=== PATIENT | male | born 1945 | race Caucasian/White ===

== ENCOUNTER 2017-10-08 16:43 | Inpatient (IN) | payer MEDICARE ==
[2017-10-08 18:42] LABS: ABS Basophils 0 10^3/ul (0-0.2); ABS Eosinophils 0 10^3/ul (0-0.6); ABS Lymphocytes 1.7 10^3/ul (1.0-4.8); ABS Monocytes 1.2 10^3/ul (0-0.8); ABS Neutrophils 11.9 10^3/ul (1.5-7.7); ABS Nucleated RBC 0 10^3/ul; Eosinophil % 0.1 % (0-6); Hematocrit 40 % (42-52); Hemoglobin 13.9 g/dl (14.0-18.0); Lymphocyte % 11.2 % (25-47); Mean Corpuscular HGB Conc 35 g/dl (31-36); Mean Corpuscular Hemoglobin 31 pg (27-31); Mean Corpuscular Volume 89 fL (80-94); Mean Platelet Volume 8 um3 (7.4-10.4); Nucleated Red Blood Cells % 0; Platelet Count 198 10^3/ul (150-450); Red Cell Distribution Width 14 % (10.5-15); White Blood Count 14.9 10^3/ul (3.5-10.8)
[2017-10-08 18:53] LABS: EGFR Non-African American 73.9 (>60)
--- NOTE | 2017-10-08 19:25 | RAD ---
INDICATION: Swelling of the left great toe COMPARISON: Left great toe radiograph April 20, 2016 TECHNIQUE: 3 views of the left foot were obtained. FINDINGS: There is soft tissue swelling evident at the left great toe. Along the dorsal margin of the distal left great toe phalanx there is a cortical defect similar in appearance to the April 20, 2016 radiograph. Otherwise the adequately corticated bones are properly aligned. Joint spaces appear maintained. No fracture, dislocation or focal bony abnormality is seen. IMPRESSION: SOFT TISSUE SWELLING IS EVIDENT IN THE LEFT GREAT TOE. A CORTICAL DEFECT ALONG THE PLANTAR MARGIN OF THE LEFT GREAT TOE DISTAL PHALANX IS SIMILAR IN APPEARANCE TO THE APRIL 20, 2016 RADIOGRAPH.
[2017-10-08] MEDS ORDERED: NS 0.9% 1000 ML*IV.FLUID IV ONE (19:40)
[2017-10-08 19:48] LABS: INR 1.02 (0.77-1.02)
[2017-10-08] MEDS ORDERED: Cefepime(*) 2 GM in NS 0.9% 50 ML* 50 ML IVPB ONE (19:49)
[2017-10-08] MEDS ORDERED: metroNIDAZOLE IV 500 MG/100ML* 500 MG/100 ML BAG IVPB ONE (19:49)
[2017-10-08] MEDS ORDERED: Ondansetron INJ* 2 MG/ML VIAL IV ONE (19:53)
[2017-10-08] MEDS ORDERED: Vancomycin(*) 1,250 MG in NS 0.9% 250 ML* 250 ML IVPB STA (19:53)
[2017-10-08] MEDS ORDERED: Vancomycin(*) 1,000 MG VIAL IVPB SCH (20:00)
--- NOTE | 2017-10-08 20:00 | ED ---
Lower Extremity - HPI Summary HPI Summary: 72M presents with left foot pain for past week. In the past day he has had increased swelling in his left great toe. He has a history of recurrent ulcer at the location due to his shoes. He states that he was seen for the wound clinic for the ulcer over the summer. The area started to bleed today. He has been having low grade fevers and rigors. He admits to nausea and dizziness. He denies any chest pain or SOB. He denies any abdominal pain. He has mild erythema around area. He has history of neuropathy in area. He does not have a history of PVD. He is diabetic on metformin. He does have stent placed. He had osteo a couple years ago near this toe. - History of Current Complaint Chief Complaint: EDExtremityLower Stated Complaint: LT FOOT BIG TOE SWOLLEN/REDNESS Time Seen by Provider: 10/08/17 18:35 Pain Intensity: 8 - Allergies/Home Medications Allergies/Adverse Reactions: Allergies Allergy/AdvReac Type Severity Reaction Status Date / Time Codeine Allergy Unknown Verified 01/26/16 14:32 Reaction Details Doxycycline Allergy Numbness Verified 10/08/17 17:10 Pregabalin [From Lyrica] Allergy Swelling Verified 10/08/17 17:10 Home Medications: Home Medications metFORMIN* [Glucophage 1000 MG TAB *] 1,000 mg PO BID 10/08/17 [History Confirmed 10/08/17] PMH/Surg Hx/FS Hx/Imm Hx Endocrine/Hematology History: Reports: Hx Diabetes Cardiovascular History: Reports: Hx Hypertension, Other Cardiovascular Problems/ Disorders - stent Denies: Hx Pacemaker/ICD Sensory History: Denies: Hx Hearing Aid Psychiatric History: Denies: Hx Panic Disorder - Surgical History Surgery Procedure, Year, and Place: ANGIOPLASTY STENTS DONE AT [facility] ~8 YEARS AGO PT DOES NOT HAVE ANY CARDS, LITHOTRIPSY, HERNIA REPAIR X2 , WISDOM TOOTH Infectious Disease History: No Infectious Disease History: Denies: Traveled Outside the [place] in Last 30 Days - Family History Known Family History: Positive: Hypertension - Social History Alcohol Use: None Substance Use Type: Reports: None Smoking Status (MU): Never Smoked Tobacco Review of Systems Positive: Fever Negative: Chest Pain Negative: Shortness Of Breath Positive: Other - swelling and redness left great toe All Other Systems Reviewed And Are Negative: Yes Physical Exam Triage Information Reviewed: Yes Vital Signs On Initial Exam: Initial Vitals Temp Pulse Resp BP Pulse Ox 99.4 F 83 17 117/67 96 10/08/17 17:05 10/08/17 17:05 10/08/17 17:05 10/08/17 17:05 10/08/17 17:05 Vital Signs Reviewed: Yes Appearance: Positive: Well-Appearing Skin: Positive: Warm, Dry Head/Face: Positive: Normal Head/Face Inspection Eyes: Positive: Normal, EOMI, KEZIA, Conjunctiva Clear ENT: Positive: Normal ENT inspection, Pharynx normal, TMs normal Respiratory/Lung Sounds: Positive: Clear to Auscultation, Breath Sounds Present Cardiovascular: Positive: Normal, RRR Abdomen Description: Positive: Nontender, Soft Bowel Sounds: Positive: Present Musculoskeletal: Positive: Strength/ROM Intact - left foot, Edema Left - great toe, Other - 2cm by 2cm ulcer on left toe with minimial bleeding, small amount of erythema surrounding area, no sensation to area Neurological: Positive: Normal Psychiatric: Positive: Normal - [place] Coma Scale Coma Scale Total: 15 Diagnostics - Vital Signs Vital Signs Temp Pulse Resp BP Pulse Ox 10/08/17 19:30 78 149/68 96 10/08/17 19:07 80 96 10/08/17 19:04 140/66 10/08/17 17:05 99.4 F 83 17 117/67 96 - Laboratory Lab Results: Lab Results 10/08/17 10/08/17 10/08/17 Range/Units 18:20 18:20 18:20 WBC 14.9 H (3.5-10.8) 10^3/ul RBC 4.50 (4.0-5.4) 10^6/ul Hgb 13.9 L (14.0-18.0) g/dl Hct 40 L (42-52) % MCV 89 (80-94) fL MCH 31 (27-31) pg MCHC 35 (31-36) g/dl RDW 14 (10.5-15) % Plt Count 198 (150-450) 10^3/ul MPV 8 (7.4-10.4) um3 Neut % (Auto) 80.1 (38-83) % Lymph % (Auto) 11.2 L (25-47) % Sutton % (Auto) 8.3 (1-9) % Eos % (Auto) 0.1 (0-6) % Baso % (Auto) 0.3 (0-2) % Absolute Neuts (auto) 11.9 H (1.5-7.7) 10^3/ul Absolute Lymphs (auto) 1.7 (1.0-4.8) 10^3/ul Absolute Monos (auto) 1.2 H (0-0.8) 10^3/ul Absolute Eos (auto) 0 (0-0.6) 10^3/ul Absolute Basos (auto) 0 (0-0.2) 10^3/ul Absolute Nucleated RBC 0 10^3/ul Nucleated RBC % 0 ESR Pending INR (Anticoag Therapy) (0.77-1.02) Sodium 133 (133-145) mmol/L Potassium 4.1 (3.5-5.0) mmol/L Chloride 95 L (101-111) mmol/L Carbon Dioxide 28 (22-32) mmol/L Anion Gap 10 (2-11) mmol/L BUN 18 (6-24) mg/dL Creatinine 1.00 (0.67-1.17) mg/dL Est GFR ( Amer) 95.0 (>60) Est GFR (Non-Af Amer) 73.9 (>60) BUN/Creatinine Ratio 18.0 (8-20) Glucose 191 H (70-100) mg/dL Lactic Acid 2.9 H* (0.5-2.0) mmol/L Calcium 9.8 (8.6-10.3) mg/dL Total Bilirubin 0.60 (0.2-1.0) mg/dL AST 8 L (13-39) U/L ALT 12 (7-52) U/L Alkaline Phosphatase 58 (34-104) U/L C-Reactive Protein 148.61 H (< 5.00) mg/L Total Protein 7.2 (6.4-8.9) g/dL Albumin 4.1 (3.2-5.2) g/dL Globulin 3.1 (2-4) g/dL Albumin/Globulin Ratio 1.3 (1-3) 10/08/17 Range/Units 18:20 WBC (3.5-10.8) 10^3/ul RBC (4.0-5.4) 10^6/ul Hgb (14.0-18.0) g/dl Hct (42-52) % MCV (80-94) fL MCH (27-31) pg MCHC (31-36) g/dl RDW (10.5-15) % Plt Count (150-450) 10^3/ul MPV (7.4-10.4) um3 Neut % (Auto) (38-83) % Lymph % (Auto) (25-47) % Sutton % (Auto) (1-9) % Eos % (Auto) (0-6) % Baso % (Auto) (0-2) % Absolute Neuts (auto) (1.5-7.7) 10^3/ul Absolute Lymphs (auto) (1.0-4.8) 10^3/ul Absolute Monos (auto) (0-0.8) 10^3/ul Absolute Eos (auto) (0-0.6) 10^3/ul Absolute Basos (auto) (0-0.2) 10^3/ul Absolute Nucleated RBC 10^3/ul Nucleated RBC % ESR INR (Anticoag Therapy) 1.02 (0.77-1.02) Sodium (133-145) mmol/L Potassium (3.5-5.0) mmol/L Chloride (101-111) mmol/L Carbon Dioxide (22-32) mmol/L Anion Gap (2-11) mmol/L BUN (6-24) mg/dL Creatinine (0.67-1.17) mg/dL Est GFR ( Amer) (>60) Est GFR (Non-Af Amer) (>60) BUN/Creatinine Ratio (8-20) Glucose (70-100) mg/dL Lactic Acid (0.5-2.0) mmol/L Calcium (8.6-10.3) mg/dL Total Bilirubin (0.2-1.0) mg/dL AST (13-39) U/L ALT (7-52) U/L Alkaline Phosphatase (34-104) U/L C-Reactive Protein (< 5.00) mg/L Total Protein (6.4-8.9) g/dL Albumin (3.2-5.2) g/dL Globulin (2-4) g/dL Albumin/Globulin Ratio (1-3) Result Diagrams: 10/08/17 18:20 10/08/17 18:20 Lab Statement: Any lab studies that have been ordered have been reviewed, and results considered in the medical decision making process. Lower Extremity Course/Dx - Course Course Of Treatment: 72M presents with left foot pain for past week. In the past day he has had increased swelling in his left great toe. He has a history of recurrent ulcer at the location due to his shoes. He states that he was seen for the wound clinic for the ulcer over the summer. The area started to bleed today. He has been having low grade fevers and rigors. He admits to nausea and dizziness. He denies any chest pain or SOB. He denies any abdominal pain. He has mild erythema around area. He has history of neuropathy in area. He does not have a history of PVD. He is diabetic on metformin. He does have stent placed. He had osteo a couple years ago near this toe. on exam has 2cm by 2cm ulceration of left great toe with edema and erythema. wbc 14 and lactic 2.9 xray shows soft tissue swelling. dr sears called and recommended vascular study on patient which was normal. gave iv fluids and antibiotic accoring to septic criteria. dr nieto agrees to admit for diabetic ulcer. - Diagnoses Differential Diagnosis/HQI/PQRI: Positive: Cellulitis, Osteomyelitis, Other - diabetic ulcer Provider Diagnoses: Diabetic foot ulcer Discharge - Discharge Plan Condition: Stable Disposition: ADMITTED TO [facility]
--- NOTE | 2017-10-08 22:02 | RAD ---
INDICATION: Left lower extremity claudication. COMPARISON: MARLYN dated April 20, 2016 TECHNIQUE: Rubio scale, color Doppler, and spectral analysis utilized to image the left lower extremity arteries. Flow velocities were determined at each visualized artery. REPORT: The left common femoral artery, proximal femoral profundus, superficial femoral artery, popliteal artery and infrapopliteal arteries exhibit patency. There is flow identified at the dorsalis pedis and distal most portion of the posterior tibial artery. There are mildly elevated flow velocities recorded and the superficial femoral artery measuring 151 cm/s proximally and up to 178 cm/s at the mid SFA. The popliteal artery measures up to 116 cm/s. There are no pathologically dilated arteries visualized. IMPRESSION: In-line flow is documented from the common iliac to proximal pedal arteries in the left lower extremity. There are mildly increased flow velocities in the superficial femoral and popliteal arteries.
[2017-10-08 23:33] LABS: Urine Appearance Clear; Urine Blood Negative (Negative); Urine Color Yellow; Urine Ketones Trace (Negative); Urine Protein 1+(30 mg/dL) (Negative); Urine Specific Gravity 1.017 (1.010-1.030); Urine Urobilinogen Negative (Negative)
[2017-10-08] MEDS ORDERED: Dextrose 50% Syringe 50 ML* 25 GM/50 ML SYRINGE IV PUSH PRN (23:55)
[2017-10-09] MEDS ORDERED: Vancomycin per Pharmacy* NOTE FOLLOW UP PRN (00:02)
[2017-10-09] MEDS: Insulin LISPRO* 1 UNITS UNIT SUBCUT SCH ×5 (00:29→20:52)
[2017-10-09] MEDS: Atorvastatin* 20 MG TAB PO SCH ×2 (00:31→17:34)
[2017-10-09] MEDS ORDERED: Cefepime(*) 2 GM in D5W 100 ML BAG* 100 ML IVPB ONE (01:00)
[2017-10-09] MEDS: metroNIDAZOLE IV 500 MG/100ML* 500 MG/100 ML BAG IVPB SCH ×3 (03:32→20:18)
[2017-10-09 05:43] LABS: ABS Basophils 0 10^3/ul (0-0.2); ABS Eosinophils 0 10^3/ul (0-0.6); ABS Lymphocytes 1.5 10^3/ul (1.0-4.8); ABS Monocytes 0.9 10^3/ul (0-0.8); ABS Nucleated RBC 0 10^3/ul; Eosinophil % 0.2 % (0-6); Hematocrit 33 % (42-52); Hemoglobin 11.7 g/dl (14.0-18.0); Lymphocyte % 14.3 % (25-47); Mean Corpuscular HGB Conc 36 g/dl (31-36); Mean Corpuscular Hemoglobin 32 pg (27-31); Mean Corpuscular Volume 89 fL (80-94); Mean Platelet Volume 8 um3 (7.4-10.4); Nucleated Red Blood Cells % 0; Platelet Count 148 10^3/ul (150-450); Red Blood Count 3.72 10^6/ul (4.0-5.4); Red Cell Distribution Width 14 % (10.5-15); White Blood Count 10.4 10^3/ul (3.5-10.8)
[2017-10-09 06:01] LABS: EGFR Non-African American 92.9 (>60)
--- NOTE | 2017-10-09 07:31 | HP ---
HISTORY AND PHYSICAL: DATE OF ADMISSION: 10/08/17 ADMITTING PROVIDER: Calin Tijerina MD PRIMARY CARE PHYSICIAN: Jose F Gupta MD CHIEF COMPLAINT: Fevers, chills, left first toe ulceration x2 to 3 weeks with open drainage. 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 The patient denies any recent antibiotic use. He does see a senior sales assistant starts with a 'P', he states but cannot relate otherwise, does not have a firm grasp on his medication history, who presents with leukocytosis, subjective fevers, lactic acid at 2.9 and x-ray of the left foot showing soft tissue swelling, CRP elevated at 148. Started on Flagyl, vancomycin, and cefepime for concern for diabetic foot ulcer. The patient denies any headaches, does have episode of severe nausea the morning of admission, no dysuria. The patient has noted some erythema on his left foot. PAST MEDICAL HISTORY: 1. Hypertension. 2. Diabetes. 3. Diabetic neuropathy. 4. Hyperlipidemia. HOME MEDICATIONS: 1. Simvastatin 40 mg q.p.m. 2. Lisinopril 10 mg/hydrochlorothiazide 12.5 mg p.o. daily. 3. Gabapentin 600 mg p.o. t.i.d. 4. Plavix 75 mg p.o. daily. 5. Atenolol 50 mg p.o. daily. 6. Aspirin 325 mg daily. 7. Metformin 1000 mg p.o. b.i.d. ALLERGIES: CODEINE, DOXYCYCLINE, PREGABALIN. FAMILY HISTORY: Father of heart disease at age 47, mother at age 94. SOCIAL HISTORY: Nonsmoker, nondrinker. The patient desires to be a full code. REVIEW OF SYSTEMS: Complete 14-point review of systems is negative except as per HPI. PHYSICAL EXAMINATION GENERAL APPEARANCE: No acute distress. VITAL SIGNS: Currently temperature 101.1, satting 94% on room air, respiratory rate 18, pulse 80, and blood pressure 132/68. HEENT: Normocephalic, atraumatic. Pupils equally round and reactive to light. Extraocular motions are intact. Oropharynx clear. NECK: Supple. PULMONARY: Clear to auscultation bilaterally with no wheezing, rales, or rhonchi. CARDIOVASCULAR: Regular rate and rhythm. No murmurs, rubs, or gallops. ABDOMEN: Soft, nontender, nondistended. No peritoneal signs. No guarding. EXTREMITIES: Warm, well perfused. Left foot with erythema and distal first toe with an area of ulceration and erythema, no davie drainage. NEUROLOGIC: Cranial nerves II through XII grossly intact. LABORATORY DATA: White count 14.9, hemoglobin 13.9, hematocrit 40, platelets 198. INR 1.02. Sodium 133, potassium 4.1, chloride 95, carbon dioxide 28, creatinine 1.00, glucose 191, lactic acid 2.9, CRP 148, troponin 0.00. Urinalysis 1+ protein, 1+ rbc's, trace ketones. IMAGING: Foot x-ray of the left foot demonstrated soft tissue left great toe with a cortical defect along the plantar margin of the left great toe distal phalanx, similar in appearance to 04/20/16. Duplex of the lower left extremity showed in- line flow documented from the common iliac to proximal pedal arteries in the left lower extremity. There is a mild increase in flow velocities at the superficial femoral and popliteal arteries. ASSESSMENT AND PLAN: The patient is a 72-year-old male presenting with likely a diabetic foot ulcer with elevated lactic acid, fevers, leukocytosis, meeting SIRS criteria. The patient is being admitted for inpatient status for IV antibiotics. We will get a wound consult. Consider MRI of the left lower extremity. We will add ESR. Consider ID consult. We will continue the vancomycin, Flagyl, and cefepime for now. We will put him on sliding scale insulin. Hold his metformin. Point of care testing q.a.c. and q.h.s. Continue his atenolol and hold his lisinopril/hydrochlorothiazide for now. We will titrate back his antihypertensives in the setting of infection as able. We will continue his Plavix and aspirin. Continue simvastatin. Continue carbohydrate consistent diet. He is a full code. [id number]/CPS #: [id number] MTDD
[2017-10-09] MEDS ORDERED: Atenolol TAB* 50 MG PO SCH (09:00)
[2017-10-09] MEDS ORDERED: Aspirin TAB* 325 MG PO SCH (09:00)
[2017-10-09] MEDS ORDERED: Clopidogrel TAB* 75 MG PO SCH (09:00)
[2017-10-09] MEDS: Gabapentin CAP(*) 300 MG PO SCH ×3 (09:37→20:52)
[2017-10-09] MEDS ORDERED: Vancomycin(*) 1,000 MG in NS 0.9% 250 ML* 250 ML IVPB SCH (10:00)
[2017-10-09] MEDS ORDERED: Morphine INJ* 2 MG/ML 1 ML SYRINGE (TWO MG - NEW SYRINGE VERSION) IV ONE (10:44)
[2017-10-09] MEDS: Cefepime(*) 2 GM in D5W 50 ML BAG* 50 ML IVPB SCH (13:40)
[2017-10-09] MEDS: oxyCODONE/Acetamin 5/325 MG* TAB PO PRN (15:02)
--- NOTE | 2017-10-09 16:06 | RAD ---
Indication: Ulcer at the LEFT great toe. Assess for osteomyelitis Comparison: October 08, 2017 radiographs. May 03, 2016 3 phase bone scan Technique: Tiny Picturesa 1.5 Farzana [id number] with GEM suite. Noncontrast MRI LEFT foot from the level of the transverse tarsal joint through the toes. Report: Diffuse bone marrow edema at the first distal phalanx with osseous erosion at the tuft and partial loss of normal T1 marrow hyperintensity throughout. Small interphalangeal joint effusion. No additional suspicious bone marrow signal change within the [id number]. Negative for fracture. Diffuse subcutaneous tissue plane and skeletal muscle edema without evidence for a loculated soft tissue abscess collection. IMPRESSION: The constellation of findings is consistent with osteomyelitis at the first distal phalanx corresponding with the reported soft tissue ulcer. No loculated soft tissue plane abscess collection evident.
--- NOTE | 2017-10-09 20:07 | PN ---
Subjective Date of Service: 10/09/17 Interval History: Patient seen and examined. Was initially refusing insulin per RN, but now ok with taking. Had MRI, states pain improved after morphine before MRI and PRN percocet, Has significant neuropathy at baseline, but stabbing quality pain to affected wound. Some chills intermittently when pain increases. Low grade fevers overnight. Tolerating PO. No chest pain, no SO, no N/V. Objective Active Medications: Acetaminophen (Tylenol Tab*) 650 mg PO Q6H PRN PRN Reason: FEVER/PAIN Aspirin (Aspirin Tab*) 325 mg PO BEDTIME JEANNE Atenolol (Tenormin Tab*) 50 mg PO BEDTIME JEANNE Atorvastatin Calcium (Lipitor*) 20 mg PO QPM [facility] Last Admin: 10/09/17 17:34 Dose: Not Given Clopidogrel Bisulfate (Plavix Tab*) 75 mg PO 2100 [facility] Dextrose (D50w Syringe 50 Ml*) 12.5 gm IV PUSH .FOR FS < 60 - SS PRN PRN Reason: FS < 60 Gabapentin (Neurontin Cap(*)) 600 mg PO TID [facility] Last Admin: 10/09/17 13:40 Dose: 600 mg Metronidazole/Sodium Chloride (Flagyl 500 Mg Ivpb*) 500 mg in 100 mls @ 100 mls /hr IVPB Q8H [facility] Last Admin: 10/09/17 12:36 Dose: 100 mls/hr Cefepime HCl 2 gm/ Dextrose 50 mls @ 100 mls/hr IVPB Q12H [facility] Last Admin: 10/09/17 13:40 Dose: 100 mls/hr Insulin Human Lispro (Humalog*) 0 units SUBCUT ACHS [facility] PRN Reason: Protocol Last Admin: 10/09/17 18:12 Dose: 2 units Oxycodone/Acetaminophen (Percocet 5/325 Tab*) 1 tab PO Q6H PRN PRN Reason: PAIN Last Admin: 10/09/17 15:02 Dose: 1 tab Pharmacy Profile Note (Vancomycin Trough Check) 1 note FOLLOW UP 929 ONE Stop: 10/10/17 09:31 Vital Signs - 8 hr 10/09/17 10/09/17 10/09/17 13:27 13:40 15:02 Respiratory 16 16 16 Rate 10/09/17 17:36 Respiratory 16 Rate Oxygen Devices in Use Now: None Appearance: Alert, NAD Eyes: No Scleral Icterus, PERRLA Ears/Nose/Mouth/Throat: NL Teeth, Lips, Gums, Mucous Membranes Moist Neck: NL Appearance and Movements; NL JVP, Trachea Midline Respiratory: Symmetrical Chest Expansion and Respiratory Effort, Clear to Auscultation Cardiovascular: NL Sounds; No Murmurs; No JVD, RRR Abdominal: NL Sounds; No Tenderness; No Distention Extremities: No Edema - wound dressed and wrapped, dressing CDI Skin: No Rash or Ulcers Neurological: Alert and Oriented x 3 Nutrition: Taking PO's Result Diagrams: 10/09/17 05:25 10/09/17 05:25 Additional Lab and Data: Lab Results 10/08/17 10/08/17 10/08/17 Range/Units 18:20 18:20 18:20 WBC 14.9 H (3.5-10.8) 10^3/ul RBC 4.50 (4.0-5.4) 10^6/ul Hgb 13.9 L (14.0-18.0) g/dl Hct 40 L (42-52) % MCV 89 (80-94) fL MCH 31 (27-31) pg MCHC 35 (31-36) g/dl RDW 14 (10.5-15) % Plt Count 198 (150-450) 10^3/ul MPV 8 (7.4-10.4) um3 Neut % (Auto) 80.1 (38-83) % Lymph % (Auto) 11.2 L (25-47) % [place] % (Auto) 8.3 (1-9) % Eos % (Auto) 0.1 (0-6) % Baso % (Auto) 0.3 (0-2) % Absolute Neuts (auto) 11.9 H (1.5-7.7) 10^3/ul Absolute Lymphs (auto) 1.7 (1.0-4.8) 10^3/ul Absolute Monos (auto) 1.2 H (0-0.8) 10^3/ul Absolute Eos (auto) 0 (0-0.6) 10^3/ul Absolute Basos (auto) 0 (0-0.2) 10^3/ul Absolute Nucleated RBC 0 10^3/ul Nucleated RBC % 0 ESR Pending INR (Anticoag Therapy) (0.77-1.02) Sodium 133 (133-145) mmol/L Potassium 4.1 (3.5-5.0) mmol/L Chloride 95 L (101-111) mmol/L Carbon Dioxide 28 (22-32) mmol/L Anion Gap 10 (2-11) mmol/L BUN 18 (6-24) mg/dL Creatinine 1.00 (0.67-1.17) mg/dL Est GFR ( Amer) 95.0 (>60) Est GFR (Non-Af Amer) 73.9 (>60) BUN/Creatinine Ratio 18.0 (8-20) Glucose 191 H (70-100) mg/dL Lactic Acid 2.9 H* (0.5-2.0) mmol/L Calcium 9.8 (8.6-10.3) mg/dL Total Bilirubin 0.60 (0.2-1.0) mg/dL AST 8 L (13-39) U/L ALT 12 (7-52) U/L Alkaline Phosphatase 58 (34-104) U/L C-Reactive Protein 148.61 H (< 5.00) mg/L Total Protein 7.2 (6.4-8.9) g/dL Albumin 4.1 (3.2-5.2) g/dL Globulin 3.1 (2-4) g/dL Albumin/Globulin Ratio 1.3 (1-3) 10/08/17 Range/Units 18:20 WBC (3.5-10.8) 10^3/ul RBC (4.0-5.4) 10^6/ul Hgb (14.0-18.0) g/dl Hct (42-52) % MCV (80-94) fL MCH (27-31) pg MCHC (31-36) g/dl RDW (10.5-15) % Plt Count (150-450) 10^3/ul MPV (7.4-10.4) um3 Neut % (Auto) (38-83) % Lymph % (Auto) (25-47) % [place] % (Auto) (1-9) % Eos % (Auto) (0-6) % Baso % (Auto) (0-2) % Absolute Neuts (auto) (1.5-7.7) 10^3/ul Absolute Lymphs (auto) (1.0-4.8) 10^3/ul Absolute Monos (auto) (0-0.8) 10^3/ul Absolute Eos (auto) (0-0.6) 10^3/ul Absolute Basos (auto) (0-0.2) 10^3/ul Absolute Nucleated RBC 10^3/ul Nucleated RBC % ESR INR (Anticoag Therapy) 1.02 (0.77-1.02) Sodium (133-145) mmol/L Potassium (3.5-5.0) mmol/L Chloride (101-111) mmol/L Carbon Dioxide (22-32) mmol/L Anion Gap (2-11) mmol/L BUN (6-24) mg/dL Creatinine (0.67-1.17) mg/dL Est GFR ( Amer) (>60) Est GFR (Non-Af Amer) (>60) BUN/Creatinine Ratio (8-20) Glucose (70-100) mg/dL Lactic Acid (0.5-2.0) mmol/L Calcium (8.6-10.3) mg/dL Total Bilirubin (0.2-1.0) mg/dL AST (13-39) U/L ALT (7-52) U/L Alkaline Phosphatase (34-104) U/L C-Reactive Protein (< 5.00) mg/L Total Protein (6.4-8.9) g/dL Albumin (3.2-5.2) g/dL Globulin (2-4) g/dL Albumin/Globulin Ratio (1-3) Microbiology and Other Data: Microbiology 10/09/17 00:30 Nasal Screen MRSA (PCR)(JACKELIN) - Final Nasal Mrsa Negative Diagnostic Imaging: Patient Name: ZORA GASPAR Medical Record#: [id number] Ordering Physician: Britany Grant NP Acct.#: [id number] : 1945 Age: 72 Sex: M Location: SURGICAL STAY UNIT Exam Date: 10/09/17 0750 ADM Status: ADM IN Order Information: MRI LOWER EXTREMITY LEFT W/O Accession Number: [id number] CPT: 46715 Indication: Ulcer at the LEFT great toe. Assess for osteomyelitis Comparison: October 08, 2017 radiographs. May 03, 2016 3 phase bone scan Technique: GE [place] 1.5 Farzana [id number] with GEM suite. Noncontrast MRI LEFT foot from the level of the transverse tarsal joint through the toes. Report: Diffuse bone marrow edema at the first distal phalanx with osseous erosion at the tuft and partial loss of normal T1 marrow hyperintensity throughout. Small interphalangeal joint effusion. No additional suspicious bone marrow signal change within the [id number]. Negative for fracture. Diffuse subcutaneous tissue plane and skeletal muscle edema without evidence for a loculated soft tissue abscess collection. IMPRESSION: The constellation of findings is consistent with osteomyelitis at the first distal phalanx corresponding with the reported soft tissue ulcer. No loculated soft tissue plane abscess collection evident. <Electronically signed by Samson Ortiz MD in OV> 10/09/17 1602 Dictated By: Samson Ortiz MD Dictated Date/Time: 10/09/17 1602 Transcribed Date/Time: 10/09/17 9868 Copy to: CC:Jluis Zepeda MD; Britany Grant NP; Calin Tijerina MD; Jose F Gupta MD Imaging - [facility] Imaging - [facility] [address] [address] ph ([phone]) ph ([phone]) ph ([phone]) 1 of 1 Assess/Plan/Problems-Billing Assessment: This is a 72 year old male patient with severe diabetic toe wound, neuropathy, HTN and HLP that now presents with osteomyelitis of the toe requiring IV atbx and surgical consultation. - Patient Problems (1) Acute osteomyelitis of toe of left foot Code(s): M86.172 - OTHER ACUTE OSTEOMYELITIS, LEFT ANKLE AND FOOT SNOMED Code( s): 903197724 Comment: - ID consulted - MRI as above - Will consult surgery in AM to evaluate MRI, consider debridement vs partial amputation? - Local wound care - Follow cultures - Follow temps and WBCs - NPM=775, LA=1.5 (2) Diabetes mellitus Code(s): E11.9 - TYPE 2 DIABETES MELLITUS WITHOUT COMPLICATIONS SNOMED Code(s) : 62108976 Comment: - Lispro SS with BG AC and HS (3) Diabetic neuropathy Code(s): E11.40 - TYPE 2 DIABETES MELLITUS WITH DIABETIC NEUROPATHY, UNSP SNOMED Code(s): 716171203 Comment: - Maintained on gabapentin - Percocet PRN (4) Hypertension Code(s): I10 - ESSENTIAL (PRIMARY) HYPERTENSION SNOMED Code(s): 67523171 Comment: - Stable on atenolol (5) Hyperlipidemia Code(s): E78.5 - HYPERLIPIDEMIA, UNSPECIFIED SNOMED Code(s): 41395402 Comment: - may use simvastatin from home Status and Disposition: Remain inpatient for IV atbx and possible surgical intervention. Counseling and/or Coordination of Care Minutes: coordinated with staff and patient.
[2017-10-09] MEDS: Acetaminophen TAB* 325 MG PO PRN (20:18)
[2017-10-09] MEDS: Atenolol TAB* 50 MG PO SCH (20:52)
[2017-10-09] MEDS: Aspirin TAB* 325 MG PO SCH (20:52)
[2017-10-09] MEDS: Clopidogrel TAB* 75 MG PO SCH (20:52)
--- NOTE | 2017-10-09 22:20 | CONS ---
CONSULTATION REPORT: DATE OF CONSULTATION: 10/09/17 REQUESTING PROVIDER: Britany Grant NP CONSULTING SERVICE: Infectious Disease. REASON FOR CONSULTATION: Left great toe infection. IMPRESSION: 1. Distal left great toe ulcer in the setting of a hammertoe deformity, diabetic neuropathy, mild vascular disease. He is growing group B-strep in the blood, source is likely the toe, he has had an MRI that shows osteomyelitis of distal phalanx. Given the duration of his symptoms, I suspect he most likely has a chronic osteomyelitis. 2. Diabetes with neuropathy. 3. History of left great toe ulcer 2016, which has come and gone over the last year and a half. RECOMMENDATIONS: 1. We will stop vancomycin, continue Flagyl, change cefepime to ceftriaxone and check a transthoracic echocardiogram. Given another good source for the bacteremia, no murmur and no peripheral stigmata, if there is a negative transthoracic echocardiogram, there is no infective endocarditis. 2. I will ask Dr. Carr and Dr. Harding to check in with him. The patient and I discussed combination of partial toe amputation and mcfp antibiotics as his best chance to cure this and prevent relapse and remission of his ulcer over the next months to years. HISTORY OF PRESENT ILLNESS: This is a 72-year-old man with diabetes, neuropathy , and left great toe infection, admitted with fevers, chills, and redness in the toes spreading up to forefoot and midfoot. He came to the hospital on the and an x- ray was taken in the emergency room that showed a cortical defect on the plantar distal phalanx. He had an MRI today that showed osteomyelitis of the distal phalanx, left great toe as well. He was started on vancomycin, cefepime, Flagyl overnight. Blood cultures were taken that came back all growing Group B streptococcus. He had fever to 38.5 overnight, he is afebrile now, he does not have pain in the toe, does not have much feeling in his toes at all. His white count was 15,000 on admission, it is down to 10,000 today. About a year and a half ago, he was followed at the wound clinic, the left great toe had a similar presentation. He had an x-ray at that time that showed cortical changes in the distal phalanx as well. The wound eventually healed up , though has since then sometimes opened partially, then closed again, has developed a callus, has followed with the Podiatry. PAST MEDICAL HISTORY: 1. Diabetes with neuropathy. 2. Left great toe osteomyelitis. 3. Hypertension. 4. Hyperlipidemia. ALLERGIES: CODEINE, DOXYCYCLINE, PREGABALIN. MEDICATIONS: 1. Tylenol. 2. Aspirin. 3. Atenolol. 4. Lipitor. 5. Cefepime 2 g IV every 12 hours. 6. Plavix. 7. Gabapentin. 8. Flagyl 500 mg every 8 hours. 9. Vancomycin. SOCIAL HISTORY: He lives outside [place] with . He has no travel. FAMILY HISTORY: No recurrent infections or tuberculosis. Father at 47 with coronary artery disease. Mother at 94 of old age. REVIEW OF SYSTEMS: A 14-point review of systems is negative except as noted above. PHYSICAL EXAMINATION: Vital Signs: Temperature is 37.5, heart rate 95, respiratory rate 20, blood pressure 140/70, oxygen saturation is 93% on room air. In general, he is awake, not in distress. Neurologic: He is oriented x3. Follows all commands. Answers all questions. Moves all the extremities. Sensation is decreased to light touch in both feet. HEENT: There is no conjunctival hemorrhage. Oropharynx is without lesions. Neck: Supple. Lymph nodes: There is no inguinal, axillary, or epitrochlear lymphadenopathy. Heart: Regular rate and rhythm without murmurs, rubs, or gallops. Lungs: Clear to auscultation bilaterally. Abdomen: Soft, nontender, nondistended. There are bowel sounds present. Skin: There is no rash or splinter hemorrhages. Musculoskeletal: There is no spine tenderness to palpation. There is 1+ dorsalis pedis pulses bilaterally. The left great toe has somewhat of a hammertoe deformity and a distal ulcer at the tip with a surrounding callus, extends up to the nail bed. There is nothing draining, there is nothing to culture, there is no fluctuance or crepitus. There is diffuse edema, distortion of the toe anatomy and erythema spreading up into the forefoot. LABORATORY DATA: White blood cell count 10, hemoglobin 11.7, platelets 148, creatinine 0.8, CRP was 115 on admission. Please see impression and recommendations outlined above. Thank you for asking me to see Mr. Mejia in consultation. [id number]/[facility] #: [id number] [facility]
[2017-10-10] MEDS: Cefepime(*) 2 GM in D5W 50 ML BAG* 50 ML IVPB SCH ×2 (01:03→13:32)
[2017-10-10] MEDS: metroNIDAZOLE IV 500 MG/100ML* 500 MG/100 ML BAG IVPB SCH ×3 (03:59→19:40)
[2017-10-10 06:25] LABS: ABS Basophils 0 10^3/ul (0-0.2); ABS Eosinophils 0 10^3/ul (0-0.6); ABS Lymphocytes 1.2 10^3/ul (1.0-4.8); ABS Monocytes 0.8 10^3/ul (0-0.8); ABS Neutrophils 5.9 10^3/ul (1.5-7.7); ABS Nucleated RBC 0 10^3/ul; Eosinophil % 0.5 % (0-6); Hematocrit 36 % (42-52); Hemoglobin 12.2 g/dl (14.0-18.0); Lymphocyte % 15.5 % (25-47); Mean Corpuscular HGB Conc 34 g/dl (31-36); Mean Corpuscular Hemoglobin 30 pg (27-31); Mean Corpuscular Volume 89 fL (80-94); Mean Platelet Volume 8 um3 (7.4-10.4); Nucleated Red Blood Cells % 0.2; Platelet Count 147 10^3/ul (150-450); Red Blood Count 4.04 10^6/ul (4.0-5.4); Red Cell Distribution Width 14 % (10.5-15); White Blood Count 8.1 10^3/ul (3.5-10.8)
[2017-10-10 06:36] LABS: EGFR Non-African American 77.4 (>60)
[2017-10-10] MEDS: Insulin LISPRO* 1 UNITS UNIT SUBCUT SCH ×4 (08:03→21:27)
[2017-10-10] MEDS ORDERED: Vancomycin Trough Check NOTE FOLLOW UP ONE (09:30)
[2017-10-10] MEDS: Gabapentin CAP(*) 300 MG PO SCH ×3 (10:32→21:25)
--- NOTE | 2017-10-10 12:42 | HP ---
ORTHOPEDIC HISTORY AND PHYSICAL/CONSULTATION: DATE OF ADMISSION: 10/10/17 REQUESTING SERVICE: Infectious Diseases. CHIEF COMPLAINT: Left great toe pain. HISTORY OF PRESENT ILLNESS: Shayne is a 72-year-old man with diabetes, diabetic neuropathy, coronary artery disease, who presents with fevers and chills and left great toe pain and infection. He reports that he has had multiple ulcers on his great toe over the last few years that periodically close up and reopen. This most recent bout started 2 to 3 weeks ago with an ulcer at the tip of his great toe. He reports that pain, swelling and redness have gradually gotten worse over the last few weeks. He was admitted to the medical service and Infectious Diseases was consulted and recommended a surgical consultation when osteomyelitis was found. The pain and ulcer are located at the left great toe and are reported as daily, mild, dull. He reports that the pain is worse with dependency and weightbearing, and improved with elevation and rest. There is associated swelling and redness. PAST MEDICAL HISTORY: Coronary artery disease, hypertension, diabetes, diabetic neuropathy, hyperlipidemia. PAST SURGICAL HISTORY: He reports that he had stents placed in 2002 and he has been on Plavix since then. HOME MEDICATIONS: 1. Simvastatin. 2. Lisinopril. 3. Gabapentin. 4. Plavix. 5. Atenolol. 6. Aspirin. 7. Metformin. ALLERGIES: CODEINE, DOXYCYCLINE, PREGABALIN. FAMILY HISTORY: Heart disease in his father. SOCIAL HISTORY: He does not smoke or use illicit drugs. He uses no assistive ambulatory devices at baseline. REVIEW OF SYSTEMS: Positive for recent fever. Negative for recent visual changes, difficulty swallowing, chest pain, shortness of breath, abdominal pain , hematuria, easy bruising, diffuse weakness, lack of coordination, or diffuse rash. PHYSICAL EXAMINATION GENERAL: He is well appearing and in no acute distress. VITAL SIGNS: His temperature is 99.0, pulse rate 71, respiratory rate 16, O2 saturation 97% on room air, and blood pressure 121/64. CARDIOVASCULAR: Pulse examination reveals weak, but present, dorsalis pedal pulses bilaterally. He does have brisk capillary refill in all 4 of his extremities. There are no varicosities. LYMPHATIC: No lymphadenopathy is appreciated to the left lower extremity. SKIN: Bilateral upper and right lower extremity do not reveal any ulcerative lesions. PSYCHIATRIC/NEUROLOGICAL: He has appropriate mood and affect. He is alert and oriented to person, place and time. There is no significant abnormality in coordination appreciated. He has normoreflexive in the left lower extremity. ABDOMEN: He is soft, nontender, nondistended. MUSCULOSKELETAL: Gait analysis reveals a bit of an antalgic gait on the left side. Bilateral upper extremities and contralateral lower extremity show full range of motion and no evidence of instability and no tenderness to palpation. He has 5/5 strength and there is no gross deformity. Examination of the left lower extremity reveals with sitting he has good 5/5 motor strength, but does have increased light touch sensation throughout the foot. There is no global swelling, edema, or varicosities; however, there is some local swelling at the great toe with some erythema. There is an ulcer at the tip of the great toe as well without active drainage at this time. There is associated erythema. He does have a weakly palpable dorsalis pedis pulse and good capillary refill. He has painless range of motion of the ankle. IMAGING: X-rays and MRI were obtained and independently reviewed and do show osteomyelitis of the distal phalanx of the left great toe. LABORATORY DATA: CRP 148. White blood count 8.1, down from 14.9 on admission; hematocrit 36. ESR 41. ASSESSMENT: Shayne is a 72-year-old man with diabetic neuropathy who has had recurrent problem with his left great toe with ulceration. He does now have both an ulceration and underlying osteomyelitis of the distal phalanx. We discussed both nonoperative and operative options at length today in his hospital room. This did include nonoperative treatment with antibiotics versus a partial great toe amputation. We discussed the pros and cons and risks and benefits of surgery at length. These did include possibility of not healing and clearing the infection, need for further surgery or amputation, and even the chance catastrophic complication, such as loss of limb. We also discussed basic surgical risks including bleeding, infection, wound problems, and blood clot. After having this discussion he did express his desire to move forward with a left partial great toe amputation. Therefore, we will plan on doing this tomorrow. He will be n.p.o. from midnight tonight. We did discuss the recovery and all of his questions were answered. [id number]/[facility] #: [id number] TANGELA
--- NOTE | 2017-10-10 13:22 | ECHO ---
Patient: ZORA GASPAR [facility] Rec#: [id number] : 1945 Date: 10/10/2017 Age: 72y Height: 175.26 cm / 69.0 in Weight: 78.93 kg / 174.0 lbs Sex: M BSA: 1.95 Room#: [facility] Admit Date#: 10/08/2017 Type: Inpatient Referring: Jluis Zepeda MD Reading: Kenya Jiang MD Highway Landscape Architect: Ifrah HamiltonMALORIE CC: Jose F Gupta MD Transthoracic Echocardiogram Indication: Bacteremia, + BC BP: 139/79 HR: 65 Rhythm: NSR Findings History: DMII, HTN, HLD, + BS strep Agalactiae. Technical Comments: The study quality is fair. Completed at 0935. Left Ventricle: The left ventricular chamber size is normal. Mild concentric left ventricular hypertrophy is observed. There is normal left ventricular systolic function. The estimated ejection fraction is 60-65%. There is no consistent Doppler evidence of clinically significant diastolic dysfunction. Left Atrium: The left atrium is mildly dilated. Right Ventricle: Moderator Band present. The right ventricle is mildly dilated. Near the apex is an area of relative hypokinesis on the free wall, hinge point seen. The right ventricular global systolic function is low normal. Right Atrium: The right atrium is moderately dilated. Aortic Valve: The aortic valve is trileaflet. There is mild thickening of the non coronary cusp.Lambl'e exressence noted. There is a trace of aortic regurgitation. There is no evidence of aortic stenosis. A mass is visualized on the aortic valve which appears consistent with a vegetation.image 7, posterior leaflet, narrow mobile structure flipping to both sides of the leaflet. Mitral Valve: There is posterior mitral annular calcification. The mitral valve leaflets are mildly thickened. There is a trace of mitral regurgitation. There is no evidence of mitral stenosis. No vegetation is observed on the mitral valve. Tricuspid Valve: The tricuspid valve leaflets are normal. There is mild tricuspid regurgitation. The right ventricular systolic pressure is estimated at 33 mmHg. No pulmonary hypertension is noted. There is no tricuspid stenosis. No vegetation is observed on the tricuspid valve. Pulmonic Valve: The pulmonic valve appears normal. There is a trace pulmonic regurgitation. There is no pulmonic stenosis. No vegetation is observed on the pulmonic valve. Pericardium: There is no significant pericardial effusion. Aorta: There is mild dilatation of the ascending aorta. There is no dilatation of the aortic arch. There is moderate dilatation of the aortic root. Pulmonary Artery: The main pulmonary artery appears normal. Venous: The inferior vena cava is dilated. There is an approximate 50% respiratory change in the inferior vena cava dimension. Conclusions Mild concentric left ventricular hypertrophy is observed. There is normal left ventricular systolic function. The estimated ejection fraction is 60-65%. The right ventricle is mildly dilated. Near the apex of the free wall of the RV is an area of relative hypokinesis, hinge point seen. There is mild thickening of the non coronary cusp of the trileaflet aortic valve. Lambl'e exressence noted posteriorly (0.1x0.4 cm). Aadditionaly, a mass is visualized on the aortic valve suggestive of a vegetation: image 7, posterior leaflet, narrow mobile structure flipping to both sides of the leaflet (0.3 x 0.6 cm). There is a trace of aortic regurgitation. The mitral valve leaflets are mildly thickened. There is a trace of mitral regurgitation. There is mild tricuspid regurgitation. There is a trace pulmonic regurgitation. Mild dilatation of the ascending aorta: 3.7 cm. No prior study to compare. Consider MARAH (transesophogeal echo) for follow up on aortic valve iif clinically appropriate. Measurements Name Value Normal Range RVIDd (AP) 2D 3.3 cm (0.9 - 2.6) RVDdMajor (2D) 4.5 cm (2.2 - 4.4) RAd ISD 4CH 5.8 cm (3.4 - 4.9) RA (A4C)W 3.9 cm (2.9 - 4.6) IVSd (2D) 1.1 cm (0.6 - 1) LVPWd (2D) 1.1 cm (0.6 - 1) LVIDd (2D) 4.5 cm (3.6 - 5.4) LVIDs (2D) 2.7 cm - LV FS (2D) 39 % (25 - 45) EF Teichholz (2D) 7 % - Aortic Annulus 2 cm (1.4 - 2.6) Ao root diameter (2D) 4.1 cm (2.1 - 3.5) Ascending Ao 3.7 cm (2.1 - 3.4) Aortic arch 2.7 cm (1.8 - 3.4) LA dimension (AP) 2D 4.6 cm (2.3 - 3.8) LAd ISD 4CH 5.7 cm (2.9 - 5.3) LA ISD 4CH W 4.6 cm (2.5 - 4.5) Name Value Normal Range LA ESV SP 4CH (A/L) 68 ml - LA ESV SP 2CH (A/L) 41 ml - LA ESV BP (A/L) 61 ml - LA ESV BP (A/L) index 31 ml/m2 - LA ESV SP 4CH (MOD) 62 ml - LA ESV SP 2CH (MOD) 39 ml - Name Value Normal Range MV E-wave Vmax 0.67 m/sec - MV deceleration time 153.18 msec - MV A-wave Vmax 0.52 m/sec - MV E:A ratio 1.29 ratio - LV septal e' Vmax 0.06 m/sec - LV lateral e' Vmax 0.1 m/sec - LV E:e' septal ratio 11.17 ratio - LV E:e' lateral ratio 6.7 ratio - Name Value Normal Range AV Vmax 1.2 m/sec - AV VTI 24.45 cm - AV peak gradient 5.62 mmHg - AV mean gradient 3.01 mmHg - LVOT diameter 2 cm - LVOT Vmax 0.98 m/sec - LVOT VTI 21.29 cm - LVOT peak gradient 3.85 mmHg - LVOT mean gradient 2.13 mmHg - MELISSA Vmax 0.49 m/sec - Name Value Normal Range TR Vmax 2.5 m/sec - TR peak gradient 25 mmHg - RAP 8 mmHg - RVSP 33 mmHg - IVC diameter 2.3 cm - Name Value Normal Range PV Vmax 0.84 m/sec - PV peak gradient 2.84 mmHg -
[2017-10-10] MEDS ORDERED: Buffered Lidocaine 0.9% SYRIN* 5 ML/SYR SYRINGE INTRADERM ONE (14:09)
[2017-10-10] MEDS: Acetaminophen TAB* 325 MG PO PRN (17:25)
[2017-10-10] MEDS: CMCS: Simvastatin TAB(NF) 20 MG TAB PO SCH ×2 (18:44→18:46)
--- NOTE | 2017-10-10 19:43 | PN ---
Subjective Date of Service: 10/10/17 Interval History: Patient seen and examined. Febrile, t-max 101 today. States pain is improved in toe, denies chest pain, no SOB, no n/v, has chills frequently. Seen by ortho, plan was for surgery in AM. Patient agreeable, however, reviewed ECHO, there is a vegetation on his aortic valve. Call out to ortho. Objective Active Medications: Acetaminophen (Tylenol Tab*) 650 mg PO Q6H PRN PRN Reason: FEVER/PAIN Last Admin: 10/10/17 17:25 Dose: 650 mg Aspirin (Aspirin Tab*) 325 mg PO BEDTIME [facility] Last Admin: 10/09/17 20:52 Dose: 325 mg Atenolol (Tenormin Tab*) 50 mg PO [facility]EDTIME [facility] Last Admin: 10/09/17 20:52 Dose: 50 mg Clopidogrel Bisulfate (Plavix Tab*) 75 mg PO 2100 [facility] Last Admin: 10/09/17 20:52 Dose: 75 mg Dextrose (D50w Syringe 50 Ml*) 12.5 gm IV PUSH .FOR FS < 60 - SS PRN PRN Reason: FS < 60 Gabapentin (Neurontin Cap(*)) 600 mg PO TID [facility] Last Admin: 10/10/17 15:18 Dose: 600 mg Metronidazole/Sodium Chloride (Flagyl 500 Mg Ivpb*) 500 mg in 100 mls @ 100 mls /hr IVPB Q8H [facility] Last Admin: 10/10/17 12:23 Dose: 100 mls/hr Cefepime HCl 2 gm/ Dextrose 50 mls @ 100 mls/hr IVPB Q12H [facility] Last Admin: 10/10/17 13:32 Dose: 100 mls/hr Lactated Ringer's (Lactated Ringers 1000 Ml Bag*) 1,000 mls @ 125 mls/hr IV PER RATE [facility] Insulin Human Lispro (Humalog*) 0 units SUBCUT ACHS [facility] PRN Reason: Protocol Last Admin: 10/10/17 17:37 Dose: 1 units Oxycodone/Acetaminophen (Percocet 5/325 Tab*) 1 tab PO Q6H PRN PRN Reason: PAIN Last Admin: 10/09/17 15:02 Dose: 1 tab Simvastatin (Zocor(Nf)) 40 mg PO QPM [facility] Last Admin: 10/10/17 18:46 Dose: 20 mg Vital Signs - 8 hr 10/10/17 10/10/17 10/10/17 12:43 15:07 15:18 Temperature 99.2 F Pulse Rate 73 Respiratory 15 16 16 Rate Blood Pressure 128/63 (mmHg) O2 Sat by Pulse 98 Oximetry 10/10/17 10/10/17 10/10/17 15:19 17:23 17:31 Temperature 101.2 F Pulse Rate Respiratory 16 16 Rate Blood Pressure (mmHg) O2 Sat by Pulse Oximetry Oxygen Devices in Use Now: None Appearance: Alert, NAD, resting comfortably Eyes: No Scleral Icterus, PERRLA Ears/Nose/Mouth/Throat: Mucous Membranes Moist Neck: NL Appearance and Movements; NL JVP, Trachea Midline Respiratory: Symmetrical Chest Expansion and Respiratory Effort, Clear to Auscultation Cardiovascular: NL Sounds; No Murmurs; No JVD, RRR Abdominal: NL Sounds; No Tenderness; No Distention Extremities: No Edema, No Clubbing, Cyanosis Skin: - - wound to left great toe dressed Neurological: Alert and Oriented x 3, NL Gait, - - poor historian Nutrition: Taking PO's Result Diagrams: 10/10/17 05:58 10/10/17 05:58 Additional Lab and Data: Lab Results 10/08/17 10/08/17 10/08/17 Range/Units 18:20 18:20 18:20 WBC 14.9 H (3.5-10.8) 10^3/ul RBC 4.50 (4.0-5.4) 10^6/ul Hgb 13.9 L (14.0-18.0) g/dl Hct 40 L (42-52) % MCV 89 (80-94) fL MCH 31 (27-31) pg MCHC 35 (31-36) g/dl RDW 14 (10.5-15) % Plt Count 198 (150-450) 10^3/ul MPV 8 (7.4-10.4) um3 Neut % (Auto) 80.1 (38-83) % Lymph % (Auto) 11.2 L (25-47) % [place] % (Auto) 8.3 (1-9) % Eos % (Auto) 0.1 (0-6) % Baso % (Auto) 0.3 (0-2) % Absolute Neuts (auto) 11.9 H (1.5-7.7) 10^3/ul Absolute Lymphs (auto) 1.7 (1.0-4.8) 10^3/ul Absolute Monos (auto) 1.2 H (0-0.8) 10^3/ul Absolute Eos (auto) 0 (0-0.6) 10^3/ul Absolute Basos (auto) 0 (0-0.2) 10^3/ul Absolute Nucleated RBC 0 10^3/ul Nucleated RBC % 0 ESR Pending INR (Anticoag Therapy) (0.77-1.02) Sodium 133 (133-145) mmol/L Potassium 4.1 (3.5-5.0) mmol/L Chloride 95 L (101-111) mmol/L Carbon Dioxide 28 (22-32) mmol/L Anion Gap 10 (2-11) mmol/L BUN 18 (6-24) mg/dL Creatinine 1.00 (0.67-1.17) mg/dL Est GFR ( Amer) 95.0 (>60) Est GFR (Non-Af Amer) 73.9 (>60) BUN/Creatinine Ratio 18.0 (8-20) Glucose 191 H (70-100) mg/dL Lactic Acid 2.9 H* (0.5-2.0) mmol/L Calcium 9.8 (8.6-10.3) mg/dL Total Bilirubin 0.60 (0.2-1.0) mg/dL AST 8 L (13-39) U/L ALT 12 (7-52) U/L Alkaline Phosphatase 58 (34-104) U/L C-Reactive Protein 148.61 H (< 5.00) mg/L Total Protein 7.2 (6.4-8.9) g/dL Albumin 4.1 (3.2-5.2) g/dL Globulin 3.1 (2-4) g/dL Albumin/Globulin Ratio 1.3 (1-3) 10/08/17 Range/Units 18:20 WBC (3.5-10.8) 10^3/ul RBC (4.0-5.4) 10^6/ul Hgb (14.0-18.0) g/dl Hct (42-52) % MCV (80-94) fL MCH (27-31) pg MCHC (31-36) g/dl RDW (10.5-15) % Plt Count (150-450) 10^3/ul MPV (7.4-10.4) um3 Neut % (Auto) (38-83) % Lymph % (Auto) (25-47) % [place] % (Auto) (1-9) % Eos % (Auto) (0-6) % Baso % (Auto) (0-2) % Absolute Neuts (auto) (1.5-7.7) 10^3/ul Absolute Lymphs (auto) (1.0-4.8) 10^3/ul Absolute Monos (auto) (0-0.8) 10^3/ul Absolute Eos (auto) (0-0.6) 10^3/ul Absolute Basos (auto) (0-0.2) 10^3/ul Absolute Nucleated RBC 10^3/ul Nucleated RBC % ESR INR (Anticoag Therapy) 1.02 (0.77-1.02) Sodium (133-145) mmol/L Potassium (3.5-5.0) mmol/L Chloride (101-111) mmol/L Carbon Dioxide (22-32) mmol/L Anion Gap (2-11) mmol/L BUN (6-24) mg/dL Creatinine (0.67-1.17) mg/dL Est GFR ( Amer) (>60) Est GFR (Non-Af Amer) (>60) BUN/Creatinine Ratio (8-20) Glucose (70-100) mg/dL Lactic Acid (0.5-2.0) mmol/L Calcium (8.6-10.3) mg/dL Total Bilirubin (0.2-1.0) mg/dL AST (13-39) U/L ALT (7-52) U/L Alkaline Phosphatase (34-104) U/L C-Reactive Protein (< 5.00) mg/L Total Protein (6.4-8.9) g/dL Albumin (3.2-5.2) g/dL Globulin (2-4) g/dL Albumin/Globulin Ratio (1-3) Microbiology and Other Data: Microbiology 10/09/17 00:30 Nasal Screen MRSA (PCR)(JACKELIN) - Final Nasal Mrsa Negative Microbiology 10/08/17 18:25 Aerobic Blood Culture - Preliminary Blood Venous Strep Agalactiae - (Group B) Staphylococcus Aureus Anaerobic Blood Culture - Preliminary Strep Agalactiae - (Group B) Staphylococcus Aureus 10/08/17 18:20 Aerobic Blood Culture - Preliminary Blood Venous Strep Agalactiae - (Group B) Staphylococcus Aureus Anaerobic Blood Culture - Preliminary Strep Agalactiae - (Group B) Staphylococcus Aureus Diagnostic Imaging: Patient: ZORA GASPAR [facility] Rec#: [id number] : 1945 Date: 10/10/2017 Age: 72y Height: 175.26 cm / 69.0 in Weight: 78.93 kg / 174.0 lbs Sex: M BSA: 1.95 Room#: 341-2 Admit Date#: 10/08/2017 Type: Inpatient Referring: Jluis Zepeda MD Reading: Kenya Jiang MD Micro Paleontologist: Ifrah Hamilton RDCS CC: Jose F Gupta MD Transthoracic Echocardiogram Indication: Bacteremia, + BC BP: 139/79 HR: 65 Rhythm: NSR Findings History: DMII, HTN, HLD, + BS strep Agalactiae. Technical Comments: The study quality is fair. Completed at 0935. Left Ventricle: The left ventricular chamber size is normal. Mild concentric left ventricular hypertrophy is observed. There is normal left ventricular systolic function. The estimated ejection fraction is 60-65%. There is no consistent Doppler evidence of clinically significant diastolic dysfunction. Left Atrium: The left atrium is mildly dilated. Right Ventricle: Moderator Band present. The right ventricle is mildly dilated. Near the apex is an area of relative hypokinesis on the free wall, hinge point seen. The right ventricular global systolic function is low normal. Right Atrium: The right atrium is moderately dilated. Aortic Valve: The aortic valve is trileaflet. There is mild thickening of the non coronary cusp.Lambl'e exressence noted. There is a trace of aortic regurgitation. There is no evidence of aortic stenosis. A mass is visualized on the aortic valve which appears consistent with a vegetation.image 7, posterior leaflet, narrow mobile structure flipping to both sides of the leaflet. Mitral Valve: There is posterior mitral annular calcification. The mitral valve leaflets are mildly thickened. There is a trace of mitral regurgitation. There is no evidence of mitral stenosis. No vegetation is observed on the mitral valve. Tricuspid Valve: The tricuspid valve leaflets are normal. There is mild tricuspid regurgitation. The right ventricular systolic pressure is estimated at 33 mmHg. No pulmonary hypertension is noted. There is no tricuspid stenosis. No vegetation is observed on the tricuspid valve. Pulmonic Valve: The pulmonic valve appears normal. There is a trace pulmonic regurgitation. There is no pulmonic stenosis. No vegetation is observed on the pulmonic valve. Pericardium: There is no significant pericardial effusion. Aorta: There is mild dilatation of the ascending aorta. There is no dilatation of the aortic arch. There is moderate dilatation of the aortic root. Pulmonary Artery: The main pulmonary artery appears normal. Venous: The inferior vena cava is dilated. There is an approximate 50% respiratory change in the inferior vena cava dimension. Conclusions Mild concentric left ventricular hypertrophy is observed. There is normal left ventricular systolic function. The estimated ejection fraction is 60-65%. The right ventricle is mildly dilated. Near the apex of the free wall of the RV is an area of relative hypokinesis, hinge point seen. There is mild thickening of the non coronary cusp of the trileaflet aortic valve. Lambl'e exressence noted posteriorly (0.1x0.4 cm). Aadditionaly, a mass is visualized on the aortic valve suggestive of a vegetation: image 7, posterior leaflet, narrow mobile structure flipping to both sides of the leaflet (0.3 x 0.6 cm). There is a trace of aortic regurgitation. The mitral valve leaflets are mildly thickened. There is a trace of mitral regurgitation. There is mild tricuspid regurgitation. There is a trace pulmonic regurgitation. Mild dilatation of the ascending aorta: 3.7 cm. No prior study to compare. Consider MARAH (transesophogeal echo) for follow up on aortic valve iif clinically appropriate. Measurements Name Value Normal Range RVIDd (AP) 2D 3.3 cm (0.9 - 2.6) RVDdMajor (2D) 4.5 cm (2.2 - 4.4) RAd ISD 4CH 5.8 cm (3.4 - 4.9) RA (A4C)W 3.9 cm (2.9 - 4.6) IVSd (2D) 1.1 cm (0.6 - 1) LVPWd (2D) 1.1 cm (0.6 - 1) LVIDd (2D) 4.5 cm (3.6 - 5.4) LVIDs (2D) 2.7 cm - LV FS (2D) 39 % (25 - 45) EF Teichholz (2D) 7 % - Aortic Annulus 2 cm (1.4 - 2.6) Ao root diameter (2D) 4.1 cm (2.1 - 3.5) Ascending Ao 3.7 cm (2.1 - 3.4) Aortic arch 2.7 cm (1.8 - 3.4) LA dimension (AP) 2D 4.6 cm (2.3 - 3.8) LAd ISD 4CH 5.7 cm (2.9 - 5.3) LA ISD 4CH W 4.6 cm (2.5 - 4.5) Name Value Normal Range LA ESV SP 4CH (A/L) 68 ml - LA ESV SP 2CH (A/L) 41 ml - LA ESV BP (A/L) 61 ml - LA ESV BP (A/L) index 31 ml/m2 - LA ESV SP 4CH (MOD) 62 ml - LA ESV SP 2CH (MOD) 39 ml - Name Value Normal Range MV E-wave Vmax 0.67 m/sec - MV deceleration time 153.18 msec - MV A-wave Vmax 0.52 m/sec - MV E:A ratio 1.29 ratio - LV septal e' Vmax 0.06 m/sec - LV lateral e' Vmax 0.1 m/sec - LV E:e' septal ratio 11.17 ratio - Patient Name: ZORA GASPAR Medical Record#: [id number] Ordering Physician: Britany Grant NP Acct.#: [id number] : 1945 Age: 72 Sex: M Location: SURGICAL STAY UNIT Exam Date: 10/09/17 0750 ADM Status: ADM IN Order Information: MRI LOWER EXTREMITY LEFT W/O Accession Number: [id number] CPT: 05296 Indication: Ulcer at the LEFT great toe. Assess for osteomyelitis Comparison: October 08, 2017 radiographs. May 03, 2016 3 phase bone scan Technique: [facility] [place] 1.5 Farzana [id number] with GEM suite. Noncontrast MRI LEFT foot from the level of the transverse tarsal joint through the toes. Report: Diffuse bone marrow edema at the first distal phalanx with osseous erosion at the tuft and partial loss of normal T1 marrow hyperintensity throughout. Small interphalangeal joint effusion. No additional suspicious bone marrow signal change within the [id number]. Negative for fracture. Diffuse subcutaneous tissue plane and skeletal muscle edema without evidence for a loculated soft tissue abscess collection. IMPRESSION: The constellation of findings is consistent with osteomyelitis at the first distal phalanx corresponding with the reported soft tissue ulcer. No loculated soft tissue plane abscess collection evident. <Electronically signed by Samson Ortiz MD in OV> 10/09/17 1602 Dictated By: Samson Ortiz MD Dictated Date/Time: 10/09/17 1602 Transcribed Date/Time: 10/09/17 1557 Copy to: CC:Jluis Zepeda MD; Britany Grant NP; Calin Tijerina MD; Jose F Gupta MD Imaging - [facility] Imaging - [facility] Imaging - [facility] [address] [address] ph [phone]) ph [phone]) ph ([phone]) 1 of 1 Assess/Plan/Problems-Billing Assessment: This is a 72 year old male patient with severe diabetic toe wound, neuropathy, HTN and HLP that now presents with osteomyelitis of the toe, strep bacteremia, vegetation of the aortic valve and fever. - Patient Problems (1) Acute osteomyelitis of toe of left foot Code(s): M86.172 - OTHER ACUTE OSTEOMYELITIS, LEFT ANKLE AND FOOT SNOMED Code( s): 879091389 Comment: - ID following - MRI as above - Ortho consult appreciated, surgery recommended, however, given vegetation on aortic valve leaflet, patient is NOT clear for surgery tomorrow, Will order MARAH to evaluate valve and EKG - Local wound care - Follow cultures - Follow temps and WBCs - SQE=231, LA=1.5 (2) Diabetes mellitus Code(s): E11.9 - TYPE 2 DIABETES MELLITUS WITHOUT COMPLICATIONS SNOMED Code(s) : 31357886 Comment: - Lispro SS with BG AC and HS (3) Diabetic neuropathy Code(s): E11.40 - TYPE 2 DIABETES MELLITUS WITH DIABETIC NEUROPATHY, UNSP SNOMED Code(s): 326017624 Comment: - Maintained on gabapentin - Percocet PRN (4) Hypertension Code(s): I10 - ESSENTIAL (PRIMARY) HYPERTENSION SNOMED Code(s): 30977085 Comment: - Stable on atenolol (5) Hyperlipidemia Code(s): E78.5 - HYPERLIPIDEMIA, UNSPECIFIED SNOMED Code(s): 37546293 Comment: - may use simvastatin from home (6) History of coronary artery disease Code(s): Z86.79 - PERSONAL HISTORY OF OTHER DISEASES OF THE CIRCULATORY SYSTEM SNOMED Code(s): 046794735 Comment: - States cardiac stents in the past with negative lexiscans since - Will order EKG - May nee stress test in light of infected aortic valve (7) Aortic valve vegetation Code(s): I33.0 - ACUTE AND SUBACUTE INFECTIVE ENDOCARDITIS SNOMED Code(s): 187932009 Comment: - Not clear for surgery - Follow up transesophageal echo and EKG Status and Disposition: Call out to ortho and ID. Cannot proceed with surgery tomorrow. Nursing staff aware. Counseling and/or Coordination of Care Minutes: coordinated with staff
[2017-10-10] MEDS: Atenolol TAB* 50 MG PO SCH (21:25)
[2017-10-10] MEDS: Clopidogrel TAB* 75 MG PO SCH (21:25)
[2017-10-10] MEDS: Aspirin TAB* 325 MG PO SCH (21:25)
[2017-10-11] MEDS: Cefepime(*) 2 GM in D5W 50 ML BAG* 50 ML IVPB SCH (00:15)
[2017-10-11] MEDS: metroNIDAZOLE IV 500 MG/100ML* 500 MG/100 ML BAG IVPB SCH (03:37)
[2017-10-11 05:40] LABS: ABS Basophils 0 10^3/ul (0-0.2); ABS Eosinophils 0.2 10^3/ul (0-0.6); ABS Lymphocytes 1.7 10^3/ul (1.0-4.8); ABS Monocytes 0.7 10^3/ul (0-0.8); ABS Neutrophils 3.1 10^3/ul (1.5-7.7); ABS Nucleated RBC 0 10^3/ul; Eosinophil % 2.9 % (0-6); Hematocrit 34 % (42-52); Hemoglobin 11.7 g/dl (14.0-18.0); Lymphocyte % 29.9 % (25-47); Mean Corpuscular HGB Conc 34 g/dl (31-36); Mean Corpuscular Hemoglobin 30 pg (27-31); Mean Corpuscular Volume 88 fL (80-94); Mean Platelet Volume 8 um3 (7.4-10.4); Nucleated Red Blood Cells % 0; Platelet Count 152 10^3/ul (150-450); Red Blood Count 3.88 10^6/ul (4.0-5.4); Red Cell Distribution Width 14 % (10.5-15); White Blood Count 5.8 10^3/ul (3.5-10.8)
[2017-10-11 05:59] LABS: EGFR Non-African American 90.3 (>60)
[2017-10-11] MEDS: Gabapentin CAP(*) 300 MG PO SCH ×3 (08:05→20:50)
--- NOTE | 2017-10-11 08:40 | PN ---
Subjective Date of Service: 10/11/17 Interval History: Patient seen and examined. Fevers improved overnight. Discussed results of TTE this morning with patient. Reviewed EKG. Patient states pain is tolerable. Still having chills. Denies chest pain, no SOB, no n/v, no diarrhea. Objective Active Medications: Acetaminophen (Tylenol Tab*) 650 mg PO Q6H PRN PRN Reason: FEVER/PAIN Last Admin: 10/10/17 17:25 Dose: 650 mg Aspirin (Aspirin Tab*) 325 mg PO BEDTIME [facility] Last Admin: 10/10/17 21:25 Dose: 325 mg Atenolol (Tenormin Tab*) 50 mg PO BEDTIME [facility] Last Admin: 10/10/17 21:25 Dose: 50 mg Clopidogrel Bisulfate (Plavix Tab*) 75 mg PO 2100 [facility] Last Admin: 10/10/17 21:25 Dose: 75 mg Dextrose (D50w Syringe 50 Ml*) 12.5 gm IV PUSH .FOR FS < 60 - SS PRN PRN Reason: FS < 60 Gabapentin (Neurontin Cap(*)) 600 mg PO TID [facility] Last Admin: 10/11/17 08:05 Dose: Not Given Metronidazole/Sodium Chloride (Flagyl 500 Mg Ivpb*) 500 mg in 100 mls @ 100 mls /hr IVPB Q8H [facility] Last Admin: 10/11/17 03:37 Dose: 100 mls/hr Lactated Ringer's (Lactated Ringers 1000 Ml Bag*) 1,000 mls @ 125 mls/hr IV PER RATE [facility] Last Admin: 10/11/17 00:29 Dose: 125 mls/hr Cefazolin Sodium/Dextrose (Kefzol 2 Gm Premix(*)) 2 gm in 50 mls @ 100 mls/hr IVPB Q8H [facility] Insulin Human Lispro (Humalog*) 0 units SUBCUT ACHS [facility] PRN Reason: Protocol Last Admin: 10/10/17 21:27 Dose: Not Given Oxycodone/Acetaminophen (Percocet 5/325 Tab*) 1 tab PO Q6H PRN PRN Reason: PAIN Last Admin: 10/09/17 15:02 Dose: 1 tab Simvastatin (Zocor(Nf)) 40 mg PO QPM [facility] Last Admin: 10/10/17 18:46 Dose: 20 mg Vital Signs - 8 hr 10/11/17 03:30 Temperature 98.1 F Pulse Rate 60 Respiratory 19 Rate Blood Pressure 110/50 (mmHg) O2 Sat by Pulse 95 Oximetry Oxygen Devices in Use Now: None Appearance: Alert, resting comfortably Eyes: No Scleral Icterus Ears/Nose/Mouth/Throat: NL Teeth, Lips, Gums, Mucous Membranes Moist Neck: NL Appearance and Movements; NL JVP, Trachea Midline Respiratory: Symmetrical Chest Expansion and Respiratory Effort, Clear to Auscultation Cardiovascular: NL Sounds; No Murmurs; No JVD, RRR Abdominal: NL Sounds; No Tenderness; No Distention Extremities: No Edema, No Clubbing, Cyanosis Skin: - - left great toe dressing CDI Neurological: NL Gait Nutrition: Taking PO's Result Diagrams: 10/11/17 05:05 10/11/17 05:05 Additional Lab and Data: Lab Results 10/08/17 10/08/17 10/08/17 Range/Units 18:20 18:20 18:20 WBC 14.9 H (3.5-10.8) 10^3/ul RBC 4.50 (4.0-5.4) 10^6/ul Hgb 13.9 L (14.0-18.0) g/dl Hct 40 L (42-52) % MCV 89 (80-94) fL MCH 31 (27-31) pg MCHC 35 (31-36) g/dl RDW 14 (10.5-15) % Plt Count 198 (150-450) 10^3/ul MPV 8 (7.4-10.4) um3 Neut % (Auto) 80.1 (38-83) % Lymph % (Auto) 11.2 L (25-47) % Hudson % (Auto) 8.3 (1-9) % Eos % (Auto) 0.1 (0-6) % Baso % (Auto) 0.3 (0-2) % Absolute Neuts (auto) 11.9 H (1.5-7.7) 10^3/ul Absolute Lymphs (auto) 1.7 (1.0-4.8) 10^3/ul Absolute Monos (auto) 1.2 H (0-0.8) 10^3/ul Absolute Eos (auto) 0 (0-0.6) 10^3/ul Absolute Basos (auto) 0 (0-0.2) 10^3/ul Absolute Nucleated RBC 0 10^3/ul Nucleated RBC % 0 ESR Pending INR (Anticoag Therapy) (0.77-1.02) Sodium 133 (133-145) mmol/L Potassium 4.1 (3.5-5.0) mmol/L Chloride 95 L (101-111) mmol/L Carbon Dioxide 28 (22-32) mmol/L Anion Gap 10 (2-11) mmol/L BUN 18 (6-24) mg/dL Creatinine 1.00 (0.67-1.17) mg/dL Est GFR ( Amer) 95.0 (>60) Est GFR (Non-Af Amer) 73.9 (>60) BUN/Creatinine Ratio 18.0 (8-20) Glucose 191 H (70-100) mg/dL Lactic Acid 2.9 H* (0.5-2.0) mmol/L Calcium 9.8 (8.6-10.3) mg/dL Total Bilirubin 0.60 (0.2-1.0) mg/dL AST 8 L (13-39) U/L ALT 12 (7-52) U/L Alkaline Phosphatase 58 (34-104) U/L C-Reactive Protein 148.61 H (< 5.00) mg/L Total Protein 7.2 (6.4-8.9) g/dL Albumin 4.1 (3.2-5.2) g/dL Globulin 3.1 (2-4) g/dL Albumin/Globulin Ratio 1.3 (1-3) 10/08/17 Range/Units 18:20 WBC (3.5-10.8) 10^3/ul RBC (4.0-5.4) 10^6/ul Hgb (14.0-18.0) g/dl Hct (42-52) % MCV (80-94) fL MCH (27-31) pg MCHC (31-36) g/dl RDW (10.5-15) % Plt Count (150-450) 10^3/ul MPV (7.4-10.4) um3 Neut % (Auto) (38-83) % Lymph % (Auto) (25-47) % Hudson % (Auto) (1-9) % Eos % (Auto) (0-6) % Baso % (Auto) (0-2) % Absolute Neuts (auto) (1.5-7.7) 10^3/ul Absolute Lymphs (auto) (1.0-4.8) 10^3/ul Absolute Monos (auto) (0-0.8) 10^3/ul Absolute Eos (auto) (0-0.6) 10^3/ul Absolute Basos (auto) (0-0.2) 10^3/ul Absolute Nucleated RBC 10^3/ul Nucleated RBC % ESR INR (Anticoag Therapy) 1.02 (0.77-1.02) Sodium (133-145) mmol/L Potassium (3.5-5.0) mmol/L Chloride (101-111) mmol/L Carbon Dioxide (22-32) mmol/L Anion Gap (2-11) mmol/L BUN (6-24) mg/dL Creatinine (0.67-1.17) mg/dL Est GFR ( Amer) (>60) Est GFR (Non-Af Amer) (>60) BUN/Creatinine Ratio (8-20) Glucose (70-100) mg/dL Lactic Acid (0.5-2.0) mmol/L Calcium (8.6-10.3) mg/dL Total Bilirubin (0.2-1.0) mg/dL AST (13-39) U/L ALT (7-52) U/L Alkaline Phosphatase (34-104) U/L C-Reactive Protein (< 5.00) mg/L Total Protein (6.4-8.9) g/dL Albumin (3.2-5.2) g/dL Globulin (2-4) g/dL Albumin/Globulin Ratio (1-3) Microbiology and Other Data: Microbiology 10/09/17 00:30 Nasal Screen MRSA (PCR)(JACKELIN) - Final Nasal Mrsa Negative Microbiology 10/08/17 18:25 Aerobic Blood Culture - Preliminary Blood Venous Strep Agalactiae - (Group B) Staphylococcus Aureus Anaerobic Blood Culture - Preliminary Strep Agalactiae - (Group B) Staphylococcus Aureus 10/08/17 18:20 Aerobic Blood Culture - Preliminary Blood Venous Strep Agalactiae - (Group B) Staphylococcus Aureus Anaerobic Blood Culture - Preliminary Strep Agalactiae - (Group B) Staphylococcus Aureus Diagnostic Imaging: Patient: ZORA GASPAR [facility] Rec#: [id number] : 1945 Date: 10/10/2017 Age: 72y Height: 175.26 cm / 69.0 in Weight: 78.93 kg / 174.0 lbs Sex: M BSA: 1.95 Room#: [facility] Admit Date#: 10/08/2017 Type: Inpatient Referring: Jluis Zepeda MD Reading: Kenya Jiang MD Windsurfing Instructor: Ifrah Hamilton RDCS CC: Jose F Gupta MD Transthoracic Echocardiogram Indication: Bacteremia, + BC BP: 139/79 HR: 65 Rhythm: NSR Findings History: DMII, HTN, HLD, + BS strep Agalactiae. Technical Comments: The study quality is fair. Completed at 0935. Left Ventricle: The left ventricular chamber size is normal. Mild concentric left ventricular hypertrophy is observed. There is normal left ventricular systolic function. The estimated ejection fraction is 60-65%. There is no consistent Doppler evidence of clinically significant diastolic dysfunction. Left Atrium: The left atrium is mildly dilated. Right Ventricle: Moderator Band present. The right ventricle is mildly dilated. Near the apex is an area of relative hypokinesis on the free wall, hinge point seen. The right ventricular global systolic function is low normal. Right Atrium: The right atrium is moderately dilated. Aortic Valve: The aortic valve is trileaflet. There is mild thickening of the non coronary cusp.Lambl'e exressence noted. There is a trace of aortic regurgitation. There is no evidence of aortic stenosis. A mass is visualized on the aortic valve which appears consistent with a vegetation.image 7, posterior leaflet, narrow mobile structure flipping to both sides of the leaflet. Mitral Valve: There is posterior mitral annular calcification. The mitral valve leaflets are mildly thickened. There is a trace of mitral regurgitation. There is no evidence of mitral stenosis. No vegetation is observed on the mitral valve. Tricuspid Valve: The tricuspid valve leaflets are normal. There is mild tricuspid regurgitation. The right ventricular systolic pressure is estimated at 33 mmHg. No pulmonary hypertension is noted. There is no tricuspid stenosis. No vegetation is observed on the tricuspid valve. Pulmonic Valve: The pulmonic valve appears normal. There is a trace pulmonic regurgitation. There is no pulmonic stenosis. No vegetation is observed on the pulmonic valve. Pericardium: There is no significant pericardial effusion. Aorta: There is mild dilatation of the ascending aorta. There is no dilatation of the aortic arch. There is moderate dilatation of the aortic root. Pulmonary Artery: The main pulmonary artery appears normal. Venous: The inferior vena cava is dilated. There is an approximate 50% respiratory change in the inferior vena cava dimension. Conclusions Mild concentric left ventricular hypertrophy is observed. There is normal left ventricular systolic function. The estimated ejection fraction is 60-65%. The right ventricle is mildly dilated. Near the apex of the free wall of the RV is an area of relative hypokinesis, hinge point seen. There is mild thickening of the non coronary cusp of the trileaflet aortic valve. Lambl'e exressence noted posteriorly (0.1x0.4 cm). Aadditionaly, a mass is visualized on the aortic valve suggestive of a vegetation: image 7, posterior leaflet, narrow mobile structure flipping to both sides of the leaflet (0.3 x 0.6 cm). There is a trace of aortic regurgitation. The mitral valve leaflets are mildly thickened. There is a trace of mitral regurgitation. There is mild tricuspid regurgitation. There is a trace pulmonic regurgitation. Mild dilatation of the ascending aorta: 3.7 cm. No prior study to compare. Consider MARAH (transesophogeal echo) for follow up on aortic valve iif clinically appropriate. Measurements Name Value Normal Range RVIDd (AP) 2D 3.3 cm (0.9 - 2.6) RVDdMajor (2D) 4.5 cm (2.2 - 4.4) RAd ISD 4CH 5.8 cm (3.4 - 4.9) RA (A4C)W 3.9 cm (2.9 - 4.6) IVSd (2D) 1.1 cm (0.6 - 1) LVPWd (2D) 1.1 cm (0.6 - 1) LVIDd (2D) 4.5 cm (3.6 - 5.4) LVIDs (2D) 2.7 cm - LV FS (2D) 39 % (25 - 45) EF Teichholz (2D) 7 % - Aortic Annulus 2 cm (1.4 - 2.6) Ao root diameter (2D) 4.1 cm (2.1 - 3.5) Ascending Ao 3.7 cm (2.1 - 3.4) Aortic arch 2.7 cm (1.8 - 3.4) LA dimension (AP) 2D 4.6 cm (2.3 - 3.8) LAd ISD 4CH 5.7 cm (2.9 - 5.3) LA ISD 4CH W 4.6 cm (2.5 - 4.5) Name Value Normal Range LA ESV SP 4CH (A/L) 68 ml - LA ESV SP 2CH (A/L) 41 ml - LA ESV BP (A/L) 61 ml - LA ESV BP (A/L) index 31 ml/m2 - LA ESV SP 4CH (MOD) 62 ml - LA ESV SP 2CH (MOD) 39 ml - Name Value Normal Range MV E-wave Vmax 0.67 m/sec - MV deceleration time 153.18 msec - MV A-wave Vmax 0.52 m/sec - MV E:A ratio 1.29 ratio - LV septal e' Vmax 0.06 m/sec - LV lateral e' Vmax 0.1 m/sec - LV E:e' septal ratio 11.17 ratio - Patient Name: ZORA GASPAR Medical Record#: [id number] Ordering Physician: Britany Grant NP Acct.#: [id number] : 1945 Age: 72 Sex: M Location: SURGICAL STAY UNIT Exam Date: 10/09/17 0750 ADM Status: ADM IN Order Information: MRI LOWER EXTREMITY LEFT W/O Accession Number: [id number] CPT: 57845 Indication: Ulcer at the LEFT great toe. Assess for osteomyelitis Comparison: October 08, 2017 radiographs. May 03, 2016 3 phase bone scan Technique: [employer] 1.5 Farzana [id number] with GEM suite. Noncontrast MRI LEFT foot from the level of the transverse tarsal joint through the toes. Report: Diffuse bone marrow edema at the first distal phalanx with osseous erosion at the tuft and partial loss of normal T1 marrow hyperintensity throughout. Small interphalangeal joint effusion. No additional suspicious bone marrow signal change within the [id number]. Negative for fracture. Diffuse subcutaneous tissue plane and skeletal muscle edema without evidence for a loculated soft tissue abscess collection. IMPRESSION: The constellation of findings is consistent with osteomyelitis at the first distal phalanx corresponding with the reported soft tissue ulcer. No loculated soft tissue plane abscess collection evident. <Electronically signed by Samson Ortiz MD in OV> 10/09/17 1602 Dictated By: Samson Ortiz MD Dictated Date/Time: 10/09/17 1602 Transcribed Date/Time: 10/09/17 1557 Copy to: CC:Jluis Zepeda MD; Britany Grant NP; Calin Tijerina MD; Jose F Gupta MD Imaging - [facility] - [facility] [address] [place] [address] ph [phone]) ph ([phone]) ph ([phone]) 1 of 1 EKG Data: EKG INTERPRETATION ECG Report Patient Name ZORA GASPAR Birthdate 1945 Sex M Order Number [id number] Date of ECG 10/10/2017 20:52 Interpretation Sinus rhythm.normal P axis, V-rate 60- 99 Borderline prolonged NE interval.NE >212, V-rate 50- 90 Inferior Q waves suggestive of possible old inferior VT> ischemia. - BORDERLINE ECG - Electronically signed on 10/10/2017 at 22:14 by Janina Bunch MD Please go to [email or web address] website to view the EKG image Assess/Plan/Problems-Billing Assessment: This is a 72 year old male patient with severe diabetic toe wound, neuropathy, HTN and HLP that now presents with osteomyelitis of the toe, strep bacteremia, vegetation of the aortic valve and fever. - Patient Problems (1) Acute osteomyelitis of toe of left foot Code(s): M86.172 - OTHER ACUTE OSTEOMYELITIS, LEFT ANKLE AND FOOT SNOMED Code( s): 830235034 Comment: - ID following - MRI as above - Ortho consult appreciated, surgery recommended, however, given vegetation on aortic valve leaflet, patient is NOT clear for surgery today. Discussed with Dr. Harding - Discussed MARAH with Dr. Zepeda, will defer - Lexiscan today for pre-op clearance, may be some lateral ischemia on EKG, place on tele, keep NPO - Plan for OR Sunday if cardiac clearance is acceptable - Will refer for PICC, will need 6 weeks atbx (2) Diabetes mellitus Code(s): E11.9 - TYPE 2 DIABETES MELLITUS WITHOUT COMPLICATIONS SNOMED Code(s) : 52953172 Comment: - Lispro SS with BG AC and HS (3) Diabetic neuropathy Code(s): E11.40 - TYPE 2 DIABETES MELLITUS WITH DIABETIC NEUROPATHY, UNSP SNOMED Code(s): 845919201 Comment: - Maintained on gabapentin - Percocet PRN (4) Hypertension Code(s): I10 - ESSENTIAL (PRIMARY) HYPERTENSION SNOMED Code(s): 75689321 Comment: - Stable on atenolol (5) Hyperlipidemia Code(s): E78.5 - HYPERLIPIDEMIA, UNSPECIFIED SNOMED Code(s): 70818374 Comment: - may use simvastatin from home (6) History of coronary artery disease Code(s): Z86.79 - PERSONAL HISTORY OF OTHER DISEASES OF THE CIRCULATORY SYSTEM SNOMED Code(s): 861432017 Comment: - States cardiac stents in the past with negative stress since but can't remember date of last stress test - EKG with old Q wave and possible lateral ischemia - Lexiscan today (7) Aortic valve vegetation Code(s): I33.0 - ACUTE AND SUBACUTE INFECTIVE ENDOCARDITIS SNOMED Code(s): 154617921 Comment: - Not clear for surgery today - Discussed with Dr. Zepeda and Dr. Harding - Continue antibiotics and follow cultures - May be able to go for surgery Sunday if cardiac clearance is obtained Status and Disposition: Remain inpatient. Referral for PICC, possible surgery Sunday. Counseling and/or Coordination of Care Minutes: coordinated with staff, ortho and ID
--- NOTE | 2017-10-11 09:09 | PN ---
Progress Note - Progress Note Date of Service: 10/11/17 SOAP: Subjective: CC: bacteremia HPI: 72 year old man with left great toe infection admitted with fever and foot swelling which is improving with antibiotics. Fever resolved, no rash or diarrhea. Objective: Vital Signs Temp 36.7 C 10/11/17 03:30 Pulse 60 10/11/17 03:30 Resp 19 10/11/17 03:30 BP 110/50 10/11/17 03:30 Pulse Ox 95 10/11/17 03:30 Intake & Output 10/10/17 10/11/17 10/11/17 18:59 06:59 18:59 Intake Total 360 510 Output Total 800 800 Balance -440 -290 Weight 174 lb Intake: IVPB 110 ABX - FLAGYL 110 Oral 360 400 Output: Urine 800 800 Gen:awake, no distress HEENT:MMM Heart:RRR no murmur Lungs:CTA BL Abd:+BS NTND soft Skin: no rash MSK: L great toe edema and distal eschar Laboratory Results - last 24 hr 10/10/17 10/10/17 10/10/17 11:59 17:16 21:21 WBC RBC Hgb Hct MCV MCH MCHC RDW Plt Count MPV Neut % (Auto) Lymph % (Auto) Daniels % (Auto) Eos % (Auto) Baso % (Auto) Absolute Neuts (auto) Absolute Lymphs (auto) Absolute Monos (auto) Absolute Eos (auto) Absolute Basos (auto) Absolute Nucleated RBC Nucleated RBC % Sodium Potassium Chloride Carbon Dioxide Anion Gap BUN Creatinine Est GFR ( Amer) Est GFR (Non-Af Amer) BUN/Creatinine Ratio Glucose POC Glucose (mg/dL) 221 H 178 H 125 H Calcium 10/11/17 10/11/17 10/11/17 03:26 05:05 05:05 WBC 5.8 RBC 3.88 L Hgb 11.7 L Hct 34 L MCV 88 MCH 30 MCHC 34 RDW 14 Plt Count 152 MPV 8 Neut % (Auto) 54.4 Lymph % (Auto) 29.9 Daniels % (Auto) 12.2 H Eos % (Auto) 2.9 Baso % (Auto) 0.6 Absolute Neuts (auto) 3.1 Absolute Lymphs (auto) 1.7 Absolute Monos (auto) 0.7 Absolute Eos (auto) 0.2 Absolute Basos (auto) 0 Absolute Nucleated RBC 0 Nucleated RBC % 0 Sodium 135 Potassium 3.9 Chloride 105 Carbon Dioxide 23 Anion Gap 7 BUN 17 Creatinine 0.84 Est GFR ( Amer) 116.2 Est GFR (Non-Af Amer) 90.3 BUN/Creatinine Ratio 20.2 H Glucose 162 H POC Glucose (mg/dL) 162 H Calcium 8.5 L 10/11/17 10/11/17 06:10 08:11 WBC RBC Hgb Hct MCV MCH MCHC RDW Plt Count MPV Neut % (Auto) Lymph % (Auto) Daniels % (Auto) Eos % (Auto) Baso % (Auto) Absolute Neuts (auto) Absolute Lymphs (auto) Absolute Monos (auto) Absolute Eos (auto) Absolute Basos (auto) Absolute Nucleated RBC Nucleated RBC % Sodium Potassium Chloride Carbon Dioxide Anion Gap BUN Creatinine Est GFR ( Amer) Est GFR (Non-Af Amer) BUN/Creatinine Ratio Glucose POC Glucose (mg/dL) 164 H 164 H Calcium Microbiology 10/08/17 18:25 Blood Venous Aerobic Blood Culture - Preliminary Strep Agalactiae - (Group B) Staphylococcus Aureus 10/08/17 18:25 Blood Venous Anaerobic Blood Culture - Preliminary Strep Agalactiae - (Group B) Staphylococcus Aureus 10/08/17 18:20 Blood Venous Aerobic Blood Culture - Preliminary Strep Agalactiae - (Group B) Staphylococcus Aureus 10/08/17 18:20 Blood Venous Anaerobic Blood Culture - Preliminary Strep Agalactiae - (Group B) Staphylococcus Aureus Assessment: 1. Grp B Strep and Staph bacteremia 2. Aortic valve infective endocarditis 3. left great toe chronic osteomyelitis, cellulitis, myositis 4. diabetes with neuropathy 5. CAD, hx PCI Plan: 1. recheck BC (ordered), change cefepime to ancef 2 gm IV Q8hrs, PICC, will plan on 6 weeks IV treatment 2. toe amp per orthopedics Discussed w JUMANA Grant and Dr Montero
[2017-10-11] MEDS: Insulin LISPRO* 1 UNITS UNIT SUBCUT SCH ×4 (10:35→20:47)
[2017-10-11] MEDS: ceFAZolin 2 GM PREMIX (*) 2 GM/50 ML BAG IVPB SCH ×2 (10:36→17:42)
[2017-10-11] MEDS ORDERED: Regadenoson* 0.4 MG/5 ML SYRINGE ONE (11:30)
--- NOTE | 2017-10-11 13:18 | RAD ---
HISTORY: Cardiac catheterization, diabetes, hypertension, hyperlipidemia, preoperative screening COMPARISONS: None TECHNIQUE: A 1 day stress/rest myocardial perfusion study was performed, with pharmacologic stress. The stress portion was monitored by Dr. Santoro. Gated SPECT imaging was performed, without CT-based attenuation correction secondary to body habitus DOSE: Stress: Technetium 99m tetrofosmin, 25.6 millicuries, injected at 11:51 AM on October 11, 2017 Rest: Technetium 99m tetrofosmin, 10.1 millicuries, injected at 10:27 AM on October 11, 2017 Pharmacologic agent: Lexiscan FINDINGS: CARDIAC MONITORING: No EKG criteria of ischemia with stress EF: 73% TID: 0.93 MOTION: Normal motion, with normal wall thickening. PERFUSION: There are no fixed or reversible perfusion defects. OTHER: None IMPRESSION: NO FIXED OR REVERSIBLE PERFUSION DEFECTS. ASSESSMENT: LOW RISK. Based on imaging criteria from ACC/AHA 2002. Guideline Update for the Management of Patient's with Chronic Stable Angina, table 23. Noninvasive Risk Stratification. CPT II Codes: 0429E1V
[2017-10-11] MEDS: CMCS: Simvastatin TAB(NF) 20 MG TAB PO SCH (17:43)
[2017-10-11] MEDS: oxyCODONE/Acetamin 5/325 MG* TAB PO PRN (17:52)
[2017-10-11] MEDS: Clopidogrel TAB* 75 MG PO SCH (20:51)
[2017-10-11] MEDS: Aspirin TAB* 325 MG PO SCH (20:51)
[2017-10-11] MEDS: Atenolol TAB* 50 MG PO SCH (20:51)
[2017-10-12] MEDS: oxyCODONE/Acetamin 5/325 MG* TAB PO PRN (00:34)
[2017-10-12] MEDS: ceFAZolin 2 GM PREMIX (*) 2 GM/50 ML BAG IVPB SCH ×3 (01:25→16:55)
[2017-10-12 05:55] LABS: ABS Basophils 0 10^3/ul (0-0.2); ABS Eosinophils 0.2 10^3/ul (0-0.6); ABS Monocytes 0.6 10^3/ul (0-0.8); ABS Nucleated RBC 0 10^3/ul; Eosinophil % 3.6 % (0-6); Hematocrit 31 % (42-52); Lymphocyte % 34.5 % (25-47); Mean Corpuscular HGB Conc 36 g/dl (31-36); Mean Corpuscular Hemoglobin 31 pg (27-31); Mean Corpuscular Volume 87 fL (80-94); Mean Platelet Volume 7 um3 (7.4-10.4); Nucleated Red Blood Cells % 0.1; Platelet Count 163 10^3/ul (150-450); Red Blood Count 3.55 10^6/ul (4.0-5.4); Red Cell Distribution Width 14 % (10.5-15); White Blood Count 5.8 10^3/ul (3.5-10.8)
[2017-10-12 06:13] LABS: EGFR Non-African American 95.6 (>60)
[2017-10-12] MEDS: Insulin LISPRO* 1 UNITS UNIT SUBCUT SCH ×4 (07:19→21:34)
[2017-10-12] MEDS: Gabapentin CAP(*) 300 MG PO SCH ×3 (08:18→21:07)
--- NOTE | 2017-10-12 08:33 | PN ---
Progress Note - Progress Note Date of Service: 10/12/17 SOAP: Subjective: 72 y/o male with L great toe osteomyelitis scheduled for amp 10/11, however cancelled due to endocarditis, tentatively rescheduled for 10/[address] Harding. Patient concerned about how much would be amputated, will discuss with operating surgeon. vss afebrile overnight. Objective: General- Resting in be comfortably, NAD family at bedside MSK- L great toe with dressing on, no LAD< erythema, SITLT to midfoot, decreased towrds toes, full toe ROM Vital Signs Temp 97.6 F 10/12/17 11:46 Pulse 61 10/12/17 11:46 Resp 18 10/12/17 13:31 BP 140/71 10/12/17 11:46 Pulse Ox 98 10/12/17 11:46 Intake & Output 10/11/17 10/12/17 10/12/17 18:59 06:59 18:59 Intake Total 2382 Output Total 600 0 Balance 1782 0 Weight 78.925 kg Intake: IV Fluids 2021 ABX - CEFAZOLIN 115 LR 1907 Oral 360 Output: Urine 600 0 Other: Estimated Void Medium # Voids 2 Assessment: Stable 72 y/o male with osteomyelitis L great toe Plan: - IV ABX per ID- [place] - NPO sunday night Acetaminophen (Tylenol Tab*) 650 mg PO Q6H PRN PRN Reason: FEVER/PAIN Last Admin: 10/10/17 17:25 Dose: 650 mg Aspirin (Aspirin Tab*) 325 mg PO BEDTIME [facility] Last Admin: 10/11/17 20:51 Dose: 325 mg Atenolol (Tenormin Tab*) 50 mg PO BEDTIME [facility] Last Admin: 10/11/17 20:51 Dose: 50 mg Clopidogrel Bisulfate (Plavix Tab*) 75 mg PO 2100 [facility] Last Admin: 10/11/17 20:51 Dose: 75 mg Dextrose (D50w Syringe 50 Ml*) 12.5 gm IV PUSH .FOR FS < 60 - SS PRN PRN Reason: FS < 60 Famotidine (Pepcid Iv*) 20 mg IV ONCE ONE Stop: 10/15/17 08:01 Gabapentin (Neurontin Cap(*)) 600 mg PO TID [facility] Last Admin: 01/19/18 13:31 Dose: 600 mg Lactated Ringer's (Lactated Ringers 1000 Ml Bag*) 1,000 mls @ 125 mls/hr IV PER RATE [facility] Last Admin: 10/12/17 04:26 Dose: 125 mls/hr Cefazolin Sodium/Dextrose (Kefzol 2 Gm Premix(*)) 2 gm in 50 mls @ 100 mls/hr IVPB Q8H [facility] Last Admin: 10/12/17 08:18 Dose: 100 mls/hr Insulin Human Lispro (Humalog*) 0 units SUBCUT ACHS [facility] PRN Reason: Protocol Last Admin: 10/12/17 13:21 Dose: 2 units Oxycodone/Acetaminophen (Percocet 5/325 Tab*) 1 tab PO Q6H PRN PRN Reason: PAIN Last Admin: 10/12/17 00:34 Dose: 1 tab Simvastatin (Zocor(Nf)) 40 mg PO QPM [facility] Last Admin: 10/11/17 17:43 Dose: 20 mg
[2017-10-12] MEDS: CMCS: Simvastatin TAB(NF) 20 MG TAB PO SCH (16:55)
--- NOTE | 2017-10-12 18:31 | PN ---
Subjective Date of Service: 10/12/17 Interval History: Mr. Mejia denies any acute complaint today. He has had some neuropathic pain to his feet but this is a chronic problem that is helped with gabapentin. Objective Active Medications: Acetaminophen (Tylenol Tab*) 650 mg PO Q6H PRN Aspirin (Aspirin Tab*) 325 mg PO BEDTIME [facility] Atenolol (Tenormin Tab*) 50 mg PO BEDTIME [facility] Clopidogrel Bisulfate (Plavix Tab*) 75 mg PO 2100 [facility] Dextrose (D50w Syringe 50 Ml*) 12.5 gm IV PUSH .FOR FS < 60 - SS PRN Famotidine (Pepcid Iv*) 20 mg IV ONCE ONE Gabapentin (Neurontin Cap(*)) 600 mg PO TID [facility] Lactated Ringer's (Lactated Ringers 1000 Ml Bag*) 1,000 mls @ 125 mls/hr IV PER RATE [facility] Cefazolin Sodium/Dextrose (Kefzol 2 Gm Premix(*)) 2 gm in 50 mls @ 100 mls/hr IVPB Q8H [facility] Insulin Human Lispro (Humalog*) 0 units SUBCUT ACHS [facility] Oxycodone/Acetaminophen (Percocet 5/325 Tab*) 1 tab PO Q6H PRN Simvastatin (Zocor(Nf)) 40 mg PO QPM [facility] Vital Signs: Temp Pulse Resp BP Pulse Ox 97.8 F 66 18 138/76 98 10/12/17 15:31 10/12/17 15:31 10/12/17 16:05 10/12/17 15:31 10/12/17 15:31 Oxygen Devices in Use Now: None Appearance: Male lying in bed in NAD Eyes: No Scleral Icterus Ears/Nose/Mouth/Throat: Mucous Membranes Moist Neck: Trachea Midline Respiratory: Symmetrical Chest Expansion and Respiratory Effort Cardiovascular: NL Sounds; No Murmurs; No JVD, No Edema Abdominal: NL Sounds; No Tenderness; No Distention, No Hepatosplenomegaly Extremities: No Edema Skin: - - Small dry ulceration to bottom of left great toe, toe has some mild erythema and edema Neurological: Alert and Oriented x 3, NL Muscle Strength and Tone Nutrition: Taking PO's Result Diagrams: 10/13/17 05:28 10/13/17 05:28 Additional Lab and Data: . Microbiology and Other Data: . Diagnostic Imaging: . EKG Data: . Assess/Plan/Problems-Billing Assessment: Mr. 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 - Patient Problems (1) Acute osteomyelitis of toe of left foot Comment: - MRI consistent with osteomyelitis. - Ortho and ID consults appreciated. Plan for cefazolin x 6 weeks, PICC placed. Surgery recommended, however, given vegetation on aortic valve leaflet plan for surgery Sunday. - Lexiscan today for pre-op clearance, low risk. (2) Aortic valve vegetation Comment: - Appreciate ID consult, plan for 6 weeks of cefazolin. - Cultures with group B strep. (3) Diabetes mellitus Current Visit: Yes Status: Acute Code(s): E11.9 - TYPE 2 DIABETES MELLITUS WITHOUT COMPLICATIONS SNOMED Code(s): 12755088 Comment: - BGs 160-250. - Continue lispro SS with BG AC and HS. (4) Diabetic neuropathy Comment: - Maintained on gabapentin - Percocet PRN (5) History of coronary artery disease Comment: - States cardiac stents in the past with negative stress since but can't remember date of last stress test. EKG with old Q wave and possible lateral ischemia - Lexiscan today was low risk. (6) Hyperlipidemia Comment: - Continue statin. (7) Hypertension Comment: - BP well controlled. - Continue atenolol (8) DVT prophylaxis Comment: - Heparin SQ. (9) Full code status Comment: Status and Disposition: Remain inpatient. Possible surgery Sunday.
[2017-10-12] MEDS: Aspirin TAB* 325 MG PO SCH (21:06)
[2017-10-12] MEDS: Atenolol TAB* 50 MG PO SCH (21:06)
[2017-10-12] MEDS: Clopidogrel TAB* 75 MG PO SCH (21:06)
[2017-10-12] MEDS: Potassium Citrate (NF) 10 MEQ TAB PO SCH (21:08)
[2017-10-12] MEDS: Heparin VIAL(*) 5000 UNITS/ML VIAL (FIVE THOUSAND) SUBCUT SCH (21:32)
[2017-10-13] MEDS: oxyCODONE/Acetamin 5/325 MG* TAB PO PRN ×2 (01:14→20:05)
[2017-10-13] MEDS: ceFAZolin 2 GM PREMIX (*) 2 GM/50 ML BAG IVPB SCH ×3 (01:15→17:20)
[2017-10-13 05:39] LABS: ABS Basophils 0.1 10^3/ul (0-0.2); ABS Eosinophils 0.3 10^3/ul (0-0.6); ABS Lymphocytes 2.6 10^3/ul (1.0-4.8); ABS Monocytes 0.6 10^3/ul (0-0.8); ABS Neutrophils 3.1 10^3/ul (1.5-7.7); ABS Nucleated RBC 0 10^3/ul; Eosinophil % 4.2 % (0-6); Hematocrit 34 % (42-52); Hemoglobin 11.8 g/dl (14.0-18.0); Lymphocyte % 39.1 % (25-47); Mean Corpuscular HGB Conc 35 g/dl (31-36); Mean Corpuscular Hemoglobin 30 pg (27-31); Mean Corpuscular Volume 86 fL (80-94); Mean Platelet Volume 7 um3 (7.4-10.4); Nucleated Red Blood Cells % 0.1; Platelet Count 184 10^3/ul (150-450); Red Cell Distribution Width 14 % (10.5-15); White Blood Count 6.6 10^3/ul (3.5-10.8)
[2017-10-13] MEDS: Heparin VIAL(*) 5000 UNITS/ML VIAL (FIVE THOUSAND) SUBCUT SCH ×3 (05:50→22:11)
[2017-10-13 05:54] LABS: EGFR Non-African American 94.2 (>60)
[2017-10-13] MEDS: Insulin LISPRO* 1 UNITS UNIT SUBCUT SCH ×4 (08:04→20:01)
[2017-10-13] MEDS: Potassium Citrate (NF) 10 MEQ TAB PO SCH (08:06)
[2017-10-13] MEDS: Gabapentin CAP(*) 300 MG PO SCH ×3 (08:42→20:05)
--- NOTE | 2017-10-13 09:18 | PN ---
Progress Note - Progress Note Date of Service: 10/13/17 SOAP: Subjective: Left great toe infection, doing ok. C/o neuropathic pain and mild increase in edema to foot. Denies CP/SOB. Objective: Vitals: Temp Pulse Resp BP Pulse Ox 97.5 F 57 16 125/60 96 10/13/17 03:55 10/13/17 03:55 10/13/17 08:42 10/13/17 03:55 10/13/17 03:55 Gen: A&O x3, NAD at rest LLE: Ulceration to tip of great toe, moderate erythema and edema to toe but not extending up into foot. Sensation to foot decreased due to neuropathy, DP 2+ Labs: Laboratory Results - last 24 hr 10/12/17 10/12/17 10/12/17 12:09 16:45 21:10 WBC RBC Hgb Hct MCV MCH MCHC RDW Plt Count MPV Neut % (Auto) Lymph % (Auto) [place] % (Auto) Eos % (Auto) Baso % (Auto) Absolute Neuts (auto) Absolute Lymphs (auto) Absolute Monos (auto) Absolute Eos (auto) Absolute Basos (auto) Absolute Nucleated RBC Nucleated RBC % Sodium Potassium Chloride Carbon Dioxide Anion Gap BUN Creatinine Est GFR ( Amer) Est GFR (Non-Af Amer) BUN/Creatinine Ratio Glucose POC Glucose (mg/dL) 250 H 172 H 192 H Calcium 10/13/17 10/13/17 10/13/17 05:28 05:28 07:25 WBC 6.6 RBC 3.90 L Hgb 11.8 L Hct 34 L MCV 86 MCH 30 MCHC 35 RDW 14 Plt Count 184 MPV 7 L Neut % (Auto) 46.7 Lymph % (Auto) 39.1 [place] % (Auto) 9.2 H Eos % (Auto) 4.2 Baso % (Auto) 0.8 Absolute Neuts (auto) 3.1 Absolute Lymphs (auto) 2.6 Absolute Monos (auto) 0.6 Absolute Eos (auto) 0.3 Absolute Basos (auto) 0.1 Absolute Nucleated RBC 0 Nucleated RBC % 0.1 Sodium 134 Potassium 4.1 Chloride 102 Carbon Dioxide 26 Anion Gap 6 BUN 15 Creatinine 0.81 Est GFR ( Amer) 121.2 Est GFR (Non-Af Amer) 94.2 BUN/Creatinine Ratio 18.5 Glucose 145 H POC Glucose (mg/dL) 147 H Calcium 8.7 Assessment: Left great toe ulcer with osteomyelitis Plan: Plan for OR 10/15/17, continue IV abx per ID NPO after MN 10/14/17
--- NOTE | 2017-10-13 11:18 | PN ---
Subjective Date of Service: 10/13/17 Interval History: Mr. Mejia reports having neuropathic burning feet pain last night again. He reports this is a chronic problem despite being on max dose gabapentin. He notes that it helps to get up and walk around. He is otherwise doing well. Objective Active Medications: Acetaminophen (Tylenol Tab*) 650 mg PO Q6H PRN Aspirin (Aspirin Tab*) 325 mg PO BEDTIME [facility] Atenolol (Tenormin Tab*) 50 mg PO BEDTIME [facility] Clopidogrel Bisulfate (Plavix Tab*) 75 mg PO 2100 [facility] Dextrose (D50w Syringe 50 Ml*) 12.5 gm IV PUSH .FOR FS < 60 - SS PRN Famotidine (Pepcid Iv*) 20 mg IV ONCE ONE Gabapentin (Neurontin Cap(*)) 600 mg PO TID [facility] Heparin Sodium (Porcine) (Heparin Vial(*)) 5,000 units SUBCUT Q8HR [facility] Lactated Ringer's (Lactated Ringers 1000 Ml Bag*) 1,000 mls @ 125 mls/hr IV PER RATE [facility] Cefazolin Sodium/Dextrose (Kefzol 2 Gm Premix(*)) 2 gm in 50 mls @ 100 mls/hr IVPB Q8H [facility] Insulin Human Lispro (Humalog*) 0 units SUBCUT ACHS [facility] Oxycodone/Acetaminophen (Percocet 5/325 Tab*) 1 tab PO Q6H PRN Potassium Citrate (Urocit-K 10 (Nf)) 20 meq PO BID [facility] Simvastatin (Zocor(Nf)) 40 mg PO QPM [facility] Vital Signs: Temp Pulse Resp BP Pulse Ox 98.2 F 59 16 122/63 96 10/13/17 07:58 10/13/17 07:58 10/13/17 08:42 10/13/17 07:58 10/13/17 07:58 Oxygen Devices in Use Now: None Appearance: Male sitting up in bed in NAD Eyes: No Scleral Icterus Ears/Nose/Mouth/Throat: Mucous Membranes Moist Neck: Trachea Midline Respiratory: Symmetrical Chest Expansion and Respiratory Effort, Clear to Auscultation Cardiovascular: NL Sounds; No Murmurs; No JVD, No Edema Abdominal: NL Sounds; No Tenderness; No Distention Lymphatic: No Cervical Adenopathy Extremities: No Edema Skin: - - Ulceration to plantar aspect of left great toe, no drainage Neurological: Alert and Oriented x 3, NL Muscle Strength and Tone Nutrition: Taking PO's Result Diagrams: 10/13/17 05:28 10/13/17 05:28 Additional Lab and Data: . Microbiology and Other Data: . Diagnostic Imaging: . EKG Data: . Assess/Plan/Problems-Billing Assessment: Mr. 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 - Patient Problems (1) Acute osteomyelitis of toe of left foot Comment: - MRI consistent with osteomyelitis. - Ortho and ID consults appreciated. Plan for cefazolin x 6 weeks, PICC placed. Surgery recommended, however, given vegetation on aortic valve leaflet plan for surgery Sunday. - Stress test 10/11/17 is low risk. With ID approval (given endocarditis) patient is appropriate for surgery, no further cardiac testing is indicated. (2) Aortic valve vegetation Comment: - Appreciate ID consult, plan for 6 weeks of cefazolin. - Cultures with group B strep and MSSA. (3) Diabetes mellitus Current Visit: Yes Status: Acute Code(s): E11.9 - TYPE 2 DIABETES MELLITUS WITHOUT COMPLICATIONS SNOMED Code(s): 54167261 Comment: - BGs 160-250. - Continue lispro SS with BG AC and HS. (4) Diabetic neuropathy Comment: - Persistent pain at night. - On max dose gabapentin. - Percocet PRN. (5) History of coronary artery disease Comment: - States cardiac stents in the past with negative stress since but can't remember date of last stress test. EKG with old Q wave and possible lateral ischemia. - Stress test on 10/11/17 is low risk without areas of reversible ischemia. (6) Hyperlipidemia Comment: - Continue statin. (7) Hypertension Comment: - BP well controlled. - Continue atenolol. (8) DVT prophylaxis Comment: - Heparin SQ. (9) Full code status Comment: Status and Disposition: Remain inpatient. Possible surgery Sunday.
[2017-10-13] MEDS: POTASSIUM CITRATE 10 MEQ PO SCH ×2 (11:53→17:47)
[2017-10-13] MEDS: CMCS: Simvastatin TAB(NF) 20 MG TAB PO SCH (17:20)
[2017-10-13] MEDS: Atenolol TAB* 50 MG PO SCH (20:04)
[2017-10-13] MEDS: Aspirin TAB* 325 MG PO SCH (20:05)
[2017-10-13] MEDS: Clopidogrel TAB* 75 MG PO SCH (20:05)
[2017-10-14] MEDS: ceFAZolin 2 GM PREMIX (*) 2 GM/50 ML BAG IVPB SCH ×3 (00:08→17:51)
[2017-10-14] MEDS: Heparin VIAL(*) 5000 UNITS/ML VIAL (FIVE THOUSAND) SUBCUT SCH ×3 (06:01→22:08)
[2017-10-14] MEDS: Gabapentin CAP(*) 300 MG PO SCH ×3 (08:31→20:50)
[2017-10-14] MEDS: Insulin LISPRO* 1 UNITS UNIT SUBCUT SCH ×4 (08:33→20:55)
[2017-10-14] MEDS: POTASSIUM CITRATE 10 MEQ PO SCH ×2 (08:36→17:50)
--- NOTE | 2017-10-14 08:56 | PN ---
Progress Note - Progress Note Date of Service: 10/14/17 SOAP: Subjective: Left great toe ulcer, no change in symptoms overnight. Denies CP/SOB, f/c Objective: Vitals: Temp Pulse Resp BP Pulse Ox 98.3 F 56 16 118/62 97 10/14/17 07:33 10/14/17 07:33 10/14/17 08:31 10/14/17 07:33 10/14/17 07:33 Gen: A&O x3, NAD at rest LLE: Dressing C/D/I. Mild edema to foot, no spread of erythema. Sensation decreased due to neuropathy, DP 2+ Assessment: Left great toe ulcer/osteomyelitis Plan: Left great toe amputation 10/15/17, NPO after MN tonight. Cont IV abx per ID
--- NOTE | 2017-10-14 11:33 | PN ---
Subjective Date of Service: 10/14/17 Interval History: Mr. Mejia states that he slept much better last night and had less neuropathic burning pain in his feet. He denies other complaint today. Objective Active Medications: Acetaminophen (Tylenol Tab*) 650 mg PO Q6H PRN Aspirin (Aspirin Tab*) 325 mg PO BEDTIME [facility] Atenolol (Tenormin Tab*) 50 mg PO BEDTIME [facility] Clopidogrel Bisulfate (Plavix Tab*) 75 mg PO 2100 [facility] Dextrose (D50w Syringe 50 Ml*) 12.5 gm IV PUSH .FOR FS < 60 - SS PRN Famotidine (Pepcid Iv*) 20 mg IV ONCE ONE Gabapentin (Neurontin Cap(*)) 600 mg PO TID [facility] Heparin Sodium (Porcine) (Heparin Vial(*)) 5,000 units SUBCUT Q8HR [facility] Lactated Ringer's (Lactated Ringers 1000 Ml Bag*) 1,000 mls @ 125 mls/hr IV PER RATE [facility] Cefazolin Sodium/Dextrose (Kefzol 2 Gm Premix(*)) 2 gm in 50 mls @ 100 mls/hr IVPB Q8H [facility] Insulin Human Lispro (Humalog*) 0 units SUBCUT ACHS [facility] Oxycodone/Acetaminophen (Percocet 5/325 Tab*) 1 tab PO Q6H PRN Potassium Citrate (Urocit-K 10 (Nf)) 20 meq PO 0900,1730 [facility] Simvastatin (Zocor(Nf)) 40 mg PO QPM [facility] Vital Signs: Temp Pulse Resp BP Pulse Ox 98.3 F 56 16 118/62 97 10/14/17 07:33 10/14/17 07:33 10/14/17 11:01 10/14/17 07:33 10/14/17 07:33 Oxygen Devices in Use Now: None Appearance: Male lying in bed in NAD Eyes: No Scleral Icterus Ears/Nose/Mouth/Throat: Mucous Membranes Moist Neck: Trachea Midline Respiratory: Symmetrical Chest Expansion and Respiratory Effort, Clear to Auscultation Cardiovascular: NL Sounds; No Murmurs; No JVD, No Edema Abdominal: NL Sounds; No Tenderness; No Distention Lymphatic: No Cervical Adenopathy Extremities: No Edema Neurological: Alert and Oriented x 3, NL Muscle Strength and Tone Nutrition: Taking PO's Result Diagrams: 10/13/17 05:28 10/13/17 05:28 Additional Lab and Data: . Microbiology and Other Data: . Diagnostic Imaging: . EKG Data: . Assess/Plan/Problems-Billing Assessment: Mr. 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 - Patient Problems (1) Acute osteomyelitis of toe of left foot Comment: - MRI consistent with osteomyelitis. - Ortho and ID consults appreciated. Plan for cefazolin x 6 weeks, PICC placed. - Stress test 10/11/17 is low risk. With ID approval (given endocarditis) patient is appropriate for surgery, no further cardiac testing is indicated. (2) Aortic valve vegetation Comment: - Appreciate ID consult, plan for 6 weeks of cefazolin. - Cultures with group B strep and MSSA. Repeat blood cultures are negative thus far. - PICC ordered. (3) Diabetes mellitus Current Visit: Yes Status: Acute Code(s): E11.9 - TYPE 2 DIABETES MELLITUS WITHOUT COMPLICATIONS SNOMED Code(s): 80797999 Comment: - BGs 160-250. - Continue lispro SS with BG AC and HS. (4) Diabetic neuropathy Comment: - Persistent pain at night. - On max dose gabapentin. - Percocet PRN. (5) History of coronary artery disease Comment: - States cardiac stents in the past with negative stress since but can't remember date of last stress test. EKG with old Q wave and possible lateral ischemia. - Stress test on 10/11/17 is low risk without areas of reversible ischemia. (6) Hyperlipidemia Comment: - Continue statin. (7) Hypertension Comment: - BP well controlled. - Continue atenolol. (8) DVT prophylaxis Comment: - Heparin SQ. (9) Full code status Comment: Status and Disposition: Remain inpatient. Plan for surgery Sunday.
[2017-10-14] MEDS: CMCS: Simvastatin TAB(NF) 20 MG TAB PO SCH (17:51)
[2017-10-14] MEDS: oxyCODONE/Acetamin 5/325 MG* TAB PO PRN (20:15)
[2017-10-14] MEDS: Clopidogrel TAB* 75 MG PO SCH (20:51)
[2017-10-14] MEDS: Aspirin TAB* 325 MG PO SCH (20:51)
[2017-10-14] MEDS: Atenolol TAB* 50 MG PO SCH (20:51)
[2017-10-14 20:54] LABS: EGFR Non-African American 81.3 (>60)
[2017-10-14] MEDS ORDERED: Magnesium Sulfate 2 GM IV* 2 GM/50 ML BAG IVPB ONE (22:46)
[2017-10-15] MEDS: ceFAZolin 2 GM PREMIX (*) 2 GM/50 ML BAG IVPB SCH ×3 (00:58→17:34)
[2017-10-15] MEDS ORDERED: Famotidine IV* 10 MG/ML 2 ML (20 mg) IV ONE (08:00)
[2017-10-15] MEDS: Gabapentin CAP(*) 300 MG PO SCH ×3 (08:12→20:46)
[2017-10-15] MEDS: Insulin LISPRO* 1 UNITS UNIT SUBCUT SCH ×4 (08:14→20:46)
[2017-10-15] MEDS: POTASSIUM CITRATE 10 MEQ PO SCH ×2 (08:15→18:07)
--- NOTE | 2017-10-15 12:48 | PN ---
Subjective Date of Service: 10/15/17 Interval History: Patient seen and examined. No acute overnight events. RN at bedside with doppler for pedal pulse eval on LLE, difficult to palpate. Able to obtain with doppler. PAtietn ready for OR today at 1330. Denies SOB, no chest pain, no n/v, no urinary complaints. States neuropathic pain in feet was tolerable overnight. Objective Active Medications: Acetaminophen (Tylenol Tab*) 650 mg PO Q6H PRN PRN Reason: FEVER/PAIN Last Admin: 10/10/17 17:25 Dose: 650 mg Aspirin (Aspirin Tab*) 325 mg PO BEDTIME [facility] Last Admin: 10/14/17 20:51 Dose: 325 mg Atenolol (Tenormin Tab*) 50 mg PO BEDTIME [facility] Last Admin: 10/14/17 20:51 Dose: 50 mg Clopidogrel Bisulfate (Plavix Tab*) 75 mg PO 2100 [facility] Last Admin: 10/14/17 20:51 Dose: 75 mg Dextrose (D50w Syringe 50 Ml*) 12.5 gm IV PUSH .FOR FS < 60 - SS PRN PRN Reason: FS < 60 Gabapentin (Neurontin Cap(*)) 600 mg PO TID [facility] Last Admin: 10/15/17 08:12 Dose: 600 mg Lactated Ringer's (Lactated Ringers 1000 Ml Bag*) 1,000 mls @ 125 mls/hr IV PER RATE [facility] Last Admin: 10/12/17 04:26 Dose: 125 mls/hr Cefazolin Sodium/Dextrose (Kefzol 2 Gm Premix(*)) 2 gm in 50 mls @ 100 mls/hr IVPB Q8H [facility] Last Admin: 10/15/17 08:14 Dose: 100 mls/hr Insulin Human Lispro (Humalog*) 0 units SUBCUT ACHS [facility] PRN Reason: Protocol Last Admin: 10/15/17 11:27 Dose: Not Given Oxycodone/Acetaminophen (Percocet 5/325 Tab*) 1 tab PO Q6H PRN PRN Reason: PAIN Last Admin: 10/14/17 20:15 Dose: 1 tab Potassium Citrate (Urocit-K 10 (Nf)) 20 meq PO 0900,1730 [facility] Last Admin: 10/15/17 08:15 Dose: Not Given Simvastatin (Zocor(Nf)) 40 mg PO QPM [facility] Last Admin: 10/14/17 17:51 Dose: 20 mg Vital Signs - 8 hr 10/15/17 10/15/17 10/15/17 07:25 08:12 08:17 Temperature 98.9 F Pulse Rate 72 Respiratory 16 16 16 Rate Blood Pressure 119/62 (mmHg) O2 Sat by Pulse 93 Oximetry 10/15/17 10:42 Temperature Pulse Rate Respiratory 16 Rate Blood Pressure (mmHg) O2 Sat by Pulse Oximetry Oxygen Devices in Use Now: None Appearance: Awake, NAD Eyes: No Scleral Icterus, PERRLA Ears/Nose/Mouth/Throat: NL Teeth, Lips, Gums, Mucous Membranes Moist Neck: NL Appearance and Movements; NL JVP, Trachea Midline Respiratory: Symmetrical Chest Expansion and Respiratory Effort, Clear to Auscultation Cardiovascular: NL Sounds; No Murmurs; No JVD, RRR Abdominal: NL Sounds; No Tenderness; No Distention Extremities: No Edema, No Clubbing, Cyanosis Skin: - - left toe wound dressing CDI Neurological: Alert and Oriented x 3, NL Gait Nutrition: - - NPO for procedure Result Diagrams: 10/13/17 05:28 10/14/17 20:19 Additional Lab and Data: . Microbiology and Other Data: . Diagnostic Imaging: .Patient Name: ZORA GASPAR Medical Record#: [id number] Ordering Physician: Britany Grant NP Acct.#: [id number] : 1945 Age: 72 Sex: M Location: SURGICAL STAY UNIT Exam Date: 10/11/17840 ADM Status: ADM IN Order Information: NUCLEAR CARDIAC STRESS TEST Accession Number: [id number] CPT: 97706 HISTORY: Cardiac catheterization, diabetes, hypertension, hyperlipidemia, preoperative screening COMPARISONS: None TECHNIQUE: A 1 day stress/rest myocardial perfusion study was performed, with pharmacologic stress. The stress portion was monitored by Dr. Santoro. Gated SPECT imaging was performed, without CT-based attenuation correction secondary to body habitus DOSE: Stress: Technetium 99m tetrofosmin, 25.6 millicuries, injected at 11:51 AM on October 11, 2017 Rest: Technetium 99m tetrofosmin, 10.1 millicuries, injected at 10:27 AM on October 11, 2017 Pharmacologic agent: Lexiscan FINDINGS: CARDIAC MONITORING: No EKG criteria of ischemia with stress EF: 73% TID: 0.93 MOTION: Normal motion, with normal wall thickening. PERFUSION: There are no fixed or reversible perfusion defects. OTHER: None IMPRESSION: NO FIXED OR REVERSIBLE PERFUSION DEFECTS. ASSESSMENT: LOW RISK. Based on imaging criteria from ACC/AHA 2002. Guideline Update for the Management of Patient's with Chronic Stable Angina, table 23. Noninvasive Risk Stratification. CPT II Codes: 5906L8J <Electronically signed by David Ovalle MD in [place]> 10/11/17 1315 Dictated By: David Ovalle MD Dictated Date/Time: 10/11/17 1315 Transcribed Date/Time: 10/11/17 1312 Copy to: CC:Jluis Zepeda MD; Britany Grant NP; Calin Tijerina MD; Jose F Gupta MD; Dominic Dow MD 1 of 2 EKG Data: . Assess/Plan/Problems-Billing Assessment: This is a 72 yo male with a PMH of DM, peripheral neuropathy and HTN, who was admitted on 10/08/17 with sepsis secondary to diabetic foot ulcers now with endocarditis and vegetation on the aortic valve, and will undergo partial Left great toe amputation today for oseteomyelitis. - Patient Problems (1) Acute osteomyelitis of toe of left foot Code(s): M86.172 - OTHER ACUTE OSTEOMYELITIS, LEFT ANKLE AND FOOT SNOMED Code( s): 646874800 Comment: - MRI consistent with osteomyelitis - Clear for OR today for Left great toe partial amputation - Ortho and ID following, plan for 6 weeks Ancef - Refer for PICC, not placed yet (last blood culture negative, can have PICC after surgery) (2) Diabetes mellitus Code(s): E11.9 - TYPE 2 DIABETES MELLITUS WITHOUT COMPLICATIONS SNOMED Code(s) : 45029906 Comment: - BGs running high 160's to 200's, likely high 2/2 infection - Continue lispro SS with BG AC and HS. (3) Diabetic neuropathy Code(s): E11.40 - TYPE 2 DIABETES MELLITUS WITH DIABETIC NEUROPATHY, UNSP SNOMED Code(s): 322667864 Comment: - Persistent pain at night. - On max dose gabapentin. - Percocet PRN. (4) Hypertension Code(s): I10 - ESSENTIAL (PRIMARY) HYPERTENSION SNOMED Code(s): 24434745 Comment: - BP well controlled. - Continue atenolol. (5) Hyperlipidemia Code(s): E78.5 - HYPERLIPIDEMIA, UNSPECIFIED SNOMED Code(s): 29200310 Comment: - Continue statin. (6) History of coronary artery disease Code(s): Z86.79 - PERSONAL HISTORY OF OTHER DISEASES OF THE CIRCULATORY SYSTEM SNOMED Code(s): 976186725 Comment: - Previous stents and likely old PA, EKG with old Q wave - Stress test on 10/11/17 is low risk without areas of reversible ischemia - TTE with vegetation on aortic valve - No chest pain, no SOB, trops negative - Clear for OR today (7) Aortic valve vegetation Code(s): I33.0 - ACUTE AND SUBACUTE INFECTIVE ENDOCARDITIS SNOMED Code(s): 676695203 Comment: - ID following, initial cultures with group B strep and MSSA; plan for 6 weeks of cefazolin - Referral for PICC, now that blood cultures remain negative Status and Disposition: Remain inpatient. Will DC home vs rehab after PICC inserted and clear by ID and ortho after surgery. Counseling and/or Coordination of Care Minutes: coordinated with patient and staff.
[2017-10-15] MEDS ORDERED: Midazolam* 1 MG/ML 10 ML VIAL (10 MG) ONE (12:56)
[2017-10-15] MEDS ORDERED: KETAMINE HCL* 50 MG/ML 10 ML VIAL ONE (12:56)
[2017-10-15] MEDS ORDERED: fentaNYL* 50 MCG/ML 2 ML VIAL (100 MCG VIAL) ONE (12:56)
[2017-10-15] MEDS ORDERED: Bupivacaine 0.5% SDV PF* 10-30ML VIAL ONE (13:30)
[2017-10-15] MEDS ORDERED: Lidocaine 2% PF* 10 ML AMP ONE ×2 (13:54→14:38)
[2017-10-15] MEDS ORDERED: Lidocaine 2% W/EPI 1:100,000* 20 ML MDV ONE (13:54)
[2017-10-15] MEDS ORDERED: Metoprolol Tartrate IV* 1 MG/ML 5 ML VIAL ONE (14:12)
[2017-10-15] MEDS ORDERED: Lidocaine 2% PF * 5 ML VIAL ONE (14:12)
[2017-10-15] MEDS ORDERED: Propofol* 10 MG/ML 20 ML BTL IV PUSH ONE (14:12)
--- NOTE | 2017-10-15 16:01 | PN ---
Progress Note - Progress Note Date of Service: 10/15/17 SOAP: Subjective: []Patient seen at bedside post-op day 0 due to recorded fever of 104.7 F ( forehead). He feels well without feeling of chills, SOB, cough, nausea, abd upset, chest pain, dizziness, dysuria or confusion. He confirms he has tolerated anesthesia well in the past with no history of post-operative fever. No personal or family history of malignant hyperthermia. Anesthesia confirms no succinylcholine was given. Objective: [] Vital Signs Temp 101.1 F 10/15/17 15:48 Pulse 90 10/15/17 15:43 Resp 16 10/15/17 15:43 BP 143/69 10/15/17 15:43 Pulse Ox 91 10/15/17 15:43 Intake & Output 10/14/17 10/15/17 10/15/17 18:59 06:59 18:59 Intake Total 1405 647 400 Output Total 975 725 500 Balance 430 -78 -100 Intake: IV Fluids 400 lr 400 IVPB 45 87 ABX - CEFAZOLIN 45 45 Magnesium 42 Oral 1360 560 Output: Urine 975 725 500 General: Well appearing, NAD. A&O x 3. Warm though not hot to touch. Temperature retaken while I was present in the room at 101 F. Skin: skin check without any rash or obvious drug eruption MSK: No muscle rigidity Assessment: []S/P L great toe amputation POD 0 Plan: [Discussed with hospitalists who are managing care/ fever and who also saw patient. Rectal temp, IV fluids, flu swab, fever monitoring
[2017-10-15] MEDS: Acetaminophen TAB* 325 MG PO PRN (16:06)
--- NOTE | 2017-10-15 16:31 | PN ---
Hospitalist Progress Note Date of Service: 10/15/17 Per RN, patient returned from OR with temp increasing. Ordered 1 liter LR wide open, tylenol 650mg, temporal temp ready 105, requested RN to obtain rectal which is reading 103.3. Confirmed with anesthesia that succinocholine was not given. Continue to monitor temps, continue hydration, mentation intact, no rash or rigidity noted upon exam. No tachycardia, BP 143/69. Will swab for influenza given higher fever, as patient's blood cultures have been negative and he has been afebrile for the last 4 days, he may have been exposed. Coordinated with staff, Gali Murdock and Dr. Yeager.
[2017-10-15] MEDS: CMCS: Simvastatin TAB(NF) 20 MG TAB PO SCH ×2 (18:09→18:11)
[2017-10-15] MEDS: Clopidogrel TAB* 75 MG PO SCH (20:46)
[2017-10-15] MEDS: Aspirin TAB* 325 MG PO SCH (20:46)
[2017-10-15] MEDS: Atenolol TAB* 50 MG PO SCH (20:46)
[2017-10-15] MEDS: oxyCODONE/Acetamin 5/325 MG* TAB PO PRN (20:46)
[2017-10-16] MEDS: ceFAZolin 2 GM PREMIX (*) 2 GM/50 ML BAG IVPB SCH ×3 (01:35→17:33)
[2017-10-16] MEDS: Acetaminophen TAB* 325 MG PO PRN (01:40)
[2017-10-16] MEDS: Gabapentin CAP(*) 300 MG PO SCH ×3 (10:10→20:47)
[2017-10-16] MEDS: Insulin LISPRO* 1 UNITS UNIT SUBCUT SCH ×4 (10:11→20:48)
[2017-10-16] MEDS: POTASSIUM CITRATE 10 MEQ PO SCH ×2 (10:11→17:33)
--- NOTE | 2017-10-16 11:01 | PN ---
Progress Note - Progress Note Date of Service: 10/16/17 SOAP: Subjective: []Patient seen at bedside POD 1 s/p left great toe amputation. He feels well without LLE pain, fever, chills, CP, SOB, abd pain or nausea. Patient was febrile Tmax 105 (forehead scan) last night and was monitored by the hospitalist service, now afebrile. Objective: []General: Sitting at edge of bed. Well appearing, NAD LLE: Dressing CDI. PT 1+ BL LE: Calves supple and nontender without erythema, edema or palpable cords. Vital Signs Temp 98.1 F 10/16/17 07:33 Pulse 63 10/16/17 07:33 Resp 16 10/16/17 10:10 BP 116/59 10/16/17 07:33 Pulse Ox 96 10/16/17 07:33 Intake & Output 10/15/17 10/16/17 10/16/17 18:59 06:59 18:59 Intake Total 400 1685 Output Total 800 650 200 Balance -400 1035 -200 Intake: IV Fluids 400 985 LR 985 lr 400 Oral 700 Output: Urine 800 650 200 Other: # Bowel Movements 0 Laboratory Last Values WBC 6.6 10^3/ul (3.5-10.8) 10/13/17 05:28 RBC 3.90 10^6/ul (4.0-5.4) L 10/13/17 05:28 Hgb 11.8 g/dl (14.0-18.0) L 10/13/17 05:28 Hct 34 % (42-52) L 10/13/17 05:28 MCV 86 fL (80-94) 10/13/17 05:28 MCH 30 pg (27-31) 10/13/17 05:28 MCHC 35 g/dl (31-36) 10/13/17 05:28 RDW 14 % (10.5-15) 10/13/17 05:28 Plt Count 184 10^3/ul (150-450) 10/13/17 05:28 MPV 7 um3 (7.4-10.4) L 10/13/17 05:28 Neut % (Auto) 46.7 % (38-83) 10/13/17 05:28 Lymph % (Auto) 39.1 % (25-47) 10/13/17 05:28 [place] % (Auto) 9.2 % (1-9) H 10/13/17 05:28 Eos % (Auto) 4.2 % (0-6) 10/13/17 05:28 Baso % (Auto) 0.8 % (0-2) 10/13/17 05:28 Absolute Neuts (auto) 3.1 10^3/ul (1.5-7.7) 10/13/17 05:28 Absolute Lymphs (auto) 2.6 10^3/ul (1.0-4.8) 10/13/17 05:28 Absolute Monos (auto) 0.6 10^3/ul (0-0.8) 10/13/17 05:28 Absolute Eos (auto) 0.3 10^3/ul (0-0.6) 10/13/17 05:28 Absolute Basos (auto) 0.1 10^3/ul (0-0.2) 10/13/17 05:28 Absolute Nucleated RBC 0 10^3/ul 10/13/17 05:28 Nucleated RBC % 0.1 10/13/17 05:28 ESR 41 mm/Hr (0-40) H 10/08/17 18:20 INR (Anticoag Therapy) 1.02 (0.77-1.02) 10/08/17 18:20 Sodium 134 mmol/L (133-145) 10/14/17 20:19 Potassium 4.2 mmol/L (3.5-5.0) 10/14/17 20:19 Chloride 99 mmol/L (101-111) L 10/14/17 20:19 Carbon Dioxide 28 mmol/L (22-32) 10/14/17 20:19 Anion Gap 7 mmol/L (2-11) 10/14/17 20:19 BUN 18 mg/dL (6-24) 10/14/17 20:19 Creatinine 0.92 mg/dL (0.67-1.17) 10/14/17 20:19 Est GFR ( Amer) 104.6 (>60) 10/14/17 20:19 Est GFR (Non-Af Amer) 81.3 (>60) 10/14/17 20:19 BUN/Creatinine Ratio 19.6 (8-20) 10/14/17 20:19 Glucose 153 mg/dL (70-100) H 10/14/17 20:19 POC Glucose (mg/dL) 160 mg/dL (70-100) H 10/16/17 09:06 Lactic Acid 1.5 mmol/L (0.5-2.0) 10/08/17 23:48 Calcium 8.9 mg/dL (8.6-10.3) 10/14/17 20:19 Magnesium 1.8 mg/dL (1.9-2.7) L 10/14/17 20:19 Total Bilirubin 0.60 mg/dL (0.2-1.0) 10/08/17 18:20 AST 8 U/L (13-39) L 10/08/17 18:20 ALT 12 U/L (7-52) 10/08/17 18:20 Alkaline Phosphatase 58 U/L (34-104) 10/08/17 18:20 Troponin I 0.00 ng/mL (<0.04) 10/11/17 09:43 C-Reactive Protein 148.61 mg/L (< 5.00) H 10/08/17 18:20 Total Protein 7.2 g/dL (6.4-8.9) 10/08/17 18:20 Albumin 4.1 g/dL (3.2-5.2) 10/08/17 18:20 Globulin 3.1 g/dL (2-4) 10/08/17 18:20 Albumin/Globulin Ratio 1.3 (1-3) 10/08/17 18:20 Urine Color Yellow 10/08/17 23:05 Urine Appearance Clear 10/08/17 23:05 Urine pH 7.0 (5-9) 10/08/17 23:05 Ur Specific [place] 1.017 (1.010-1.030) 10/08/17 23:05 Urine Protein 1+(30 mg/dl) (Negative) H 10/08/17 23:05 Urine Ketones Trace (Negative) H 10/08/17 23:05 Urine Blood Negative (Negative) 10/08/17 23:05 Urine Nitrate Negative (Negative) 10/08/17 23:05 Urine Bilirubin Negative (Negative) 10/08/17 23:05 Urine Urobilinogen Negative (Negative) 10/08/17 23:05 Ur Leukocyte Esterase Negative (Negative) 10/08/17 23:05 Urine WBC (Auto) Absent (Absent) 10/08/17 23:05 Urine RBC (Auto) 1+(3-5/hpf) (Absent) H 10/08/17 23:05 Urine Bacteria Absent (Absent) 10/08/17 23:05 Urine Glucose Negative (Negative) 10/08/17 23:05 Influenza A (Rapid) Negative (Negative) 10/15/17 17:25 Influenza B (Rapid) Negative (Negative) 10/15/17 17:25 Assessment: []POD 1 sp left great toe amputation. Plan: []Heel WB Can DC when medically stable F/U with Dr Carr in 1 week, no need for dressing change or wound care prior to this appointment.
--- NOTE | 2017-10-16 12:29 | OP ---
DATE OF OPERATION: 10/15/17 - ROOM #341 DATE OF : 49 SURGEON: Van Carr MD PHYSICAL EDUCATION AIDE: Mariola Naylor PA-C ANESTHESIOLOGIST: Boy Ramos MD ANESTHESIA: Monitored anesthesia care. PRE-OP DIAGNOSIS: Chronic osteomyelitis, left distal great toe. POST-OP DIAGNOSIS: Chronic osteomyelitis, left distal great toe. OPERATIVE PROCEDURE: Partial amputation, left great toe. DESCRIPTION OF PROCEDURE: The patient was taken to the operating room where elliptical incision was made basically at the IP joint of the left great toe. We dissected proximally to the mid portion of the proximal phalanx and divided this with an oscillating saw. Cultures were sent as well as the IP joint in the left distal great toe. We dropped the tourniquet and obtained hemostasis. Thorough irrigation was performed and then we closed dorsal to plantar flaps with 2-0 Vicryl sutures, 3-0 nylon for the skin, and the compression dressing applied. [id number]/CPS #: [id number] MTDD
[2017-10-16] MEDS ORDERED: oxyCODONE/Acetamin 5/325 MG* TAB PO PRN (13:19)
[2017-10-16] MEDS: CMCS: Simvastatin TAB(NF) 20 MG TAB PO SCH (17:34)
--- NOTE | 2017-10-16 19:01 | PN ---
Subjective Date of Service: 10/16/17 Interval History: Patient seen and examined. Fevers resolved overnight. Patient states neuropathic pain in left heel, denies SOB, no chest pain, no n/v, tolerating PO diet. No further complaints. at bedside. Objective Active Medications: Acetaminophen (Tylenol Tab*) 650 mg PO Q6H PRN PRN Reason: FEVER/PAIN Last Admin: 10/16/17 01:40 Dose: 650 mg Aspirin (Aspirin Tab*) 325 mg PO BEDTIME [facility] Last Admin: 10/15/17 20:46 Dose: 325 mg Atenolol (Tenormin Tab*) 50 mg PO BEDTIME [facility] Last Admin: 10/15/17 20:46 Dose: 50 mg Clopidogrel Bisulfate (Plavix Tab*) 75 mg PO 2100 [facility] Last Admin: 10/15/17 20:46 Dose: 75 mg Dextrose (D50w Syringe 50 Ml*) 12.5 gm IV PUSH .FOR FS < 60 - SS PRN PRN Reason: FS < 60 Gabapentin (Neurontin Cap(*)) 600 mg PO TID [facility] Last Admin: 10/16/17 13:42 Dose: 600 mg Cefazolin Sodium/Dextrose (Kefzol 2 Gm Premix(*)) 2 gm in 50 mls @ 100 mls/hr IVPB Q8H [facility] Last Admin: 10/16/17 17:33 Dose: 100 mls/hr Insulin Human Lispro (Humalog*) 0 units SUBCUT ACHS [facility] PRN Reason: Protocol Last Admin: 10/16/17 18:26 Dose: 4 units Oxycodone/Acetaminophen (Percocet 5/325 Tab*) 1 tab PO Q6H PRN PRN Reason: PAIN Potassium Citrate (Urocit-K 10 (Nf)) 20 meq PO 0900,1730 [facility] Last Admin: 10/16/17 17:33 Dose: 20 meq Simvastatin (Zocor(Nf)) 40 mg PO QPM [facility] Last Admin: 10/16/17 17:34 Dose: 20 mg Vital Signs - 8 hr 10/16/17 10/16/17 10/16/17 11:38 12:10 13:42 Temperature 98.9 F Pulse Rate 66 Respiratory 18 16 16 Rate Blood Pressure 122/56 (mmHg) O2 Sat by Pulse 96 Oximetry 10/16/17 10/16/17 15:36 17:38 Temperature 98.3 F Pulse Rate 76 Respiratory 16 16 Rate Blood Pressure 125/54 (mmHg) O2 Sat by Pulse 97 Oximetry Oxygen Devices in Use Now: None Appearance: Alert, NAD Eyes: No Scleral Icterus, PERRLA Ears/Nose/Mouth/Throat: NL Teeth, Lips, Gums, Mucous Membranes Moist Neck: NL Appearance and Movements; NL JVP, Trachea Midline Respiratory: Symmetrical Chest Expansion and Respiratory Effort, Clear to Auscultation Cardiovascular: NL Sounds; No Murmurs; No JVD, RRR, No Edema Abdominal: NL Sounds; No Tenderness; No Distention Extremities: No Edema, No Clubbing, Cyanosis, - Skin: No Rash or Ulcers, - - surgical dressing CDI Neurological: Alert and Oriented x 3 Result Diagrams: 10/13/17 05:28 10/14/17 20:19 Additional Lab and Data: . Microbiology and Other Data: . Diagnostic Imaging: .Patient Name: ZORA GASPAR Medical Record#: [id number] Ordering Physician: Britany Grant NP Acct.#: [id number] : 1945 Age: 72 Sex: M Location: SURGICAL STAY UNIT Exam Date: 10/11/17840 ADM Status: ADM IN Order Information: NUCLEAR CARDIAC STRESS TEST Accession Number: [id number] CPT: 45606 HISTORY: Cardiac catheterization, diabetes, hypertension, hyperlipidemia, preoperative screening COMPARISONS: None TECHNIQUE: A 1 day stress/rest myocardial perfusion study was performed, with pharmacologic stress. The stress portion was monitored by Dr. Santoro. Gated SPECT imaging was performed, without CT-based attenuation correction secondary to body habitus DOSE: Stress: Technetium 99m tetrofosmin, 25.6 millicuries, injected at 11:51 AM on October 11, 2017 Rest: Technetium 99m tetrofosmin, 10.1 millicuries, injected at 10:27 AM on October 11, 2017 Pharmacologic agent: Lexiscan FINDINGS: CARDIAC MONITORING: No EKG criteria of ischemia with stress EF: 73% TID: 0.93 MOTION: Normal motion, with normal wall thickening. PERFUSION: There are no fixed or reversible perfusion defects. OTHER: None IMPRESSION: NO FIXED OR REVERSIBLE PERFUSION DEFECTS. ASSESSMENT: LOW RISK. Based on imaging criteria from ACC/AHA 2002. Guideline Update for the Management of Patient's with Chronic Stable Angina, table 23. Noninvasive Risk Stratification. CPT II Codes: 2995Y7H <Electronically signed by David Ovalle MD in [place]> 10/11/17 131 Dictated By: David Ovalle MD Dictated Date/Time: 10/11/17 131 Transcribed Date/Time: 10/11/17 131 Copy to: CC:Jluis Zepeda MD; Britany Grant NP; Calin Tijerina MD; Jose F Gupta MD; Dominic Dow MD 1 of 2 EKG Data: . 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 - Patient Problems (1) Acute osteomyelitis of toe of left foot Code(s): M86.172 - OTHER ACUTE OSTEOMYELITIS, LEFT ANKLE AND FOOT SNOMED Code( s): 976468663 Comment: - Post-operative fevers resolved with fluids and tylenol - POD1, s/p Left great toe partial amputation - Ortho and ID following, plan for 6 weeks Ancef - Refer for PICC after patient afebrile 24 hours and blood cultures negative (2) Diabetes mellitus Code(s): E11.9 - TYPE 2 DIABETES MELLITUS WITHOUT COMPLICATIONS SNOMED Code(s) : 45617210 Comment: - BGs stable - Continue lispro SS with BG AC and HS. (3) Diabetic neuropathy Code(s): E11.40 - TYPE 2 DIABETES MELLITUS WITH DIABETIC NEUROPATHY, UNSP SNOMED Code(s): 448937778 Comment: - Persistent pain at night and now in left heel. - On max dose gabapentin. - Percocet PRN. (4) Hypertension Code(s): I10 - ESSENTIAL (PRIMARY) HYPERTENSION SNOMED Code(s): 63519062 Comment: - BP well controlled. - Continue atenolol. (5) Hyperlipidemia Code(s): E78.5 - HYPERLIPIDEMIA, UNSPECIFIED SNOMED Code(s): 36563301 Comment: - Continue statin. (6) History of coronary artery disease Code(s): Z86.79 - PERSONAL HISTORY OF OTHER DISEASES OF THE CIRCULATORY SYSTEM SNOMED Code(s): 193412268 Comment: - Hx of stents in the past - Negative stress 10/11 - TTE with vegetation on aortic valve - Stable CV status (7) Aortic valve vegetation Code(s): I33.0 - ACUTE AND SUBACUTE INFECTIVE ENDOCARDITIS SNOMED Code(s): 318114530 Comment: - TTE with aortic valve vegetation - Group B strep and MSSA - continue atbx per ID Status and Disposition: Remain inpatient. PICC this week and DC when clear by ortho and ID.
[2017-10-16] MEDS: Atenolol TAB* 50 MG PO SCH (20:47)
[2017-10-16] MEDS: Clopidogrel TAB* 75 MG PO SCH (20:47)
[2017-10-16] MEDS: Aspirin TAB* 325 MG PO SCH (20:47)
[2017-10-17] MEDS: ceFAZolin 2 GM PREMIX (*) 2 GM/50 ML BAG IVPB SCH ×4 (01:08→23:50)
[2017-10-17] MEDS: Acetaminophen TAB* 325 MG PO PRN ×2 (01:47→23:50)
[2017-10-17] MEDS: POTASSIUM CITRATE 10 MEQ PO SCH ×2 (08:13→18:06)
[2017-10-17] MEDS: Gabapentin CAP(*) 300 MG PO SCH ×3 (08:13→21:09)
[2017-10-17] MEDS: Insulin LISPRO* 1 UNITS UNIT SUBCUT SCH ×4 (08:14→21:09)
--- NOTE | 2017-10-17 11:59 | PN ---
Progress Note - Progress Note Date of Service: 10/17/17 SOAP: Subjective: [] Patient seen at bedside. His family accompanies him. He denies LLE pain, fever, chills, nausea or dizziness. He is awaiting PICC placement (requires 24 hours afebrile and negative blood cultures) and anxious to get out of the hospital. Objective: [] Vital Signs Temp 97.5 F 10/17/17 11:25 Pulse 61 10/17/17 11:25 Resp 18 10/17/17 11:25 BP 115/55 10/17/17 11:25 Pulse Ox 96 10/17/17 11:25 Intake & Output 10/16/17 10/17/17 10/17/17 18:59 06:59 18:59 Intake Total 2671 720 Output Total 450 1150 0 Balance 2221 -430 0 Intake: IV Fluids 2063 LR 2063 IVPB 167 ABX - CEFAZOLIN 167 Oral 440 720 Output: Urine 450 1150 0 Other: # Bowel Movements 3 Estimated Stool Amount Medium Laboratory Last Values WBC 6.6 10^3/ul (3.5-10.8) 10/13/17 05:28 RBC 3.90 10^6/ul (4.0-5.4) L 10/13/17 05:28 Hgb 11.8 g/dl (14.0-18.0) L 10/13/17 05:28 Hct 34 % (42-52) L 10/13/17 05:28 MCV 86 fL (80-94) 10/13/17 05:28 MCH 30 pg (27-31) 10/13/17 05:28 MCHC 35 g/dl (31-36) 10/13/17 05:28 RDW 14 % (10.5-15) 10/13/17 05:28 Plt Count 184 10^3/ul (150-450) 10/13/17 05:28 MPV 7 um3 (7.4-10.4) L 10/13/17 05:28 Neut % (Auto) 46.7 % (38-83) 10/13/17 05:28 Lymph % (Auto) 39.1 % (25-47) 10/13/17 05:28 [place] % (Auto) 9.2 % (1-9) H 10/13/17 05:28 Eos % (Auto) 4.2 % (0-6) 10/13/17 05:28 Baso % (Auto) 0.8 % (0-2) 10/13/17 05:28 Absolute Neuts (auto) 3.1 10^3/ul (1.5-7.7) 10/13/17 05:28 Absolute Lymphs (auto) 2.6 10^3/ul (1.0-4.8) 10/13/17 05:28 Absolute Monos (auto) 0.6 10^3/ul (0-0.8) 10/13/17 05:28 Absolute Eos (auto) 0.3 10^3/ul (0-0.6) 10/13/17 05:28 Absolute Basos (auto) 0.1 10^3/ul (0-0.2) 10/13/17 05:28 Absolute Nucleated RBC 0 10^3/ul 10/13/17 05:28 Nucleated RBC % 0.1 10/13/17 05:28 ESR 41 mm/Hr (0-40) H 10/08/17 18:20 INR (Anticoag Therapy) 1.02 (0.77-1.02) 10/08/17 18:20 Sodium 134 mmol/L (133-145) 10/14/17 20:19 Potassium 4.2 mmol/L (3.5-5.0) 10/14/17 20:19 Chloride 99 mmol/L (101-111) L 10/14/17 20:19 Carbon Dioxide 28 mmol/L (22-32) 10/14/17 20:19 Anion Gap 7 mmol/L (2-11) 10/14/17 20:19 BUN 18 mg/dL (6-24) 10/14/17 20:19 Creatinine 0.92 mg/dL (0.67-1.17) 10/14/17 20:19 Est GFR ( Amer) 104.6 (>60) 10/14/17 20:19 Est GFR (Non-Af Amer) 81.3 (>60) 10/14/17 20:19 BUN/Creatinine Ratio 19.6 (8-20) 10/14/17 20:19 Glucose 153 mg/dL (70-100) H 10/14/17 20:19 POC Glucose (mg/dL) 248 mg/dL (70-100) H 18 11:31 Lactic Acid 1.5 mmol/L (0.5-2.0) 10/08/17 23:48 Calcium 8.9 mg/dL (8.6-10.3) 10/14/17 20:19 Magnesium 1.8 mg/dL (1.9-2.7) L 10/14/17 20:19 Total Bilirubin 0.60 mg/dL (0.2-1.0) 10/08/17 18:20 AST 8 U/L (13-39) L 10/08/17 18:20 ALT 12 U/L (7-52) 10/08/17 18:20 Alkaline Phosphatase 58 U/L (34-104) 10/08/17 18:20 Troponin I 0.00 ng/mL (<0.04) 10/11/17 09:43 C-Reactive Protein 148.61 mg/L (< 5.00) H 10/08/17 18:20 Total Protein 7.2 g/dL (6.4-8.9) 10/08/17 18:20 Albumin 4.1 g/dL (3.2-5.2) 10/08/17 18:20 Globulin 3.1 g/dL (2-4) 10/08/17 18:20 Albumin/Globulin Ratio 1.3 (1-3) 10/08/17 18:20 Urine Color Yellow 10/08/17 23:05 Urine Appearance Clear 10/08/17 23:05 Urine pH 7.0 (5-9) 10/08/17 23:05 Ur Specific [place] 1.017 (1.010-1.030) 10/08/17 23:05 Urine Protein 1+(30 mg/dl) (Negative) H 10/08/17 23:05 Urine Ketones Trace (Negative) H 10/08/17 23:05 Urine Blood Negative (Negative) 10/08/17 23:05 Urine Nitrate Negative (Negative) 10/08/17 23:05 Urine Bilirubin Negative (Negative) 10/08/17 23:05 Urine Urobilinogen Negative (Negative) 10/08/17 23:05 Ur Leukocyte Esterase Negative (Negative) 10/08/17 23:05 Urine WBC (Auto) Absent (Absent) 10/08/17 23:05 Urine RBC (Auto) 1+(3-5/hpf) (Absent) H 10/08/17 23:05 Urine Bacteria Absent (Absent) 10/08/17 23:05 Urine Glucose Negative (Negative) 10/08/17 23:05 Influenza A (Rapid) Negative (Negative) 10/15/17 17:25 Influenza B (Rapid) Negative (Negative) 10/15/17 17:25 General: Well appeaing, NAD, calm and cooperative LLE: Dressing CDI. Sensation intact to exposed toes distally. Able to wiggle toes. BL LE: Calves supple and nontender without erythema, edema or palpable cords. Assessment: []POD 2 sp left great toe amputation. Plan: []Heel WB Can DC when medically stable F/U with Dr Carr 1 week post-op, no need for dressing change or wound care prior to this appointment.
[2017-10-17] MEDS: CMCS: Simvastatin TAB(NF) 20 MG TAB PO SCH (18:05)
[2017-10-17] MEDS: Aspirin TAB* 325 MG PO SCH (21:10)
[2017-10-17] MEDS: Atenolol TAB* 50 MG PO SCH (21:10)
[2017-10-17] MEDS: Clopidogrel TAB* 75 MG PO SCH (21:10)
--- NOTE | 2017-10-17 21:12 | DCNOTE ---
Subjective Date of Service: 10/17/17 Interval History: Patient seen and examined. Feeling well, pain controlled. No complaints, no fevers, ready for DC home. Objective Active Medications: Acetaminophen (Tylenol Tab*) 650 mg PO Q6H PRN PRN Reason: FEVER/PAIN Last Admin: 10/17/17 01:47 Dose: 650 mg Aspirin (Aspirin Tab*) 325 mg PO BEDTIME [facility] Last Admin: 10/16/17 20:47 Dose: 325 mg Atenolol (Tenormin Tab*) 50 mg PO BEDTIME [facility] Last Admin: 10/16/17 20:47 Dose: 50 mg Clopidogrel Bisulfate (Plavix Tab*) 75 mg PO 2100 [facility] Last Admin: 10/16/17 20:47 Dose: 75 mg Dextrose (D50w Syringe 50 Ml*) 12.5 gm IV PUSH .FOR FS < 60 - SS PRN PRN Reason: FS < 60 Gabapentin (Neurontin Cap(*)) 600 mg PO TID [facility] Last Admin: 10/17/17 13:04 Dose: 600 mg Cefazolin Sodium/Dextrose (Kefzol 2 Gm Premix(*)) 2 gm in 50 mls @ 100 mls/hr IVPB Q8H [facility] Last Admin: 10/17/17 16:55 Dose: 100 mls/hr Insulin Human Lispro (Humalog*) 0 units SUBCUT ACHS [facility] PRN Reason: Protocol Last Admin: 10/17/17 18:10 Dose: 2 units Oxycodone/Acetaminophen (Percocet 5/325 Tab*) 1 tab PO Q6H PRN PRN Reason: PAIN Potassium Citrate (Urocit-K 10 (Nf)) 20 meq PO 0900,1730 [facility] Last Admin: 10/17/17 18:06 Dose: 20 meq Simvastatin (Zocor(Nf)) 40 mg PO QPM [facility] Last Admin: 10/17/17 18:05 Dose: 20 mg Vital Signs - 8 hr 10/17/17 10/17/17 10/17/17 14:53 15:28 19:22 Temperature 97.8 F 97.6 F Pulse Rate 60 64 Respiratory 18 18 16 Rate Blood Pressure 128/64 142/67 (mmHg) O2 Sat by Pulse 99 99 Oximetry 10/17/17 19:25 Temperature Pulse Rate Respiratory 16 Rate Blood Pressure (mmHg) O2 Sat by Pulse Oximetry Oxygen Devices in Use Now: None Appearance: Alert, NAD Eyes: No Scleral Icterus, PERRLA Ears/Nose/Mouth/Throat: NL Teeth, Lips, Gums, Mucous Membranes Moist Neck: NL Appearance and Movements; NL JVP, Trachea Midline Respiratory: Symmetrical Chest Expansion and Respiratory Effort, Clear to Auscultation Cardiovascular: NL Sounds; No Murmurs; No JVD, RRR Extremities: No Edema, No Clubbing, Cyanosis Skin: No Rash or Ulcers, - - dressing CDI Neurological: Alert and Oriented x 3, NL Sensation, NL Muscle Strength and Tone Nutrition: Taking PO's Result Diagrams: 10/13/17 05:28 10/14/17 20:19 Additional Lab and Data: . Microbiology and Other Data: . Diagnostic Imaging: .Patient Name: ZORA GASPAR Medical Record#: [id number] Ordering Physician: Britany Grant NP Acct.#: [id number] : 1945 Age: 72 Sex: M Location: SURGICAL STAY UNIT Exam Date: 10/11/17840 ADM Status: ADM IN Order Information: NUCLEAR CARDIAC STRESS TEST Accession Number: [id number] CPT: 70853 HISTORY: Cardiac catheterization, diabetes, hypertension, hyperlipidemia, preoperative screening COMPARISONS: None TECHNIQUE: A 1 day stress/rest myocardial perfusion study was performed, with pharmacologic stress. The stress portion was monitored by Dr. Santoro. Gated SPECT imaging was performed, without CT-based attenuation correction secondary to body habitus DOSE: Stress: Technetium 99m tetrofosmin, 25.6 millicuries, injected at 11:51 AM on October 11, 2017 Rest: Technetium 99m tetrofosmin, 10.1 millicuries, injected at 10:27 AM on October 11, 2017 Pharmacologic agent: Lexiscan FINDINGS: CARDIAC MONITORING: No EKG criteria of ischemia with stress EF: 73% TID: 0.93 MOTION: Normal motion, with normal wall thickening. PERFUSION: There are no fixed or reversible perfusion defects. OTHER: None IMPRESSION: NO FIXED OR REVERSIBLE PERFUSION DEFECTS. ASSESSMENT: LOW RISK. Based on imaging criteria from ACC/AHA 2002. Guideline Update for the Management of Patient's with Chronic Stable Angina, table 23. Noninvasive Risk Stratification. CPT II Codes: 6766T5U <Electronically signed by David Ovalle MD in [place]> 10/11/17 1315 Dictated By: David Ovalle MD Dictated Date/Time: 10/11/17 1315 Transcribed Date/Time: 10/11/17 1312 Copy to: CC:Jluis Zepeda MD; Britany Grant NP; Calin Tijerina MD; Jose F Gupta MD; Dominic Dow MD 1 of 2 EKG Data: . 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 - Patient Problems (1) Acute osteomyelitis of toe of left foot Code(s): M86.172 - OTHER ACUTE OSTEOMYELITIS, LEFT ANKLE AND FOOT SNOMED Code( s): 144618595 Comment: - Post-operative fevers resolved with fluids and tylenol - POD2, s/p Left great toe partial amputation - Ortho and ID following, plan for 6 weeks Ancef - Refer for PICC after patient afebrile 24 hours and blood cultures negative - Clear for discharge after PICC and teaching in AM (2) Diabetes mellitus Code(s): E11.9 - TYPE 2 DIABETES MELLITUS WITHOUT COMPLICATIONS SNOMED Code(s) : 73214860 Comment: - BGs stable - Continue lispro SS with BG AC and HS. - Home on metformin (3) Diabetic neuropathy Code(s): E11.40 - TYPE 2 DIABETES MELLITUS WITH DIABETIC NEUROPATHY, UNSP SNOMED Code(s): 001414463 Comment: - Persistent pain at night, better controlled - On max dose gabapentin. - Percocet PRN. (4) Hypertension Code(s): I10 - ESSENTIAL (PRIMARY) HYPERTENSION SNOMED Code(s): 61770304 Comment: - BP well controlled. - Continue atenolol. (5) Hyperlipidemia Code(s): E78.5 - HYPERLIPIDEMIA, UNSPECIFIED SNOMED Code(s): 93610211 Comment: - Continue statin. (6) History of coronary artery disease Code(s): Z86.79 - PERSONAL HISTORY OF OTHER DISEASES OF THE CIRCULATORY SYSTEM SNOMED Code(s): 136465866 Comment: - Hx of stents in the past - Negative stress 10/11 - TTE with vegetation on aortic valve - Stable CV status (7) Aortic valve vegetation Code(s): I33.0 - ACUTE AND SUBACUTE INFECTIVE ENDOCARDITIS SNOMED Code(s): 234491566 Comment: - TTE with aortic valve vegetation - Group B strep and MSSA - continue atbx per ID - Stable Status and Disposition: Remain inpatient tonight. PICC at 7:30 tomorrow, then teaching then DC home.
[2017-10-18 03:57] VITALS: BP 114/55
[2017-10-18] MEDS: Insulin LISPRO* 1 UNITS UNIT SUBCUT SCH (07:48)
[2017-10-18] MEDS: Gabapentin CAP(*) 300 MG PO SCH (10:24)
[2017-10-18] MEDS: ceFAZolin 2 GM PREMIX (*) 2 GM/50 ML BAG IVPB SCH (10:34)
[2017-10-18] MEDS: POTASSIUM CITRATE 10 MEQ PO SCH (10:34)
--- NOTE | 2017-10-18 16:39 | DS ---
CC: Dr. Gupta * DISCHARGE SUMMARY: DATE OF ADMISSION: DATE OF DISCHARGE: PRIMARY CARE PHYSICIAN: Dr. Jose F Gupta ATTENDING DURING THIS ADMISSION: Dr. Calin Tijerina.* (DICTATED BY ALDEN LARSON NP) HOSPITAL COURSE: This is a very pleasant 72-year-old male patient, who was admitted through the emergency department on 10/08/17 and being discharged on . The patient presented on 10/08/17 with complaint of lower extremity pain primarily in his toe with some wound drainage in the left great toe. The patient states he was shoveling snow. He does have a history of diabetes and severe neuropathy in bilateral feet and stated that he noticed an opening in his toe a couple of weeks prior. The wound did not close and he began having drainage. He also had fever and chills at home. The patient also noticed some redness and surrounding erythema on the lower extremity. The patient was admitted for cellulitis and acute nonhealing diabetic foot wound. Of important note, at that time, he was admitted. He did have positive blood cultures. He was growing out Strep agalactiae and Staph aureus. He was MRSA negative, also continued with fevers and chills throughout his admission. Being that he had strep, a transthoracic echo was done on 10/09/17, which showed vegetation on the aortic valve. At that point, Surgery had been consulted for an amputation of the toe. MRI had showed osteomyelitis to the bone. ID was also consulted and everybody concurred that the toe should be amputated; however, given the vegetation on the aortic valve, it was determined that we would postpone surgery. Because the patient has had a cardiac history having had stents some 10 years prior and had not had cardiac stress test in some time, the patient was sent for cardiac stress test, which showed low risk as per Cardiology, so surgery was postponed. He underwent his surgery finally for the amputation of his toe. The patient underwent his procedure on 10/15/17. Surgery was uneventful; however, he did have some postoperative fevers. Nurse had reported initially his temporal temperature was 105; however , rectal temperature showed 103.3. It was confirmed with anesthesia, the patient did not have succinylcholine, so it was unlikely that the patient was having a malignant hyperthermia. He was given fluid administration with lactated Ringer's and Tylenol. He responded well. Fevers subsided within 24 hours. Blood cultures again were drawn, blood cultures were negative, and the patient began to feel better. At that point, PICC line had been postponed because of his fevers; however, today 10/17/17, he was referred for PICC line again. His PICC will be inserted tomorrow morning on 10/18/17. He will be referred for outpatient infusion, which he will have in the home for 6 weeks. Infusion services will be performed by [facility]. Antibiotics will be directed by Dr. Jluis Zepeda from Infectious Disease. Dr. Zepeda will keep the patient, I believe, on Ancef 2 g q.8 hours for approximately 6 weeks. The patient was stabilized. All questions were answered and ready for discharge. He will have his PICC inserted in the morning. Will have teaching with the infusion nurse and will be discharged to home in the care of his . ALDEN LARSON NP [id number]/[facility] #: [id number] TANGELA
== END 2017-10-18 11:20 | disposition home or self-care (01) | DRG 853 ==
LOC: ED 16:43 → SSU 20:42
PROVIDERS: ADMIT Internal Medicine; ATTEND Orthopaedic Surgery
PROC: 0Y6Q0Z1 Detachment at Left 1st Toe, High, Open Approach (ICD-10-PCS; principal; 2017-10-15 13:15)
PROC: 02HV33Z Insertion of Infusion Device into Superior Vena Cava, Percutaneous Approach (ICD-10-PCS; 2017-10-18)
DX: A41.01 Sepsis due to Methicillin susceptible Staphylococcus aureus (principal); I33.0 Acute and subacute infective endocarditis; E11.621 Type 2 diabetes mellitus with foot ulcer; E11.40 Type 2 diabetes mellitus with diabetic neuropathy, unspecified; M86.172 Other acute osteomyelitis, left ankle and foot; M86.672 Other chronic osteomyelitis, left ankle and foot; E11.69 Type 2 diabetes mellitus with other specified complication; L97.529 Non-pressure chronic ulcer of other part of left foot with unspecified severity; I25.10 Atherosclerotic heart disease of native coronary artery without angina pectoris; I10 Essential (primary) hypertension; E78.5 Hyperlipidemia, unspecified; R40.2412 Glasgow coma scale score 13-15, at arrival to emergency department; L03.032 Cellulitis of left toe; M60.9 Myositis, unspecified; A40.1 Sepsis due to streptococcus, group B; R50.82 Postprocedural fever; Z95.5 Presence of coronary angioplasty implant and graft; Z88.5 Allergy status to narcotic agent; Z88.1 Allergy status to other antibiotic agents; Z88.8 Allergy status to other drugs, medicaments and biological substances; Z82.49 Family history of ischemic heart disease and other diseases of the circulatory system; Z87.442 Personal history of urinary calculi
CPT/HCPCS: 36415; 78452; 80048; 80053; 81003; 81015; 83605; 83735; 84484; 85025; 85610; 85652; 86140; 87040; 87070; 87073; 87077; 87184; 87186; 87205; 87502; 87641; 88305; 88311; 93005; 93017; 93306; 99284; A9270-GY; A9502; C1751; J0690; J0692; J1644; J2001; J2250; J2270; J2405; J2704; J2785; J3010; J3370; J3475; J3490

== ENCOUNTER 2017-12-10 07:48 | Day surgery (SDC) | payer MEDICARE ==
[~2017-12-10 07:48] MED LIST: Buffered Lidocaine 0.9% SYRIN* 5 ML/SYR SYRINGE INTRADERM ONE
[2017-12-10] MEDS ORDERED: Clindamycin 900 MG IVPREMIX(* 900 MG/50 ML SDV IV ONE (08:25)
[2017-12-10] MEDS ORDERED: Midazolam* 1 MG/ML 2 ML VIAL (2 MG) ONE (09:05)
[2017-12-10] MEDS ORDERED: fentaNYL* 50 MCG/ML 2 ML VIAL (100 MCG VIAL) ONE (09:05)
[2017-12-10] MEDS ORDERED: Lidocaine 2% PF* 10 ML AMP ONE (09:51)
[2017-12-10] MEDS ORDERED: Naloxone* 0.4 MG/ML 1 ML VIAL IV PRN (10:32)
[2017-12-10 11:49] VITALS: BP 116/69
--- NOTE | 2017-12-11 14:29 | OP ---
DATE OF OPERATION: 12/10/17 - [facility] DATE OF : 49 SURGEON: Van Carr MD. LACQUER [employer]AY [employer]OTH OPERATOR: MYKEL Carmen. PRE-OP DIAGNOSIS: Left infected second toe. POST-OP DIAGNOSIS: Left infected second toe. OPERATIVE PROCEDURE: Partial excision of left second toe. DESCRIPTION OF PROCEDURE: The patient was taken to the operating room where local anesthetic was infused and an ankle Esmarch applied. We made a transverse elliptical incision over the middle phalanx, dissecting proximally to the PIP joint of the left second toe. We incised with the collateral ligaments to allow the toe to be sent to pathology. Cultures were sent. We then irrigated thoroughly and dropped the Esmarch and sewed dorsal to plantar flaps with interrupted Prolene sutures and a compression dressing was applied. [id number]/[facility] #: [id number] MTDD
== END 2017-12-10 11:51 | disposition home or self-care (01) ==
LOC: OR 07:48
PROVIDERS: ATTEND Orthopaedic Surgery
DX: L97.529 Non-pressure chronic ulcer of other part of left foot with unspecified severity (principal); M86.672 Other chronic osteomyelitis, left ankle and foot; E11.9 Type 2 diabetes mellitus without complications; I10 Essential (primary) hypertension; E78.5 Hyperlipidemia, unspecified; I25.10 Atherosclerotic heart disease of native coronary artery without angina pectoris; Z88.5 Allergy status to narcotic agent; Z88.8 Allergy status to other drugs, medicaments and biological substances; Z87.891 Personal history of nicotine dependence
CPT/HCPCS: 87070; 87073; 87205; J2001; J2250; J3010

== ENCOUNTER 2019-06-01 10:42 | Emergency (ER) | payer MEDICARE ==
--- OUTSIDE RECORDS SUMMARY | 2019-06-01 11:12 | XMS REPORT | Continuity of Care Document ---
:1945 External Reference #:[id number] Author Name CHELSEA Ramires (transmitted by agent of provider Kalyn Torres) Address [address] [place] [id number] Care Team Providers Name Role Phone Wound Clinic - Clinic/Center Care Team Information Epic Ambulatory Analyst [phone] Evelia Parra - Nurse Care Team Information Epic Ambulatory Analyst [phone] Practitioner Problems Active Problems Provider Date Diabetic peripheral neuropathy Jose F Gupta M.D.,FACP Onset: 12/15/2015 associated with type 2 diabetes mellitus Essential hypertension Jose F Gupta M.D.,FACP Onset: 12/15/2015 Coronary arteriosclerosis Jose F uGpta M.D.,FACP Onset: 12/15/2015 Note: angioplasty 2003 History of calculus of kidney Jose F Gupta M.D.,FACP Onset: 12/15/2015 Type 2 diabetes mellitus Jose F Gupta M.D.,FACP Onset: 04/05/2016 Amputated big toe Jose F Gupta M.D.,FACP Onset: 10/29/2017 Note: LT, also partial LT 2nd toe Persistent microalbuminuria associated Jose F Gupta M.D.,FACP Onset: with type 2 diabetes mellitus Social History Type Date Description Comments Sex Unknown Cigarette Use Quit 40 Years Ago ETOH Use 01/30/2018 Denies alcohol use Tobacco Use Start: Unknown Patient is a former less than 1PPD, quit End: Unknown smoker approximately 30 yrs ago Recreational Drug Use Denies Drug Use Smoking Status Reviewed: 05/21/19 Patient is a former less than 1PPD, quit smoker approximately 30 yrs ago Allergies, Adverse Reactions, Alerts Active Allergies Reaction Severity Comments Date Codeine headache 12/15/2015 Doxycycline facial numbness 06/07/2016 Cefazolin Sodium IV caused rash 10/29/2017 Lyrica angioedema? 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 Blood check fingerstick up 1units E11.69 Jose F Harris 10/19 Glucose Monitoring to three times daily Ana Gupta,FACP System last vist: 07/19/17 Device Acetaminophen ER 1 tab by mouth q6 Unknown 10/18/2017 650mg hours as needed pain Tablets ER Fish Oil 1 by mouth twice E11.42 Jose F Harris 07/19/2017 1200mg Capsules daily Ana Gupta,FACP Atenolol take 1 tablet by 90tabs I10 Evelia Parra, 05/24/2017 50mg Tablets mouth once daily APPLICATION COUNSELOR Metformin HCL 1 by mouth twice a 180tabs E11.40 Singhofiferoz Parra, 04/11/2017 1000mg day APPLICATION COUNSELOR Tablets Simvastatin take one tablet by 90tabs E78.1 Singhofia Fidel, 04/11/2017 20mg Tablets mouth every evening 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 APPLICATION COUNSELOR 5-325mg Tablets Clopidogrel Bisulfate take 1 tablet by 90tabs Zsofia Fidel, mouth once daily APPLICATION COUNSELOR 75mg Tablets Potassium Citrate ER take 4 tablets by 120tabs N20.0 Zsofia Fidel, mouth once daily APPLICATION COUNSELOR 10Meq (1080 mg) Tablets ER Gabapentin 1 by mouth every 90tabs E11.40 Zsofia Fidel, 600mg Tablets morning and 2 by APPLICATION COUNSELOR mouth every night Lisinopril-Hydrochloro take 1 tablet by 90tabs I10 Zsofia Fidel, thiazide mouth once daily APPLICATION COUNSELOR 10-12.5mg Tablets Benfotiamine Multi-B 1 tablet by mouth Unknown Neuropathy Support daily Formula Capsules Magnesium Citrate 1 tablet daily by Unknown 200mg mouth Tablets Medications Administered in Office Medication SIG Qnty Indications Ordering Provider Date Influenza,Unspecified Unknown 09/14/2014 Injection Influenza,Unspecified Unknown 09/14/2014 Injection Pneumococcal,Unspecified Unknown 09/04/2012 Injection Immunizations CPT Code Status Date Vaccine Lot # [id number] Given 08/14/2018 Influenza Virus Vaccine, Quadrivalent, Split, [id number] Preservative Free [id number] Given 07/19/2017 Influenza Virus Vaccine, Quadrivalent, Split, [id number] Preservative Free 39756 Given 07/19/2016 Zoster (Zostavax) 67713 Given 07/06/2016 Influ Virus Vaccine, Quadrivalent, Split Virus, Im [id number] Fluzone not PF [id number] Given 07/12/2015 Fluzone Vaccine 47172 Given 07/12/2015 Zoster (Zostavax) 36789 Given 01/11/2015 Pneumococcal Conjugate Vaccine 13 Valent For Intramuscular Use 21201 Given 03/05/2013 Tdap - Tetanus/Diptheria/Acellular Pertussis 64929 Given 09/04/2012 Pneumonia Vaccine Vital Signs Date Vital Result Comment 05/21/2019 9:46am Height 67 inches 5'7" Weight 175.38 lb Heart Rate 60 /min BP Systolic 124 mmHg BP Diastolic 71 mmHg Body Temperature 97.4 F O2 % BldC Oximetry 97 % BMI (Body Mass Index) 27.5 kg/m2 02/12/2019 10:02am Height 67 inches 5'7" Weight 187.00 lb Heart Rate 69 /min BP Systolic 145 mmHg recheck 159 /85 BP Diastolic 75 mmHg recheck 159 /85 BP Systolic Sitting 120 mmHg BP Diastolic Sitting 76 mmHg Body Temperature 97.3 F O2 % BldC Oximetry 97 % BMI (Body Mass Index) 29.3 kg/m2 Results Test Date Facility Test Result H/L Range Note Lipid Profile 05/20/2019 [facility] Triglycerides 214 mg/dL 1 (Trig/Chol/HDL) [address] [place] [address] [phone] Cholesterol 119 mg/dL 2 HDL Cholesterol 37.5 mg/dL 3 LDL Cholesterol 39 mg/dL 4 Laboratory test 05/20/2019 [facility] Hemoglobin A1c 6.1 % High 4.0-5.6 [address] (Glyco HGB) [place] [address] [phone] Comp Metabolic 05/20/2019 [facility] Sodium 138 Normal 135- [address] mmol/[place] [address] [phone] Potassium 4.4 mmol/L Normal 3.5-5.0 Chloride 101 mmol/L Normal 101-111 Co2 Carbon Dioxide 30 mmol/L Normal 22-32 Anion Gap 7 mmol/L Normal 2-11 Glucose 105 mg/dL High 70-100 Blood Urea Nitrogen 22 mg/dL Normal 6-24 Creatinine 0.93 mg/dL Normal 0.67-1.17 BUN/Creatinine Ratio 23.7 High 8-20 Calcium 9.5 mg/dL Normal 8.6-10.3 Total Protein 6.4 g/dL Normal 6.4-8.9 Albumin 4.3 g/dL Normal 3.2-5.2 Globulin 2.1 g/dL Normal 2-4 Albumin/Globulin Ratio 2.0 Normal 1-3 Total Bilirubin 0.50 mg/dL Normal 0.2-1.0 Alkaline Phosphatase 55 U/L Normal 34-104 Alt 21 U/L Normal 7-52 Ast 16 U/L Normal 13-39 Egfr Non- 80.1 >60 Egfr 96.9 >60 6 Laboratory test 05/20/2019 [facility] PSA Screening 3.669 Normal 0-4.000 [address] ng/[place] [address] [phone] Laboratory test 02/07/2019 [facility] Hemoglobin A1c 6.6 % High 4.0-5.[address] (Glyco HGB) [place] [address] [phone] Comp Metabolic 02/07/2019 [facility] Sodium 140 Normal 135- 145 Panel 101 mmol/[place] [address] [phone] Potassium 4.5 mmol/L Normal 3.5-5.0 Chloride 105 mmol/L Normal 101-111 Co2 Carbon Dioxide 26 mmol/L Normal 22-32 Anion Gap 9 mmol/L Normal 2-11 Glucose 115 mg/dL High 70-100 Blood Urea Nitrogen 27 mg/dL High 6-24 Creatinine 1.14 mg/dL Normal 0.67-1.17 BUN/Creatinine Ratio 23.7 High 8-20 Calcium 9.4 mg/dL Normal 8.6-10.3 Total Protein 6.5 g/dL Normal 6.4-8.9 Albumin 4.3 g/dL Normal 3.2-5.2 Globulin 2.2 g/dL Normal 2-4 Albumin/Globulin Ratio 2.0 Normal 1-3 Total Bilirubin 0.40 mg/dL Normal 0.2-1.0 Alkaline Phosphatase 43 U/L Normal 34-104 Alt 27 U/L Normal 7-52 Ast 18 U/L Normal 13-39 Egfr Non- 63.3 >60 Egfr 76.6 >60 9 Lipid Profile 02/07/2019 [facility] Triglycerides 402 mg/dL 10 (Trig/Chol/HDL) [address] [place] [address] [phone] Cholesterol 146 mg/dL 11 HDL Cholesterol 43.6 mg/dL 12 LDL Cholesterol (SEE NOTE) mg/dL 13 Urine Microalbumin 02/07/2019 [facility] Ur Microalbumin 41.0 mg /L Random [address] (mg/L) [place] [address] [phone] Urine Creatinine 95.54 mg/dL Urine Microalbumin/Creatinine 42.9 High <31 Laboratory test 02/07/2019 [facility] LDL Cholesterol 57 mg/dL [address] [place] [address] [phone] Desirable: <150 Borderline High: 150-199 High: 200-499 Very High: >500 2 Desirable: <200 Borderline High: 200-239 High: >239 3 Low: <40 Desirable: 40-60 High: >60 4 Desirable: <100 Near Optimal: 100-129 Borderline High: 130-159 High: 160-189 Very High: >189 5 Therapeutic target for the treatment of diabetes mellitus patients is <7% HBA1C, and in selective patients <6.0%. Please refer to [place] [employer] diabetic care guidelines for further information. 6 Because ethnic data is not always readily available, this report includes an eGFR for both -Americans and non- Americans. The National Kidney Disease Education Program (NKDEP) does not endorse the use of the MDRD equation for patients that are not between the ages of 18 and 70, are , have extremes of body size, muscle mass, or nutritional status, or are non- or non-. According to the National Kidney Foundation, irrespective of diagnosis, the stage of the disease is based on the level of kidney function: Stage Description GFR(mL/min/1.73 m(2)) 1 Kidney damage with normal or decreased GFR 90 2 Kidney damage with mild decrease in GFR 60-89 3 Moderate decrease in GFR 30-59 4 Severe decrease in GFR 15-29 5 Kidney failure <15 (or dialysis) 7 Serum levels of PSA measured using the [employer] DXI Hybritech immunoassay should not be interpreted as absolute evidence of the presence or absence of disease. The PSA value should be used in conjunction with other pertinent clinical diagnostic procedures. The values obtained with different assay methods or kits cannot be used interchangeably. 8 Therapeutic target for the treatment of diabetes mellitus patients is <7% HBA1C, and in selective patients <6.0%. Please refer to [place] [employer] diabetic care guidelines for further information. 9 Because ethnic data is not always readily available, this report includes an eGFR for both -Americans and non- Americans. The National Kidney Disease Education Program (NKDEP) does not endorse the use of the MDRD equation for patients that are not between the ages of 18 and 70, are , have extremes of body size, muscle mass, or nutritional status, or are non- or non-. According to the National Kidney Foundation, irrespective of diagnosis, the stage of the disease is based on the level of kidney function: Stage Description GFR(mL/min/1.73 m(2)) 1 Kidney damage with normal or decreased GFR 90 2 Kidney damage with mild decrease in GFR 60-89 3 Moderate decrease in GFR 30-59 4 Severe decrease in GFR 15-29 5 Kidney failure <15 (or dialysis) 10 Desirable: <150 Borderline High: 150-199 High: 200-499 Very High: >500 11 Desirable: <200 Borderline High: 200-239 High: >239 12 Low: <40 Desirable: 40-60 High: >60 13 Unable to calculate LDL as triglyceride is > 400 14 Desirable: <100 Near Optimal: 100-129 Borderline High: 130-159 High: 160-189 Very High: >189 Procedures Date Code Description Status 04/14/2019 877690912 Diabetic Retinal Eye Exam Completed 06/29/2017 [id number] Diabetic Retinal Eye Exam Completed 01/28/2016 [id number] Colonoscopy Completed 12/27/2015 [id number] Diabetic Retinal Eye Exam Completed 12/13/2015 [id number] Diabetic Retinal Eye Exam Completed Medical Devices Description No Information Available Encounters Description No Information Available Assessments Date Code Description Provider 05/21/2019 E11.40 Type 2 diabetes mellitus with diabetic CHELSEA Ramires neuropathy, unspecifi 05/21/2019 E78.1 Pure hyperglyceridemia CHELSEA Ramires 05/21/2019 I10 Essential (primary) hypertension CHELSEA Ramires 02/12/2019 Z00.01 Encounter for general adult medical examination CHELSEA Ramires with abnorma 02/12/2019 E78.1 Pure hyperglyceridemia CHELSEA Ramires 02/12/2019 I10 Essential (primary) hypertension CHELSEA Ramires 02/12/2019 I25.10 Atherosclerotic heart disease of [place] coronary CHELSEA Ramires artery with 02/12/2019 E11.40 Type 2 diabetes mellitus with diabetic CHELSEA Ramires neuropathy, unspecifi 02/12/2019 Z12.5 Encounter for screening for malignant neoplasm CHELSEA Ramires of prostate Plan of Treatment Future Appointment(s):10/01/2019 10:00 am - CHELSEA Ramires at [facility] Internal Medicine - [facility]05/21/2019 - Evelia Parra, FNPE11.40 Type 2 diabetes mellitus with diabetic neuropathy, unspecifiComments:Your A1c is excellent. Please call if you have symptoms of hypoglycemia.Please watch diet and add a yogurt to your daily intake You are on a moderate-potency statin to prevent new or recurrent heart disease, which is common in diabetics. Your triglyceride level much improved. Signs and symptoms of hypoglycemia include: Shakiness.Dizziness.Sweating.Hunger.Irritability or moodiness.Anxiety or nervousness.HeadacheReferral:Lex Olivares MD, Interventional Pain MedicFollow up:4 month Please print lab results if not in CVSE78.1 Pure hyperglyceridemiaComments:Much improved.I10 Essential (primary) hypertensionComments:For your high blood pressure: Continue to monitor your blood pressure. If you find your readings are consistently higher than 140/90, please give the office a call. Continue with your current medication. Functional Status Description No Information Available Mental Status Description No Information Available Referrals Refer to Reason for Referral Status Appt Date Lex Olivares MD Created [address] [place] [id number] [phone]
[2019-06-01] MEDS ORDERED: Cephalexin CAP* 500 MG PO ONE (11:45)
[2019-06-01 12:06] VITALS: BP 136/82
--- NOTE | 2019-06-08 08:14 | ED ---
Lower Extremity - HPI Summary HPI Summary: Patient is a 73-year-old diabetic with a toe amputation presenting to the ED with concern for infection over L toe. The area became erythematous and warm just proximal to the toe approximately 2-3 days ago. He denies any pain as he is a diabetic and endorses neuropathy. He states he has had an infection in this area before and was given Keflex. He denies any drainage from the area. He denies any fevers, sweats, chills. He states he has been otherwise well. He has a allergy to Keflex, however he states he has taken this in the past and developed a small rash which he believes was unrelated. - History of Current Complaint Chief Complaint: EDExtremityLower Stated Complaint: INFECTION IN FOOT- DIABETIC PER PT Time Seen by Provider: 06/01/19 11:23 Hx Obtained From: Patient, Family/Installer Severity Initially: Mild Severity Currently: Mild Pain Intensity: 2 Pain Scale Used: 0-10 Numeric Timing: Constant Location: Is Discrete @ - left foot Associated Signs And Symptoms: Positive: Bruising Aggravating Factor(s): Standing, Ambulation Alleviating Factor(s): Rest Able to Bear Weight: Yes - Allergies/Home Medications Allergies/Adverse Reactions: Allergies Allergy/AdvReac Type Severity Reaction Status Date / Time cefazolin Allergy Intermediate Rash Verified 06/01/19 11:40 doxycycline Allergy Intermediate Numbness Verified 06/01/19 11:40 pregabalin Allergy Intermediate Swelling Verified 06/01/19 11:40 codeine Allergy Mild Headache Verified 06/01/19 11:40 atorvastatin Allergy Muscle Ache Verified 06/01/19 11:40 PMH/Surg Hx/FS Hx/Imm Hx Previously Healthy: Yes Endocrine/Hematology History: Reports: Hx Diabetes - on medication, Type 2 Cardiovascular History: Reports: Hx Coronary Artery Disease - 3 stents, 2002, Hx Hypercholesterolemia, Hx Hypertension - on medication, Other Cardiovascular Problems/Disorders - Hyperlipidemia Denies: Hx Angina, Hx Myocardial Infarction, Hx Pacemaker/ICD, Hx Valvular Heart Disease Respiratory History: Denies: Hx Asthma, Hx Chronic Obstructive Pulmonary Disease (COPD), Other Respiratory Problems/Disorders GI History: Denies: Other GI Disorders History: Reports: Hx Kidney Stones - history of 3 stones and stents Denies: Other Problems/Disorders Musculoskeletal History: Reports: Hx Arthritis - Osteoarthritis, Other Musculoskeletal History - Left osteomyelitis, foot ulcer Sensory History: Reports: Hx Contacts or Glasses - Glasses Denies: Hx Hearing Aid Opthamlomology History: Reports: Hx Contacts or Glasses - Glasses Neurological History: Reports: Other Neuro Impairments/Disorders Psychiatric History: Denies: Hx Panic Disorder - Surgical History Surgery Procedure, Year, and Place: ANGIOPLASTY STENTS DONE AT [facility] IN [facility], [place], OPERATED BY [facility] ~8 YEARS AGO PT DOES NOT HAVE ANY CARDS, LITHOTRIPSY, HERNIA REPAIR X2 , WISDOM TOOTH. Left foot Great toe partial amputation 2018 Hx Anesthesia Reactions: No - Immunization History Hx Pertussis Vaccination: No Immunizations Up to Date: Yes Infectious Disease History: No Infectious Disease History: Denies: Traveled Outside the [place] in Last 30 Days - Family History Known Family History: Positive: Hypertension - Social History Occupation: Unemployed Lives: With Family Alcohol Use: None Hx Substance Use: No Substance Use Type: Reports: None Hx Tobacco Use: Yes Smoking Status (MU): Former Smoker Have You Smoked in the Last Year: No Review of Systems Negative: Fever, Chills, Fatigue, Skin Diaphoresis Negative: Palpitations, Chest Pain Negative: Shortness Of Breath, Cough Negative: Arthralgia, Myalgia Positive: Other - erythema and warmth to the dorsum of the L foot just proximal to the area of the great toe Neurological: Negative All Other Systems Reviewed And Are Negative: Yes Physical Exam Triage Information Reviewed: Yes Vital Signs On Initial Exam: Initial Vitals Temp Pulse Resp BP Pulse Ox 98.1 F 68 14 123/59 97 06/01/19 11:02 06/01/19 11:02 06/01/19 11:02 06/01/19 11:02 06/01/19 11:02 Vital Signs Reviewed: Yes Appearance: Positive: Well-Appearing, Well-Nourished Skin: Positive: Skin Color Reflects Adequate Perfusion, Other - erythema and warmth to the dorsum of the L foot just proximal to the area of the great toe Head/Face: Positive: Normal Head/Face Inspection Eyes: Positive: EOMI Neck: Positive: Supple, No Lymphadenopathy Respiratory/Lung Sounds: Positive: Clear to Auscultation, Breath Sounds Present Cardiovascular: Positive: RRR, Pulses are Symmetrical in both Upper and Lower Extremities Musculoskeletal: Positive: Strength/ROM Intact Neurological: Positive: Speech Normal Psychiatric: Positive: Affect/Mood Appropriate Diagnostics - Vital Signs Vital Signs Temp Pulse Resp BP Pulse Ox 06/01/19 12:04 97.6 F 74 15 136/82 100 06/01/19 11:02 98.1 F 68 14 123/59 97 - Laboratory Lab Statement: Any lab studies that have been ordered have been reviewed, and results considered in the medical decision making process. Lower Extremity Course/Dx - Course Course Of Treatment: On physical examination, there is erythema and warmth just proximal to the area of the great toe on the left foot. There is a partial amputation. Good pulses +2 intact bilaterally. No streaking up the extremity. No signs of worsening infection. No fever sweats or chills. Vital signs are stable. This patient has good follow-up with wound clinic and PCP, he will be discharged with Keflex at this time. - Diagnoses Differential Diagnosis/HQI/PQRI: Positive: Infection Provider Diagnoses: Cellulitis Discharge ED - Sign-Out/Discharge Documenting (check all that apply): Patient Departure Patient Received Moderate/Deep Sedation with Procedure: No - Discharge Plan Condition: Stable Disposition: HOME Prescriptions: Cephalexin CAP* [Keflex CAP*] 500 mg PO QID #28 cap MDD 4 Patient Education Materials: Cellulitis (ED) Referrals: Shayne Ha MD [Medical Doctor] - Evelia Parra NP [Primary Care Provider] - Additional Instructions: Please follow up with wound care clinic Continue your daily bandage changes If symptoms worsen or you develop fevers, streaking up the leg - return to the ED If you develop a rash, discontinue your keflex, call ED or your PCP and obtain a different abx. - Billing Disposition and Condition Condition: STABLE Disposition: Home - Attestation Statements Provider Attestation: I was available for consult. This patient was seen by the FABY. The patient was not presented to, seen by, or examined by me. Anthony Gilmore MD
== END 2019-06-01 12:04 | disposition home or self-care (01) ==
LOC: ED 10:42
DX: L03.116 Cellulitis of left lower limb (principal); E11.9 Type 2 diabetes mellitus without complications; Z79.84 Long term (current) use of oral hypoglycemic drugs; I10 Essential (primary) hypertension; Z89.432 Acquired absence of left foot; Z95.5 Presence of coronary angioplasty implant and graft; Z88.1 Allergy status to other antibiotic agents; Z88.5 Allergy status to narcotic agent; Z88.8 Allergy status to other drugs, medicaments and biological substances; Z87.891 Personal history of nicotine dependence
CPT/HCPCS: 99282; A9270-GY

== ENCOUNTER 2019-08-10 17:03 | Emergency (ER) | payer MEDICARE ==
--- NOTE | 2019-08-10 17:56 | ED ---
Lower Extremity - HPI Summary HPI Summary: 75-year-old male with a significant past medical history of non- insulin-dependent type 2 diabetes mellitus presents to the emergency department today with a chief complaint of "an infection on my left foot". She states one month ago he was treated for the same reason and was given oral Keflex which resolved his symptoms. He states he woke up this morning and saw considerable redness with warmth. Skin surrounding his left second toe as well as the dorsal aspect of his left foot. He denies drainage from the foot. He states there is no associated pain however he does endorse diabetic neuropathy. He states he is able to ambulate with no problems. He is status post left great toe removal due to diabetic problems. He denies fevers, chest pain, abdominal pain, shortness of breath, pain with urination, pain in his lower legs. He states his blood sugar has been well controlled with an A1c of 6.1 and typical blood glucose of 110. 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 Negative: Bruising, Fever Aggravating Factor(s): Ambulation Alleviating Factor(s): Rest Able to Bear Weight: Yes - Allergies/Home Medications Allergies/Adverse Reactions: Allergies Allergy/AdvReac Type Severity Reaction Status Date / Time cefazolin Allergy Intermediate Rash Verified 06/01/19 11:40 doxycycline Allergy Intermediate Numbness Verified 06/01/19 11:40 pregabalin Allergy Intermediate Swelling Verified 06/01/19 11:40 codeine Allergy Mild Headache Verified 06/01/19 11:40 atorvastatin Allergy Muscle Ache Verified 06/01/19 11:40 PMH/Surg Hx/FS Hx/Imm Hx Endocrine/Hematology History: Reports: Hx Diabetes - on medication, Type 2 Cardiovascular History: Reports: Hx Coronary Artery Disease - 3 stents, 2002, Hx Hypercholesterolemia, Hx Hypertension - on medication, Other Cardiovascular Problems/Disorders - Hyperlipidemia Denies: Hx Angina, Hx Myocardial Infarction, Hx Pacemaker/ICD, Hx Valvular Heart Disease Respiratory History: Denies: Hx Asthma, Hx Chronic Obstructive Pulmonary Disease (COPD), Other Respiratory Problems/Disorders GI History: Denies: Other GI Disorders History: Reports: Hx Kidney Stones - history of 3 stones and stents Denies: Other Problems/Disorders Musculoskeletal History: Reports: Hx Arthritis - Osteoarthritis, Other Musculoskeletal History - Left osteomyelitis, foot ulcer Sensory History: Reports: Hx Contacts or Glasses - Glasses Denies: Hx Hearing Aid Opthamlomology History: Reports: Hx Contacts or Glasses - Glasses Neurological History: Reports: Other Neuro Impairments/Disorders Psychiatric History: Denies: Hx Panic Disorder - Surgical History Surgery Procedure, Year, and Place: ANGIOPLASTY STENTS DONE AT [facility] IN [facility] ~8 YEARS AGO PT DOES NOT HAVE ANY CARDS, LITHOTRIPSY, HERNIA REPAIR X2 , WISDOM TOOTH. Left foot Great toe partial amputation 2018 Hx Anesthesia Reactions: No Infectious Disease History: No Infectious Disease History: Denies: Traveled Outside the in Last 30 Days - Family History Known Family History: Positive: Hypertension - Social History Alcohol Use: None Substance Use Type: Reports: None Smoking Status (MU): Former Smoker Have You Smoked in the Last Year: No Review of Systems Constitutional: Negative Cardiovascular: Negative Respiratory: Negative Gastrointestinal: Negative Positive: Rash - at L foot Neurological: Negative Psychological: Normal All Other Systems Reviewed And Are Negative: Yes Physical Exam Triage Information Reviewed: Yes Vital Signs On Initial Exam: Initial Vitals Temp Pulse Resp BP Pulse Ox 98.4 F 77 16 138/77 97 08/10/19 17:17 08/10/19 17:17 08/10/19 17:17 08/10/19 17:17 08/10/19 17:17 Vital Signs Reviewed: Yes Appearance: Positive: Well-Appearing, No Pain Distress, Well-Nourished Skin: Positive: Warm, Skin Color Reflects Adequate Perfusion, Other - Left foot is status post removal of the great toe. Left second toe has significant erythema which extends to the dorsal aspect of the left foot. Skin overlying the left foot on the dorsal aspect is warm to touch. No evidence of drainage. There is unstageable ulcer to the distal aspect of the distal phalanx of the left second toe. He has decreased range of motion in the toes and left foot. There is trace edema to the dorsal aspect of the left foot. Patient denies pain with palpation of the left toe and foot. Head/Face: Positive: Normal Head/Face Inspection Eyes: Positive: EOMI, KEZIA ENT: Positive: Hearing grossly normal Respiratory/Lung Sounds: Positive: Clear to Auscultation, Breath Sounds Present Cardiovascular: Positive: RRR, S1, S2 Neurological: Positive: Sensory/Motor Intact, Alert, Oriented to Person Place, Time, Normal Gait, Speech Normal Psychiatric: Positive: Normal Procedures - Sedation Patient Received Moderate/Deep Sedation with Procedure: No Diagnostics - Vital Signs Vital Signs Temp Pulse Resp BP Pulse Ox 08/10/19 17:17 98.4 F 77 16 138/77 97 - Laboratory Result Diagrams: 08/10/19 17:56 08/10/19 17:56 Lab Statement: Any lab studies that have been ordered have been reviewed, and results considered in the medical decision making process. Lower Extremity Course/Dx - Course Course Of Treatment: Patient was seen and evaluated in the emergency department for possible infection of his left foot. Patient was seen and examined. Laboratory studies as well as diagnostic imaging was obtained. Laboratory results returned showing white blood cell count of 8.9 with no evidence of leukocytosis or maxillary shift. There are no electrolyte abnormalities noted. There is a decrease in renal function but this is unchanged from his prior visit from May 20, 2019. Blood glucose is 125. CRP is normal at 3.53 and ESR normal at 9. X-ray of the left foot shows evidence of arterial insufficiency in the distal infrapopliteal and pedal arteries, but no evidence of osteomyelitis. Patient vital signs are stable and he is afebrile. There is no evidence of systemic infection or also myelitis. This is likely a cellulitis of the left foot. He'll be given 1 dose of 500 mg Keflex here in the emergency department and then a prescription will be sent to his pharmacy for continued treatment. Patient chart states she is allergic to cefazolin however he was given Keflex with no adverse reactions to weeks ago. Patient state it is not a "true allergy ". He is to be discharged and follow up with his primary care provider in the next 2-3 days for further evaluation. He was informed to return to the emergency department if he develops any new or worsening symptoms. Patient agrees this plan. - Diagnoses Differential Diagnosis/HQI/PQRI: Positive: Cellulitis, Infection, Osteomyelitis , Septic Arthritis Provider Diagnoses: Cellulitis Discharge ED - Sign-Out/Discharge Documenting (check all that apply): Patient Departure - Discharge Plan Condition: Stable Disposition: HOME Prescriptions: Cephalexin CAP* [Keflex CAP*] 500 mg PO QID #28 cap Patient Education Materials: Cellulitis (ED) Referrals: Evelia Parra NP [Primary Care Provider] - 2 Days Additional Instructions: You're seen in the emergency department today for cellulitis on your left foot. Please take the antibiotics I prescribed for you as instructed. Take one 500 mg tablet every 6 hours for 7 days. Please complete the whole course of antibiotic treatment even if you begin feeling better. Follow up with your primary care doctor in 2-3 days for further evaluation and management of your symptoms. Please return to the emergency department immediately if you develops any new or worsening symptoms. - Billing Disposition and Condition Condition: STABLE Disposition: Home
[2019-08-10 18:03] LABS: ABS Eosinophils 0.2 10^3/ul (0-0.6); ABS Lymphocytes 1.9 10^3/ul (1.0-4.8); ABS Monocytes 0.5 10^3/ul (0-0.8); ABS Neutrophils 6.2 10^3/ul (1.5-7.7); Eosinophil % 2.5 %; Hematocrit 39 % (42-52); Hemoglobin 13.3 g/dL (14.0-18.0); Mean Corpuscular HGB Conc 34 g/dL (31-36); Mean Corpuscular Hemoglobin 31 pg (27-31); Mean Corpuscular Volume 91 fL (80-94); Mean Platelet Volume 7.8 fL (7.4-10.4); Nucleated Red Blood Cells % 0.2; Platelet Count 175 10^3/uL (150-450); Red Blood Count 4.32 10^6 /uL (4.18-5.48); Red Cell Distribution Width 14 % (10-15); White Blood Count 8.9 10^3/uL (3.5-10.8)
[2019-08-10 18:19] LABS: Albumin 4.1 g/dL (3.2-5.2); Albumin/Globulin Ratio 1.6 (1-3); BUN/Creatinine Ratio 23.3 (8-20); C Reactive Protein 3.53 mg/L (<8.01); Calcium 9.5 mg/dL (8.6-10.3); EGFR African American 74.9 (>60); EGFR Non-African American 61.9 (>60); Globulin 2.5 g/dL (2-4); Potassium 4.2 mmol/L (3.5-5.0); Total Bilirubin 0.3 mg/dL (0.2-1.0); Total Protein 6.6 g/dL (6.4-8.9)
[2019-08-10 19:19] LABS: Erythrocyte Sed Rate 9 mm/Hr (0-19)
[2019-08-10] MEDS ORDERED: Cephalexin CAP* 500 MG PO ONE ×3 (19:28→19:50)
[2019-08-10 19:58] VITALS: BP 152/96
== END 2019-08-10 19:58 | disposition home or self-care (01) ==
LOC: ED 17:03
DX: L03.116 Cellulitis of left lower limb (principal); E11.9 Type 2 diabetes mellitus without complications; Z87.891 Personal history of nicotine dependence; I25.10 Atherosclerotic heart disease of native coronary artery without angina pectoris; Z95.5 Presence of coronary angioplasty implant and graft; E78.00 Pure hypercholesterolemia, unspecified; I10 Essential (primary) hypertension; Z87.442 Personal history of urinary calculi
CPT/HCPCS: 36415; 80053; 85025; 85652; 86140; 99283; A9270-GY

== ENCOUNTER 2019-09-08 05:33 | Day surgery (SDC) | payer MEDICARE ==
[~2019-09-08 05:33] MED LIST changes: -Buffered Lidocaine 0.9% SYRIN* 5 ML/SYR SYRINGE INTRADERM ONE; +Buffered Lidocaine 1% SYRIN* 1 ML/SYRINGE INTRADERM ONE
[2019-09-08] MEDS ORDERED: Acetaminophen TAB* 325 MG PO ONE (06:00)
[2019-09-08] MEDS ORDERED: Famotidine IV* 10 MG/ML 2 ML (20 mg) IV ONE (06:00)
[2019-09-08] MEDS ORDERED: Lactated Ringers 1000 ML Bag* 1,000 ML IV SCH (06:00)
[2019-09-08] MEDS ORDERED: Acetaminophen TAB* 325 MG ONE (06:15)
[2019-09-08] MEDS ORDERED: Clindamycin 900 MG/D5W BAG(*) 900 MG/50 ML BAG IVPB ONE (06:16)
[2019-09-08] MEDS ORDERED: Famotidine IV* 10 MG/ML 2 ML (20 mg) ONE (06:16)
[2019-09-08] MEDS ORDERED: Gabapentin CAP(*) 300 MG ONE (06:37)
[2019-09-08] MEDS ORDERED: Bupivacaine 0.5%* 50 ML MDV VIAL ONE (07:10)
[2019-09-08] MEDS ORDERED: fentaNYL* 50 MCG/ML 2 ML VIAL (100 MCG VIAL) ONE (07:23)
[2019-09-08] MEDS ORDERED: Midazolam* 1 MG/ML 2 ML VIAL (2 MG) ONE (07:23)
[2019-09-08] MEDS ORDERED: Lidocaine 2% PF * 5 ML VIAL ONE ×2 (07:53)
[2019-09-08] MEDS ORDERED: Propofol* 10 MG/ML 20 ML BTL ONE (07:53)
[2019-09-08] MEDS ORDERED: fentaNYL* 50 MCG/ML 2 ML VIAL (100 MCG VIAL) IV PRN (07:59)
[2019-09-08] MEDS ORDERED: Naloxone* 0.4 MG/ML 1 ML VIAL IV PRN (07:59)
[2019-09-08] MEDS ORDERED: HYDROcodone/ACETAMIN 5-325 MG* 1 TAB PO PRN (07:59)
[2019-09-08] MEDS ORDERED: Ondansetron INJ* 2 MG/ML VIAL IV PRN (07:59)
[2019-09-08] MEDS ORDERED: Gabapentin CAP(*) 300 MG PO ONE (07:59)
[2019-09-08] MEDS ORDERED: DiMENhydriNATE IV* 50 MG/ML VIAL IV PUSH PRN (07:59)
[2019-09-08] MEDS ORDERED: Vancomycin(*) 1,000 MG in NS 0.9% 250 ML* 250 ML IV ONE (09:00)
[2019-09-08 10:24] VITALS: BP 116/77
--- NOTE | 2019-09-08 21:13 | OP ---
[facility]19 [facility] DATE OF : 49 SURGEON: Van Carr MD. STUNT DOUBLE: Adolfo Magaña PA-C. PRE-OP DIAGNOSES: 1. Osteomyelitis. 2. Necrotic left second toe tip. POST-OP DIAGNOSIS: Metatarsophalangeal disarticulation, left second toe. OPERATIVE PROCEDURE: Metatarsophalangeal disarticulation, left second toe. DESCRIPTION OF PROCEDURE: The patient was taken to the operating room where local anesthetic was instilled around his midfoot. We made an elliptical incision around the base of the left second toe proximal phalanx. We dissected proximally to disarticulate the MTP joint, sent it to Pathology with local cultures sent. We then closed dorsal to plantar with 2-0 Monocryl sutures and 2 -0 Prolene for the skin and a compression dressing applied. Tourniquet had been dropped. There was no vigorous bleeding. [id number]/CPS #: [id number] [facility]OSPITALVinny
== END 2019-09-08 10:25 | disposition home or self-care (01) ==
LOC: OR 05:33
PROVIDERS: ATTEND Orthopaedic Surgery
DX: M86.8X7 Other osteomyelitis, ankle and foot (principal); L97.524 Non-pressure chronic ulcer of other part of left foot with necrosis of bone; E11.621 Type 2 diabetes mellitus with foot ulcer; Z79.84 Long term (current) use of oral hypoglycemic drugs; I25.10 Atherosclerotic heart disease of native coronary artery without angina pectoris; I10 Essential (primary) hypertension; E11.40 Type 2 diabetes mellitus with diabetic neuropathy, unspecified; R80.9 Proteinuria, unspecified; Z87.891 Personal history of nicotine dependence
CPT/HCPCS: 87070; 87073; 87205; 88305; 88311; A9270-GY; J2250; J2704; J3010; J3370; J3490

== ENCOUNTER 2022-01-04 07:52 | Inpatient (IN) ==
[2022-01-04 09:10] LABS: ABS Eosinophils 0.2 10^3/ul (0-0.6); ABS Lymphocytes 1.5 10^3/ul (1.0-4.8); ABS Monocytes 0.4 10^3/ul (0-0.8); ABS Neutrophils 3.4 10^3/ul (1.5-7.7); Eosinophil % 3.3 %; Hematocrit 34 % (42-52); Hemoglobin 12.3 g/dL (14.0-18.0); Lymphocyte % 27.7 %; Mean Corpuscular HGB Conc 36 g/dL (31-36); Mean Corpuscular Hemoglobin 32 pg (27-31); Mean Corpuscular Volume 90 fL (80-94); Mean Platelet Volume 8.1 fL (7.4-10.4); Platelet Count 153 10^3/uL (150-450); Red Blood Count 3.78 10^6 /uL (4.18-5.48); Red Cell Distribution Width 14 % (10-15); White Blood Count 5.6 10^3/uL (3.5-10.8)
[2022-01-04 09:55] LABS: Albumin/Globulin Ratio 1.7 (1-3); Calcium 9.5 mg/dL (8.6-10.3); Globulin 2.3 g/dL (2-4); Magnesium 1.8 mg/dL (1.9-2.7); Potassium 4.5 mmol/L (3.5-5.0); Total Bilirubin 0.4 mg/dL (0.2-1.0); Total Protein 6.3 g/dL (6.4-8.9); eGFR CKD-EPI 59.3 (>60)
[2022-01-04 10:30] LABS: High Sensitivity Troponin 1 Hr 3 pg/mL (<20)
[2022-01-04] MEDS ORDERED: Magnesium Sulfate IV 1GM/100ML 1 GM/100 ML BAG IV ONE (11:09)
[2022-01-04] MEDS ORDERED: HYDROcodone/ACETAMIN 5/325 mg TAB ONE (13:20)
[2022-01-04] MEDS ORDERED: Iodixanol (CONTRAST) 320 MG/ML 100 ML SDV IV ONE (13:21)
[2022-01-04] MEDS ORDERED: HYDROcodone/ACETAMIN 5/325 mg TAB PO ONE (13:21)
[2022-01-04 13:30] LABS: C Reactive Protein 6.7 mg/L (<8.01)
[2022-01-04] MEDS ORDERED: Ondansetron 4 mg VIAL 2 MG/ML 2 ml VIAL IV PRN (14:46)
[2022-01-04] MEDS ORDERED: Dextrose 50% Syringe 50 ml 25 GM/50 ML SYRINGE IV PUSH PRN ×2 (14:46)
[2022-01-04] MEDS: Enoxaparin 40 MG/0.4 ML SYR SUBCUT SCH (16:13)
[2022-01-04] MEDS ORDERED: LORazepam 2 mg VIAL 1 ml IV PUSH ONE (18:19)
[2022-01-04] MEDS ORDERED: Lorazepam PYXIS KEY PRN (18:19)
[2022-01-04] MEDS: CMCS: OMEGA-3 FATTY ACID 1000 mg(NF) PO SCH (21:29)
[2022-01-04] MEDS: CMCS: Simvastatin 20 mg TAB (NF) PO SCH (21:31)
[2022-01-04] MEDS: HYDROcodone/ACETAMIN 5/325 mg TAB PO PRN (21:33)
[2022-01-05 06:24] LABS: ABS Eosinophils 0.1 10^3/ul (0-0.6); ABS Lymphocytes 1.4 10^3/ul (1.0-4.8); ABS Monocytes 0.5 10^3/ul (0-0.8); ABS Neutrophils 3.5 10^3/ul (1.5-7.7); Eosinophil % 2.2 %; Hematocrit 36 % (42-52); Hemoglobin 12.5 g/dL (14.0-18.0); Lymphocyte % 25.3 %; Mean Corpuscular HGB Conc 35 g/dL (31-36); Mean Corpuscular Hemoglobin 32 pg (27-31); Mean Corpuscular Volume 90 fL (80-94); Platelet Count 157 10^3/uL (150-450); Red Blood Count 3.97 10^6 /uL (4.18-5.48); Red Cell Distribution Width 14 % (10-15); White Blood Count 5.5 10^3/uL (3.5-10.8)
[2022-01-05 07:10] LABS: Albumin/Globulin Ratio 1.7 (1-3); C Reactive Protein 5.74 mg/L (<8.01); Calcium 9.2 mg/dL (8.6-10.3); Globulin 2.3 g/dL (2-4); HDL Cholesterol 38.2 mg/dL; Magnesium 1.9 mg/dL (1.9-2.7); Potassium 4.2 mmol/L (3.5-5.0); Total Bilirubin 0.4 mg/dL (0.2-1.0); Total Protein 6.3 g/dL (6.4-8.9); eGFR CKD-EPI 66.1 (>60)
[2022-01-05] MEDS: HYDROcodone/ACETAMIN 5/325 mg TAB PO PRN (08:21)
[2022-01-05] MEDS: LORazepam 2 mg VIAL 1 ml IV PUSH PRN ×2 (10:02→14:07)
[2022-01-05] MEDS: BENFOTIAMINE 150 MG PO SCH (10:57)
[2022-01-05] MEDS ORDERED: LORazepam 2 mg VIAL 1 ml IV PUSH PRN (13:52)
[2022-01-05] MEDS ORDERED: Lorazepam PYXIS KEY PRN (13:52)
[2022-01-05] MEDS: CMCS: OMEGA-3 FATTY ACID 1000 mg(NF) PO SCH ×2 (14:07→20:00)
[2022-01-05] MEDS: Enoxaparin 40 MG/0.4 ML SYR SUBCUT SCH (15:56)
[2022-01-05] MEDS: CMCS: Simvastatin 20 mg TAB (NF) PO SCH (20:01)
[2022-01-06 03:26] LABS: TSH Ultra Thyroid Stim Horm 2.94 mcIU/mL (0.34-5.60)
[2022-01-06 08:31] LABS: ABS Eosinophils 0.2 10^3/ul (0-0.6); ABS Lymphocytes 1.7 10^3/ul (1.0-4.8); ABS Monocytes 0.5 10^3/ul (0-0.8); ABS Neutrophils 2.7 10^3/ul (1.5-7.7); Eosinophil % 3.2 %; Hematocrit 37 % (42-52); Hemoglobin 12.7 g/dL (14.0-18.0); Lymphocyte % 33.5 %; Mean Corpuscular HGB Conc 34 g/dL (31-36); Mean Corpuscular Hemoglobin 31 pg (27-31); Mean Corpuscular Volume 92 fL (80-94); Mean Platelet Volume 7.8 fL (7.4-10.4); Nucleated Red Blood Cells % 0.1; Platelet Count 173 10^3/uL (150-450); Red Blood Count 4.06 10^6 /uL (4.18-5.48); Red Cell Distribution Width 14 % (10-15); White Blood Count 5.1 10^3/uL (3.5-10.8)
[2022-01-06 09:29] LABS: Calcium 9.2 mg/dL (8.6-10.3); Magnesium 2.1 mg/dL (1.9-2.7); Potassium 4.7 mmol/L (3.5-5.0); eGFR CKD-EPI 56.6 (>60)
[2022-01-06] MEDS: CMCS: OMEGA-3 FATTY ACID 1000 mg(NF) PO SCH ×2 (12:54→20:36)
[2022-01-06] MEDS ORDERED: D5W 1/2 NS 1000 ml BAG 1,000 ML IV SCH (13:00)
[2022-01-06] MEDS: BENFOTIAMINE 150 MG PO SCH (13:10)
[2022-01-06] MEDS: Enoxaparin 40 MG/0.4 ML SYR SUBCUT SCH (16:26)
[2022-01-06] MEDS: LORazepam 2 mg VIAL 1 ml IV PUSH PRN ×2 (16:26→20:37)
[2022-01-06] MEDS: HYDROcodone/ACETAMIN 5/325 mg TAB PO PRN (18:32)
[2022-01-06] MEDS: CMCS: Simvastatin 20 mg TAB (NF) PO SCH (20:37)
[2022-01-07 06:59] LABS: ABS Eosinophils 0.2 10^3/ul (0-0.6); ABS Lymphocytes 1.9 10^3/ul (1.0-4.8); ABS Monocytes 0.5 10^3/ul (0-0.8); ABS Neutrophils 2.7 10^3/ul (1.5-7.7); Eosinophil % 4.5 %; Hematocrit 34 % (42-52); Lymphocyte % 35.4 %; Mean Corpuscular HGB Conc 35 g/dL (31-36); Mean Corpuscular Hemoglobin 32 pg (27-31); Mean Corpuscular Volume 90 fL (80-94); Mean Platelet Volume 7.8 fL (7.4-10.4); Platelet Count 154 10^3/uL (150-450); Red Cell Distribution Width 14 % (10-15); White Blood Count 5.3 10^3/uL (3.5-10.8)
[2022-01-07 07:16] LABS: Calcium 8.7 mg/dL (8.6-10.3); Potassium 4.3 mmol/L (3.5-5.0); eGFR CKD-EPI 62.2 (>60)
[2022-01-07] MEDS: CMCS: OMEGA-3 FATTY ACID 1000 mg(NF) PO SCH (08:59)
[2022-01-07 16:33] VITALS: BP 132/78
== END 2022-01-07 16:30 | disposition home or self-care (01) | DRG 201 ==
LOC: EDHOLD 07:52 → ED 07:52 → SUATTDRO 14:46 → MEDTELE 16:40
PROVIDERS: ADMIT Internal Medicine; ATTEND Hospitalist

== ENCOUNTER 2024-09-25 15:15 | Inpatient (IN) ==
[2024-09-25 16:49] LABS: ABS Eosinophils 0.1 10^3/uL (0.0-0.5); ABS Lymphocytes 0.9 10^3/uL (1.0-4.8); ABS Monocytes 0.7 10^3/uL (0.0-1.1); ABS Neutrophils 7.7 10^3/uL (1.5-7.6); Eosinophil % 1.3 %; Hematocrit 34.9 % (38-53); Hemoglobin 11.8 g/dL (13.2-16.3); Lymphocyte % 9.1 %; Mean Corpuscular Hgb Conc 33.9 g/dL (31-36); Mean Corpuscular Volume 88.5 fL (80-97); Mean Platelet Volume 8.4 fL (7.5-11.2); Platelet Count 191 10^3/uL (150-450); Red Blood Count 3.95 10^6/uL (4.06-5.63); Red Cell Distribution Width 14.4 % (12-17); White Blood Count 9.4 10^3/uL (3.6-10.2)
[2024-09-25] MEDS: cefTRIAXone 2 gm/50 mL D5W 2 GM/50 ML BAG IV ONE (17:09)
[2024-09-25] MEDS: Lactated Ringers 1000 ml BAG 1,000 ML IV SCH (17:10)
[2024-09-25 17:17] LABS: Albumin 3.8 g/dL (3.5-5.7); Albumin/Globulin Ratio 1.4 (1-3); C Reactive Protein 191.08 mg/L (<8.01); Calcium 8.8 mg/dL (8.6-10.3); Creatinine, Serum 1.58 mg/dL (0.67-1.17); Globulin 2.7 g/dL (2-4); Potassium 4.7 mmol/L (3.5-5.0); Total Bilirubin 0.3 mg/dL (0.2-1.0); Total Protein 6.5 g/dL (6.4-8.9); eGFR CKD-EPI 44.8 (>60)
[2024-09-25] MEDS: Acetaminophen IV 1 GM/100ML 1,000 MG/100 ML BAG IV ONE (18:20)
[2024-09-25 18:22] LABS: Erythrocyte Sed Rate 80 mm/Hr (0-19)
[2024-09-25] MEDS: Iodixanol 320 (CONTRAST) 100 ML SDV IV ONE (19:59)
[2024-09-25] MEDS: Vancomycin 1,500 MG in NS 0.9% 250 ml 250 ML IVPB ONE (22:07)
[2024-09-25] MEDS: Vancomycin 1,000 MG in NS 0.9% 250 ml 250 ML IVPB ONE (22:17)
[2024-09-26] MEDS ORDERED: Dextrose 50% Syringe 50 ml 25 GM/50 ML SYRINGE IV PUSH PRN (01:00)
[2024-09-26] MEDS: Lactated Ringers 1000 ml BAG 1,000 ML IV SCH (01:29)
[2024-09-26 01:35] LABS: Urine Appearance Clear; Urine Bacteria Absent /HPF (Absent); Urine Bilirubin Negative (Negative); Urine Blood 1+ (Negative); Urine Color Light-Yellow; Urine Glucose 4+ (>=1000 mg/dL) (Negative); Urine Ketones Negative (Negative); Urine Nitrite Negative (Negative); Urine Protein 2+ (>=100 mg/dL) (Negative); Urine Red Blood Cell Trace(0-2/hpf) /HPF (0-Trace); Urine Urobilinogen Negative (Negative); Urine White Blood Cell Absent /HPF (0-Trace)
[2024-09-26] MEDS ORDERED: Naloxone Nasal Spray 4 MG/0.1 ML NASAL.SPR INTRANASAL PRN (01:46)
[2024-09-26] MEDS ORDERED: Vancomycin per Pharmacy 1 EA NOTE FOLLOW UP SCH ×2 (02:00→13:00)
[2024-09-26] MEDS: Enoxaparin 40 MG/0.4 ML SYR SUBCUT SCH (02:18)
[2024-09-26] MEDS ORDERED: HYDROcodone/ACETAMIN 5/325 mg TAB PO SCH (06:00)
[2024-09-26 07:50] LABS: ABS Eosinophils 0.1 10^3/uL (0.0-0.5); ABS Lymphocytes 1.4 10^3/uL (1.0-4.8); ABS Monocytes 0.6 10^3/uL (0.0-1.1); ABS Neutrophils 6.3 10^3/uL (1.5-7.6); Eosinophil % 0.8 %; Hematocrit 30.2 % (38-53); Hemoglobin 10.4 g/dL (13.2-16.3); Lymphocyte % 16.2 %; Mean Corpuscular Hemoglobin 30.4 pg (27-33); Mean Corpuscular Hgb Conc 34.4 g/dL (31-36); Mean Corpuscular Volume 88.4 fL (80-97); Mean Platelet Volume 8.1 fL (7.5-11.2); Platelet Count 169 10^3/uL (150-450); Red Blood Count 3.42 10^6/uL (4.06-5.63); Red Cell Distribution Width 14.6 % (12-17); White Blood Count 8.4 10^3/uL (3.6-10.2)
[2024-09-26 08:21] LABS: Calcium 8.6 mg/dL (8.6-10.3); Creatinine, Serum 1.41 mg/dL (0.67-1.17); Magnesium 1.9 mg/dL (1.9-2.7); Potassium 4.7 mmol/L (3.5-5.0); eGFR CKD-EPI 51.3 (>60)
[2024-09-26] MEDS: Sodium Bicarb 650 mg (ANTACID) TAB PO SCH (10:28)
[2024-09-26] MEDS: Cefepime 2 GM in Dextrose 2 GM/50 ML BAG IV SCH ×2 (10:28→22:31)
[2024-09-26] MEDS: HYDROcodone/Acetamin 10/325 TAB (NF) PO PRN (11:50)
[2024-09-26] MEDS ORDERED: Vancomycin 750 MG in NS 0.9% 250 ml 250 ML IVPB SCH (14:00)
[2024-09-26] MEDS: DOXYcycline 100 MG in NS 0.9% 250 ml 250 ML IVPB SCH (14:25)
[2024-09-26] MEDS: Vancomycin 500 MG in NS 0.9% 250 ML IVPB SCH (14:25)
[2024-09-26] MEDS ORDERED: ceFAZolin 2 GM PREMIX 2 GM/50 ML BAG IV SCH (21:00)
[2024-09-26] MEDS: Aspirin EC 81 mg TAB.EC (enteric coated) PO SCH (22:13)
[2024-09-26] MEDS: CMC:Simvastatin 20 mg TAB (NF) PO SCH (22:13)
[2024-09-27 06:19] LABS: ABS Eosinophils 0.3 10^3/uL (0.0-0.5); ABS Lymphocytes 1.6 10^3/uL (1.0-4.8); ABS Monocytes 0.5 10^3/uL (0.0-1.1); ABS Neutrophils 3.7 10^3/uL (1.5-7.6); Eosinophil % 4.7 %; Hematocrit 29.9 % (38-53); Hemoglobin 10.2 g/dL (13.2-16.3); Lymphocyte % 25.7 %; Mean Corpuscular Hemoglobin 29.8 pg (27-33); Mean Corpuscular Volume 87.6 fL (80-97); Mean Platelet Volume 7.7 fL (7.5-11.2); Platelet Count 183 10^3/uL (150-450); Red Blood Count 3.41 10^6/uL (4.06-5.63); Red Cell Distribution Width 14.2 % (12-17); White Blood Count 6.1 10^3/uL (3.6-10.2)
[2024-09-27 06:42] LABS: Calcium 8.5 mg/dL (8.6-10.3); Creatinine, Serum 1.32 mg/dL (0.67-1.17); Magnesium 1.9 mg/dL (1.9-2.7); Potassium 4.5 mmol/L (3.5-5.0); eGFR CKD-EPI 55.6 (>60)
[2024-09-27] MEDS: Vancomycin 750 MG in NS 0.9% 250 ML IVPB SCH (11:27)
[2024-09-27] MEDS: Vancomycin 500 MG in NS 0.9% 250 ML IVPB SCH (13:22)
[2024-09-28 06:20] LABS: Hemoglobin 11.3 g/dL (13.2-16.3); Mean Corpuscular Hgb Conc 34.4 g/dL (31-36); Mean Corpuscular Volume 87.3 fL (80-97); Mean Platelet Volume 7.7 fL (7.5-11.2); Platelet Count 221 10^3/uL (150-450); Red Blood Count 3.77 10^6/uL (4.06-5.63); Red Cell Distribution Width 14.4 % (12-17); White Blood Count 6.3 10^3/uL (3.6-10.2)
[2024-09-28 06:40] LABS: Creatinine, Serum 1.41 mg/dL (0.67-1.17); Magnesium 1.9 mg/dL (1.9-2.7); Potassium 4.6 mmol/L (3.5-5.0); eGFR CKD-EPI 51.3 (>60)
[2024-09-28] MEDS: Magnesium Sulfate IV 1GM/100ML 1 GM/100 ML BAG IV ONE (08:23)
[2024-09-28] MEDS: Vancomycin Trough Check NOTE FOLLOW UP ONE (12:11)
[2024-09-29 06:23] LABS: ABS Basophils 0.1 10^3/uL (0.0-0.1); ABS Eosinophils 0.3 10^3/uL (0.0-0.5); ABS Lymphocytes 1.3 10^3/uL (1.0-4.8); ABS Monocytes 0.6 10^3/uL (0.0-1.1); ABS Neutrophils 4.4 10^3/uL (1.5-7.6); ABS Nucleated RBC 0.01 10^3/ul; Eosinophil % 4.7 %; Hematocrit 34.4 % (38-53); Hemoglobin 11.9 g/dL (13.2-16.3); Lymphocyte % 19.1 %; Mean Corpuscular Hemoglobin 30.3 pg (27-33); Mean Corpuscular Hgb Conc 34.6 g/dL (31-36); Mean Corpuscular Volume 87.6 fL (80-97); Mean Platelet Volume 7.5 fL (7.5-11.2); Nucleated Red Blood Cells % 0.1 %/100WBC (0.0-0.8); Platelet Count 246 10^3/uL (150-450); Red Blood Count 3.93 10^6/uL (4.06-5.63); Red Cell Distribution Width 14.2 % (12-17); White Blood Count 6.6 10^3/uL (3.6-10.2)
[2024-09-29 06:52] LABS: Calcium 8.6 mg/dL (8.6-10.3); Creatinine, Serum 1.21 mg/dL (0.67-1.17); Potassium 4.6 mmol/L (3.5-5.0); eGFR CKD-EPI 61.7 (>60)
[2024-09-29] MEDS ORDERED: Buffered Lidocaine 1% SYRIN 1 ml INTRADERM ONE (09:49)
[2024-09-29] MEDS ORDERED: Ondansetron 4 mg VIAL 2 MG/ML 2 ml VIAL IV PRN (09:49)
[2024-09-29] MEDS ORDERED: Naloxone 0.4 mg VIAL 0.4 mg/ml 1 ml VIAL IV PRN (09:49)
[2024-09-29] MEDS ORDERED: fentaNYL 100 mcg/2 ml 50 MCG/ML VIAL IV PRN (09:49)
[2024-09-29] MEDS ORDERED: Acetaminophen IV 1 GM/100ML 1,000 MG/100 ML BAG IV ONE (09:49)
[2024-09-29] MEDS ORDERED: NS 0.45% 1000 ml BAG 1,000 ML IV SCH (10:00)
[2024-09-29] MEDS: Lactated Ringers 1000 ml BAG 1,000 ML IV SCH (11:46)
[2024-09-29 13:28] VITALS: BP 155/92
[2024-09-30] MEDS ORDERED: Vancomycin Trough Check NOTE FOLLOW UP ONE (10:30)
== END 2024-09-29 14:37 | disposition home or self-care (01) | DRG 603 ==
LOC: ED 15:15 → EDHOLD 15:15 → SUATTDRO 09-26 00:29 → MED 09-26 03:14
PROVIDERS: ADMIT Internal Medicine; ATTEND Internal Medicine

== ENCOUNTER 2024-10-02 21:02 | Inpatient (IN) ==
[2024-10-02 21:43] LABS: ABS Basophils 0.1 10^3/uL (0.0-0.1); ABS Eosinophils 0.1 10^3/uL (0.0-0.5); ABS Monocytes 0.3 10^3/uL (0.0-1.1); ABS Neutrophils 6.2 10^3/uL (1.5-7.6); ABS Nucleated RBC 0.01 10^3/ul; Eosinophil % 1.9 %; Hematocrit 31.7 % (38-53); Hemoglobin 10.8 g/dL (13.2-16.3); Lymphocyte % 12.4 %; Mean Corpuscular Hemoglobin 29.9 pg (27-33); Mean Corpuscular Hgb Conc 34.1 g/dL (31-36); Mean Corpuscular Volume 87.8 fL (80-97); Mean Platelet Volume 7.3 fL (7.5-11.2); Nucleated Red Blood Cells % 0.1 %/100WBC (0.0-0.8); Platelet Count 287 10^3/uL (150-450); Red Blood Count 3.62 10^6/uL (4.06-5.63); Red Cell Distribution Width 14.2 % (12-17); White Blood Count 7.7 10^3/uL (3.6-10.2)
[2024-10-02 21:48] LABS: Activated Partial Thrombo Time 27.8 seconds (26.0-38.0); INR 0.97 (0.85-1.14)
[2024-10-02 21:50] LABS: Albumin 3.8 g/dL (3.5-5.7); Albumin/Globulin Ratio 1.5 (1-3); C Reactive Protein 31.26 mg/L (<8.01); Calcium 8.8 mg/dL (8.6-10.3); Creatinine, Serum 1.62 mg/dL (0.67-1.17); Globulin 2.5 g/dL (2-4); Total Bilirubin 0.6 mg/dL (0.2-1.0); Total Protein 6.3 g/dL (6.4-8.9); eGFR CKD-EPI 43.4 (>60)
[2024-10-02 22:57] LABS: High Sensitivity Troponin 1 Hr 7 pg/mL (<20)
[2024-10-02] MEDS: Piperacillin/Tazobac 3.375 BAG 3.375 GM/100 ML BAG IV ONE (23:12)
[2024-10-02] MEDS: Vancomycin 1,250 MG in NS 0.9% 250 ml 250 ML IVPB ONE (23:43)
[2024-10-03] MEDS: Lactated Ringers 1000 ml BAG 1,000 ML IV ONE (01:17)
[2024-10-03 01:36] LABS: Erythrocyte Sed Rate 46 mm/Hr (0-19)
[2024-10-03] MEDS ORDERED: Naloxone Nasal Spray 4 MG/0.1 ML NASAL.SPR INTRANASAL PRN (02:13)
[2024-10-03 02:17] LABS: Urine Appearance Clear; Urine Bacteria Absent /HPF (Absent); Urine Bilirubin Negative (Negative); Urine Blood Trace (Negative); Urine Color Light-Yellow; Urine Glucose 4+ (>=1000 mg/dL) (Negative); Urine Ketones Negative (Negative); Urine Nitrite Negative (Negative); Urine Protein 2+ (>=100 mg/dL) (Negative); Urine Red Blood Cell Trace(0-2/hpf) /HPF (0-Trace); Urine Specific Gravity 1.023 (1.002-1.030); Urine Urobilinogen Negative (Negative); Urine White Blood Cell Absent /HPF (0-Trace); Urine pH 5.5 (5.0-8.0)
[2024-10-03] MEDS ORDERED: Dextrose 50% Syringe 50 ml 25 GM/50 ML SYRINGE IV PUSH PRN (02:46)
[2024-10-03] MEDS ORDERED: Zosyn per Pharmacy NOTE FOLLOW UP SCH (04:00)
[2024-10-03] MEDS ORDERED: Vancomycin per Pharmacy 1 EA NOTE FOLLOW UP SCH (04:00)
[2024-10-03] MEDS: Lactated Ringers 1000 ml BAG 1,000 ML IV SCH (04:07)
[2024-10-03] MEDS: Heparin 5000 UNITS/ML 1 mL VIAL SUBCUT SCH (05:46)
[2024-10-03] MEDS: ZOSYN 3.375 GM x ONE DOSE over 30 miuntes IV (06:31)
[2024-10-03] MEDS ORDERED: Polyethylene Glycol 3350 17 GM PACKET PO PRN (09:00)
[2024-10-03] MEDS: Sodium Bicarb 650 mg (ANTACID) TAB PO SCH (09:53)
[2024-10-03] MEDS: ZOSYN 3.375 GM Q8H per EXTENDED INFUSION IV SCH (10:58)
[2024-10-03] MEDS: HYDROcodone/ACETAMIN 5/325 mg TAB PO PRN (15:05)
[2024-10-03] MEDS ORDERED: Aspirin EC 81 mg TAB.EC (enteric coated) PO SCH (21:00)
[2024-10-03] MEDS: Simvastatin 10 mg TAB (NF) PO SCH (21:14)
[2024-10-03] MEDS: Vancomycin 1000 MG in NS 0.9% 250 ML IVPB SCH (21:16)
[2024-10-04 06:44] LABS: ABS Basophils 0.1 10^3/uL (0.0-0.1); ABS Eosinophils 0.2 10^3/uL (0.0-0.5); ABS Lymphocytes 1.1 10^3/uL (1.0-4.8); ABS Monocytes 0.3 10^3/uL (0.0-1.1); ABS Neutrophils 4.2 10^3/uL (1.5-7.6); ABS Nucleated RBC 0.01 10^3/ul; Eosinophil % 3.5 %; Hematocrit 25.9 % (38-53); Hemoglobin 9.1 g/dL (13.2-16.3); Lymphocyte % 18.7 %; Mean Corpuscular Hemoglobin 30.9 pg (27-33); Mean Corpuscular Hgb Conc 35.2 g/dL (31-36); Mean Corpuscular Volume 87.8 fL (80-97); Mean Platelet Volume 7.2 fL (7.5-11.2); Nucleated Red Blood Cells % 0.1 %/100WBC (0.0-0.8); Platelet Count 217 10^3/uL (150-450); Red Blood Count 2.95 10^6/uL (4.06-5.63); White Blood Count 5.8 10^3/uL (3.6-10.2)
[2024-10-04 07:08] LABS: Calcium 8.5 mg/dL (8.6-10.3); Creatinine, Serum 1.31 mg/dL (0.67-1.17); Potassium 4.8 mmol/L (3.5-5.0); eGFR CKD-EPI 56.1 (>60)
[2024-10-04 09:43] LABS: C Reactive Protein 112.12 mg/L (<8.01)
[2024-10-04] MEDS ORDERED: Zosyn per Pharmacy NOTE FOLLOW UP SCH (14:00)
[2024-10-04] MEDS: Piperacillin/Tazobac 3.375 BAG 3.375 GM/100 ML BAG IV ONE (14:59)
[2024-10-04] MEDS ORDERED: Vancomycin per Pharmacy 1 EA NOTE FOLLOW UP SCH (15:00)
[2024-10-04] MEDS: Vancomycin 1,250 MG IV x ONCE IVPB ONE (17:17)
[2024-10-04] MEDS: ZOSYN 3.375 GM Q8H per EXTENDED INFUSION IV SCH (20:50)
[2024-10-04] MEDS: Simvastatin 20 mg TAB (NF) PO SCH (22:35)
[2024-10-05 06:32] LABS: ABS Eosinophils 0.2 10^3/uL (0.0-0.5); ABS Monocytes 0.3 10^3/uL (0.0-1.1); Eosinophil % 3.4 %; Hematocrit 21.3 % (38-53); Hemoglobin 7.5 g/dL (13.2-16.3); Lymphocyte % 17.6 %; Mean Corpuscular Hemoglobin 30.6 pg (27-33); Mean Corpuscular Hgb Conc 35.2 g/dL (31-36); Mean Corpuscular Volume 87.1 fL (80-97); Mean Platelet Volume 7.3 fL (7.5-11.2); Platelet Count 223 10^3/uL (150-450); Red Blood Count 2.45 10^6/uL (4.06-5.63); Red Cell Distribution Width 13.8 % (12-17); White Blood Count 5.5 10^3/uL (3.6-10.2)
[2024-10-05 07:29] LABS: Calcium 8.1 mg/dL (8.6-10.3); Creatinine, Serum 1.48 mg/dL (0.67-1.17); Magnesium 1.6 mg/dL (1.9-2.7); Potassium 4.6 mmol/L (3.5-5.0); eGFR CKD-EPI 48.4 (>60)
[2024-10-05 09:53] LABS: Albumin 3.2 g/dL (3.5-5.7); Albumin/Globulin Ratio 1.5 (1-3); Direct Bilirubin 0.3 mg/dL (0.03-0.18); Globulin 2.2 g/dL (2-4); Indirect Bilirubin 1.5 mg/dL (0.3-1.0); Total Bilirubin 1.8 mg/dL (0.2-1.0); Total Protein 5.4 g/dL (6.4-8.9)
[2024-10-05 10:10] LABS: Hematocrit for Retic CNT 21.3 % (38-53); RBC Retic Count 2.45 10^6/ul (4.06-5.63)
[2024-10-05 10:12] LABS: Corrected Retic Count 0.1 % (0.5-1.5)
[2024-10-05] MEDS: Magnesium Sulfate 2 gm BAG 2 GM/50 ML BAG IVPB ONE (11:10)
[2024-10-05] MEDS: Magnesium Sulfate IV 1GM/100ML 1 GM/100 ML BAG IV ONE (12:26)
[2024-10-05 17:35] LABS: ABS Eosinophils 0.2 10^3/uL (0.0-0.5); ABS Lymphocytes 0.9 10^3/uL (1.0-4.8); ABS Monocytes 0.4 10^3/uL (0.0-1.1); ABS Neutrophils 3.7 10^3/uL (1.5-7.6); Eosinophil % 3.6 %; Hematocrit 21.5 % (38-53); Hemoglobin 7.5 g/dL (13.2-16.3); Lymphocyte % 16.6 %; Mean Corpuscular Hemoglobin 30.1 pg (27-33); Mean Corpuscular Hgb Conc 34.8 g/dL (31-36); Mean Corpuscular Volume 86.3 fL (80-97); Mean Platelet Volume 6.9 fL (7.5-11.2); Platelet Count 224 10^3/uL (150-450); Red Blood Count 2.49 10^6/uL (4.06-5.63); White Blood Count 5.2 10^3/uL (3.6-10.2)
[2024-10-05] MEDS: Vancomycin 1,250 MG in NS 0.9% 250 ml 250 ML IVPB SCH (18:32)
[2024-10-05] MEDS: Vancomycin Trough Check NOTE FOLLOW UP ONE (18:33)
[2024-10-05] MEDS ORDERED: Vancomycin Trough Check NOTE FOLLOW UP ONE (20:30)
[2024-10-06 02:11] LABS: Hepatitis C Antibody Negative (Negative)
[2024-10-06 05:53] LABS: ABS Eosinophils 0.2 10^3/uL (0.0-0.5); ABS Lymphocytes 0.8 10^3/uL (1.0-4.8); ABS Monocytes 0.4 10^3/uL (0.0-1.1); Eosinophil % 3.3 %; Hematocrit 21.2 % (38-53); Hemoglobin 7.2 g/dL (13.2-16.3); Mean Corpuscular Hemoglobin 29.8 pg (27-33); Mean Corpuscular Hgb Conc 33.9 g/dL (31-36); Mean Corpuscular Volume 87.9 fL (80-97); Mean Platelet Volume 7.4 fL (7.5-11.2); Platelet Count 245 10^3/uL (150-450); Red Blood Count 2.41 10^6/uL (4.06-5.63); Red Cell Distribution Width 13.9 % (12-17); White Blood Count 6.4 10^3/uL (3.6-10.2)
[2024-10-06 06:12] LABS: Calcium 8.2 mg/dL (8.6-10.3); Creatinine, Serum 1.4 mg/dL (0.67-1.17); Magnesium 2.1 mg/dL (1.9-2.7); Phosphorus 3.6 mg/dL (2.5-5.0); Potassium 4.6 mmol/L (3.5-5.0); eGFR CKD-EPI 51.8 (>60)
[2024-10-06] MEDS ORDERED: Senna TAB 8.6 mg TAB PO PRN (07:43)
[2024-10-06] MEDS ORDERED: Magnesium Hydroxide LIQ 30 ML UDC PO PRN (07:43)
[2024-10-06 08:42] LABS: Ferritin 937.5 ng/mL (24-336)
[2024-10-06 09:13] LABS: C Reactive Protein 40.55 mg/L (<8.01)
[2024-10-06] MEDS: Magnesium Hydroxide LIQ 30 ML UDC PO SCH (10:59)
[2024-10-06] MEDS: cefTRIAXone 1 gm/50 mL D5W 1 GM/50 ML BAG IV SCH (13:44)
[2024-10-06] MEDS: Vancomycin 1000 MG in NS 0.9% 250 ML IVPB SCH (17:47)
[2024-10-06 18:33] LABS: Albumin 3.4 g/dL (3.5-5.7); Albumin/Globulin Ratio 1.4 (1-3); Direct Bilirubin 0.3 mg/dL (0.03-0.18); Globulin 2.4 g/dL (2-4); Indirect Bilirubin 1.1 mg/dL (0.3-1.0); Total Bilirubin 1.4 mg/dL (0.2-1.0); Total Protein 5.8 g/dL (6.4-8.9)
[2024-10-06 18:55] LABS: Folate 15.56 ng/mL (5.90-24.80)
[2024-10-07 05:49] LABS: ABS Eosinophils 0.2 10^3/uL (0.0-0.5); ABS Lymphocytes 0.9 10^3/uL (1.0-4.8); ABS Monocytes 0.5 10^3/uL (0.0-1.1); ABS Neutrophils 4.1 10^3/uL (1.5-7.6); Eosinophil % 3.7 %; Hematocrit 18.9 % (38-53); Hemoglobin 6.5 g/dL (13.2-16.3); Lymphocyte % 15.9 %; Mean Corpuscular Hemoglobin 29.8 pg (27-33); Mean Corpuscular Hgb Conc 34.5 g/dL (31-36); Mean Corpuscular Volume 86.4 fL (80-97); Mean Platelet Volume 7.4 fL (7.5-11.2); Nucleated Red Blood Cells % 0.1 %/100WBC (0.0-0.8); Platelet Count 260 10^3/uL (150-450); Red Blood Count 2.19 10^6/uL (4.06-5.63); Red Cell Distribution Width 13.9 % (12-17); White Blood Count 5.7 10^3/uL (3.6-10.2)
[2024-10-07 06:05] LABS: Calcium 8.4 mg/dL (8.6-10.3); Creatinine, Serum 1.22 mg/dL (0.67-1.17); eGFR CKD-EPI 61.1 (>60)
[2024-10-07 10:40] LABS: Albumin 3.6 g/dL (3.5-5.7); Albumin/Globulin Ratio 1.5 (1-3); Direct Bilirubin 0.1 mg/dL (0.03-0.18); Globulin 2.4 g/dL (2-4); Total Bilirubin 0.8 mg/dL (0.2-1.0)
[2024-10-07 10:41] LABS: Indirect Bilirubin 0.7 mg/dL (0.3-1.0)
[2024-10-07 13:39] LABS: Hematocrit 21.3 % (38-53); Hemoglobin 7.6 g/dL (13.2-16.3)
[2024-10-07 18:21] LABS: TSH Ultra Thyroid Stim Horm 1.13 mcIU/mL (0.34-5.60)
[2024-10-07 21:59] LABS: Hemoglobin 7.2 g/dL (13.2-16.3)
[2024-10-07 22:35] LABS: Albumin 3.8 g/dL (3.5-5.7); Albumin/Globulin Ratio 1.5 (1-3); Calcium 8.7 mg/dL (8.6-10.3); Creatinine, Serum 1.4 mg/dL (0.67-1.17); Globulin 2.6 g/dL (2-4); Potassium 4.9 mmol/L (3.5-5.0); Total Bilirubin 0.8 mg/dL (0.2-1.0); Total Protein 6.4 g/dL (6.4-8.9); eGFR CKD-EPI 51.8 (>60)
[2024-10-08 05:53] LABS: ABS Eosinophils 0.2 10^3/uL (0.0-0.5); ABS Monocytes 0.5 10^3/uL (0.0-1.1); ABS Neutrophils 3.6 10^3/uL (1.5-7.6); Eosinophil % 3.7 %; Hematocrit 18.5 % (38-53); Hemoglobin 6.5 g/dL (13.2-16.3); Mean Corpuscular Hemoglobin 29.8 pg (27-33); Mean Corpuscular Hgb Conc 34.9 g/dL (31-36); Mean Corpuscular Volume 85.6 fL (80-97); Mean Platelet Volume 7.1 fL (7.5-11.2); Nucleated Red Blood Cells % 0.1 %/100WBC (0.0-0.8); Platelet Count 236 10^3/uL (150-450); Red Blood Count 2.16 10^6/uL (4.06-5.63); Red Cell Distribution Width 13.9 % (12-17); White Blood Count 5.5 10^3/uL (3.6-10.2)
[2024-10-08 06:34] LABS: Albumin 3.4 g/dL (3.5-5.7); Albumin/Globulin Ratio 1.4 (1-3); Calcium 8.4 mg/dL (8.6-10.3); Creatinine, Serum 1.22 mg/dL (0.67-1.17); Globulin 2.4 g/dL (2-4); Total Bilirubin 0.8 mg/dL (0.2-1.0); Total Protein 5.8 g/dL (6.4-8.9); eGFR CKD-EPI 61.1 (>60)
[2024-10-08 12:56] LABS: Hematocrit 24.9 % (38-53); Hemoglobin 8.8 g/dL (13.2-16.3)
[2024-10-08 19:08] LABS: Anaplasma phagocytophilum Negative (Negative); B. miyamotoi PCR, B Negative (Negative); Babesia divergens/MO-1 Negative (Negative); Babesia ducani Negative (Negative); Ehrlichia chaffeensis Negative (Negative); Ehrlichia ewingii/canis Negative (Negative); Ehrlichia muris eauclairensis Negative (Negative)
[2024-10-09 06:06] LABS: ABS Basophils 0.1 10^3/uL (0.0-0.1); ABS Eosinophils 0.2 10^3/uL (0.0-0.5); ABS Monocytes 0.6 10^3/uL (0.0-1.1); ABS Neutrophils 3.9 10^3/uL (1.5-7.6); ABS Nucleated RBC 0.01 10^3/ul; Eosinophil % 3.2 %; Hematocrit 21.5 % (38-53); Hemoglobin 7.5 g/dL (13.2-16.3); Lymphocyte % 17.1 %; Mean Corpuscular Hgb Conc 34.6 g/dL (31-36); Mean Corpuscular Volume 89.7 fL (80-97); Mean Platelet Volume 7.7 fL (7.5-11.2); Nucleated Red Blood Cells % 0.3 %/100WBC (0.0-0.8); Platelet Count 243 10^3/uL (150-450); Red Cell Distribution Width 14.3 % (12-17); White Blood Count 5.7 10^3/uL (3.6-10.2)
[2024-10-09 06:35] LABS: Albumin 3.6 g/dL (3.5-5.7); Albumin/Globulin Ratio 1.4 (1-3); Calcium 8.6 mg/dL (8.6-10.3); Creatinine, Serum 1.19 mg/dL (0.67-1.17); Globulin 2.5 g/dL (2-4); Potassium 4.8 mmol/L (3.5-5.0); Total Bilirubin 0.8 mg/dL (0.2-1.0); Total Protein 6.1 g/dL (6.4-8.9); eGFR CKD-EPI 62.9 (>60)
[2024-10-09] MEDS ORDERED: Vancomycin Trough Check NOTE FOLLOW UP ONE (16:30)
[2024-10-10 06:39] LABS: ABS Eosinophils 0.2 10^3/uL (0.0-0.5); ABS Monocytes 0.5 10^3/uL (0.0-1.1); ABS Neutrophils 3.5 10^3/uL (1.5-7.6); Eosinophil % 3.2 %; Hematocrit 20.1 % (38-53); Hemoglobin 7.2 g/dL (13.2-16.3); Lymphocyte % 19.2 %; Mean Corpuscular Hemoglobin 31.2 pg (27-33); Mean Corpuscular Hgb Conc 35.9 g/dL (31-36); Mean Platelet Volume 7.6 fL (7.5-11.2); Nucleated Red Blood Cells % 0.1 %/100WBC (0.0-0.8); Platelet Count 252 10^3/uL (150-450); Red Blood Count 2.31 10^6/uL (4.06-5.63); Red Cell Distribution Width 14.5 % (12-17); White Blood Count 5.2 10^3/uL (3.6-10.2)
[2024-10-10 06:58] LABS: Calcium 8.3 mg/dL (8.6-10.3); Creatinine, Serum 1.26 mg/dL (0.67-1.17); Potassium 4.5 mmol/L (3.5-5.0); eGFR CKD-EPI 58.7 (>60)
[2024-10-10 18:13] VITALS: BP 149/70
[2024-10-10 18:28] LABS: Calprotectin <50.0 mcg/g
== END 2024-10-10 18:35 | disposition home or self-care (01) | DRG 603 ==
LOC: ED 21:02 → EDHOLD 21:02 → SUATTDRO 10-03 01:44 → MED 10-03 02:38 → SSU 10-03 03:01 → SUATTDRO 10-04 13:36 → SSU 10-04 18:41 → MED 10-07 19:00
PROVIDERS: ADMIT Internal Medicine; ATTEND Internal Medicine